=== PATIENT | male | born 1955 | race Caucasian/White ===

== ENCOUNTER → 2020-08-06 14:04 | Outpatient (BNVA) | payer OTHER, SELFPAY | PROVIDERS: PCP Family Medicine; Visit Provider Surgery ==

== ENCOUNTER 2020-08-14 09:47 | Outpatient (REF) | payer OTHER, SELFPAY | END 2020-08-14 09:48 | disposition home or self-care (01) | LOC: HO.LAB 09:47 | PROVIDERS: PCP Family Medicine; Visit Provider Surgery | DX: D49.2 Neoplasm of unspecified behavior of bone, soft tissue, and skin (principal) | CPT/HCPCS: 11403; 88305 ==

== ENCOUNTER → 2020-08-21 10:27 | Outpatient (BNVA) | payer OTHER, SELFPAY | PROVIDERS: PCP Family Medicine; Visit Provider Surgery ==

== ENCOUNTER 2020-09-05 13:05 | Outpatient (REF) | payer OTHER, SELFPAY ==
--- NOTE | ~2020-09-05 | XR_ITS ---
EXAMINATION: XR HAND WRIST, LEFT CLINICAL INFORMATION: L40.50 - Arthropathic psoriasis, unspecified COMPARISON: None TECHNIQUE: The left hand and wrist are imaged together in 3 large [id number] images include both areas. There are a total of 3 views. FINDINGS: There is no fracture, dislocation, destructive process. Bony mineralization is normal. The ulnar variance is neutral. The carpus shows no joint narrowing or erosive change or chondrocalcinosis. The MCP and interphalangeal joints are unremarkable. There is an incidental subtle bone island central capitate carpal bone. No focal soft tissue swelling. The pronator quadratus fat pad appears normal. XR/XR hand wrist LT IMPRESSION: No focal arthropathy.
--- NOTE | ~2020-09-05 | XR_ITS ---
EXAMINATION: XR CERVICAL SPINE CLINICAL INFORMATION: L40.50 - Arthropathic psoriasis, unspecified COMPARISON: None TECHNIQUE: 3 views of the cervical spine were obtained. FINDINGS: There is a bodies are normal in height. There is no vertebral compression, destructive process, or prevertebral soft tissue swelling. The odontoid appears intact. There are degenerative disc changes with disc narrowing and vertebral spurring C3-C7. There is mild facet degeneration upper cervical spine. There is 3 mm retrolisthesis C4 on C5 and just under 3 mm retrolisthesis C5 on C6. Both areas likely related to the spondylosis. No erosive changes. No cervical rib. XR/XR cervical spine 3V IMPRESSION: Cervical spondylosis with multilevel degenerative disc and degenerative facet changes. Mild retrolisthesis C4-C5 and at C5-C6.
[2020-09-05 14:39] LABS: MANUAL DIFF FLAG NO
[2020-09-05 14:45] LABS: Basophils Percent Auto 0.6 % (0-2); Eosinophils Absolute Auto 0.2 X10*3/uL (0.0-0.4); Hematocrit 42.7 % (42-52); Hemoglobin 14.1 g/dl (14.0-18.0); Imm Gran Abs Auto 0.02 X10*3/uL (0.00-0.03); Imm Gran Pct Auto 0.3 % (0.0-0.4); Lymphocytes Absolute Auto 1.2 X10*3/uL (1.2-4.9); Mean Corpuscular Hemoglobin 28.8 pg (27.0-33.0); Mean Corpuscular Volume 87.1 fL (80-98); Mean Platelet Volume 10.3 fL (9.4-12.4); Monocytes Absolute Auto 0.5 X10*3/uL (0.1-1.2); Monocytes Percent Auto 7.8 % (2-11); Neutrophils Absolute Auto 4.8 X10*3/uL (2.0-8.3); Neutrophils Percent Auto 70.3 % (45-73); Platelet Count 299 X10*3/uL (160-400); Red Cell Distribution Width 13.1 % (11.0-16.0); White Blood Count 6.8 X10*3/uL (4.8-10.8)
[2020-09-05 15:05] LABS: Alanine Aminotransferase 29 U/L (0-40); Albumin Level 4.1 g/dL (3.5-5.0); Alkaline Phosphatase 103 U/L (39-117); Anion Gap 10 (12-20); Aspartate Amino Transferase 26 U/L (5-37); Bilirubin Total 0.6 mg/dL (0.0-1.0); Blood Urea Nitrogen 26 mg/dL (9-16); C Reactive Protein 0.48 mg/dL (< or = 0.50); Calcium 9.6 mg/dL (8.4-10.2); Carbon Dioxide 32 mmol/L (22-29); Chloride 103 mmol/L (96-108); Estimated Glomerular Filt Rate > 60; Glucose Random 105 mg/dL (60-115); Potassium 4.8 mmol/L (3.3-5.1); Rheumatoid Factor < 15.0 IU/mL (<15.0); Sodium 140 mmol/L (135-145); Total Protein 6.6 g/dL (6.5-8.0)
[2020-09-05 15:31] LABS: Erythrocyte Sedimentation Rate 6 MM/HR (0-15)
[2020-09-06 08:24] LABS: HBc Num1 0.06 S/CO (0.00-0.79); HBsAGNum1 0.18 S/CO (0.00-0.99); Hepatitis B Core Antibody Nonreactive (Nonreactive); Hepatitis B Surface Antigen Negative (Negative); ~HepC Num1 0.34 S/CO (0.00-0.79); ~Hepatitis C Antibody Nonreactive (Nonreactive)
[2020-09-06 08:31] LABS: Hepatitis A Antibody IgM 0.25 Index (0-0.79); ~Hepatitis A Antibody IgM Nonreactive (Nonreactive); ~Hepatitis B Surface Antibody NONREACTIVE (Nonreactive)
[2020-09-06 17:22] LABS: Lyme Abs Screen <0.90 index
[2020-09-08 22:12] LABS: Cyclic Citrullinated Peptide <16 UNITS
[2020-09-09 11:02] LABS: TS Negative Control Passed; TS Panel A 0; TS Panel B 0; TS Positive Control Passed; TSpotTB Negative (SeeBelow)
== END 2020-09-05 13:06 | disposition home or self-care (01) ==
LOC: HO.LAB 13:05
PROVIDERS: PCP Family Medicine; Visit Provider Student in an Organized Health Care Education/Training Program
DX: L40.50 Arthropathic psoriasis, unspecified (principal); M25.50 Pain in unspecified joint
CPT/HCPCS: 36415; 72040; 73110; 73130; 80053; 85025; 85652; 86140; 86200; 86431; 86481; 86618; 86704; 86706; 86709; 86803; 87340

== ENCOUNTER → 2020-09-26 13:29 | Outpatient (BNVA) | payer OTHER, SELFPAY | PROVIDERS: PCP Family Medicine; Visit Provider Student in an Organized Health Care Education/Training Program ==

== ENCOUNTER → 2021-01-09 12:25 | Outpatient (BNVA) | payer OTHER, SELFPAY | PROVIDERS: PCP Family Medicine; Visit Provider Student in an Organized Health Care Education/Training Program ==

== ENCOUNTER 2021-05-09 11:17 | Outpatient (REF) | payer OTHER, SELFPAY ==
[2021-05-09 12:25] LABS: MANUAL DIFF FLAG NO
[2021-05-09 12:54] LABS: Basophils Absolute Auto 0.1 X10*3/uL (0.0-0.2); Basophils Percent Auto 0.6 % (0-2); Eosinophils Absolute Auto 0.2 X10*3/uL (0.0-0.4); Eosinophils Percent Auto 2.4 % (0-4); Hematocrit 41.5 % (42-52); Hemoglobin 13.5 g/dl (14.0-18.0); Imm Gran Abs Auto 0.02 X10*3/uL (0.00-0.03); Imm Gran Pct Auto 0.2 % (0.0-0.4); Lymphocytes Absolute Auto 1.3 X10*3/uL (1.2-4.9); Lymphocytes Percent Auto 16.6 % (20-40); Mean Corpuscular HGB Conc 32.5 g/dl (31.0-36.0); Mean Corpuscular Hemoglobin 28.4 pg (27.0-33.0); Mean Corpuscular Volume 87.4 fL (80-98); Mean Platelet Volume 10.4 fL (9.4-12.4); Monocytes Absolute Auto 0.6 X10*3/uL (0.1-1.2); Monocytes Percent Auto 7.6 % (2-11); Neutrophils Absolute Auto 5.9 X10*3/uL (2.0-8.3); Neutrophils Percent Auto 72.6 % (45-73); Platelet Count 278 X10*3/uL (160-400); Red Blood Count 4.75 X10*6/uL (4.60-5.80); Red Cell Distribution Width 13.2 % (11.0-16.0); White Blood Count 8.1 X10*3/uL (4.8-10.8)
[2021-05-09 13:21] LABS: Alanine Aminotransferase 21 U/L (0-40); Albumin Level 4.1 g/dL (3.5-5.0); Alkaline Phosphatase 90 U/L (39-117); Anion Gap 14 (12-20); Aspartate Amino Transferase 26 U/L (5-37); Bilirubin Total 0.6 mg/dL (0.0-1.0); Blood Urea Nitrogen 26 mg/dL (9-16); C Reactive Protein 0.63 mg/dL (< or = 0.50); Calcium 9.6 mg/dL (8.4-10.2); Carbon Dioxide 24 mmol/L (22-29); Chloride 109 mmol/L (96-108); Estimated Glomerular Filt Rate 57; Glucose Random 103 mg/dL (60-115); Potassium 4.8 mmol/L (3.3-5.1); Sodium 142 mmol/L (135-145); Total Protein 6.6 g/dL (6.5-8.0)
[2021-05-09 13:44] LABS: Erythrocyte Sedimentation Rate 3 MM/HR (0-15)
[2021-05-12 08:11] LABS: HBS Num1 0.34 mIU/mL (0-7.99); HBc Num1 0.05 S/CO (0.00-0.79); HBsAGNum1 0.16 S/CO (0.00-0.99); Hepatitis B Core Antibody Nonreactive (Nonreactive); Hepatitis B Surface Antigen Negative (Negative); ~Hepatitis B Surface Antibody NONREACTIVE (Nonreactive)
[2021-05-12 08:17] LABS: ~Hepatitis C Antibody Nonreactive (Nonreactive)
[2021-05-12 12:51] LABS: TS Negative Control Passed; TS Panel A 0; TS Panel B 0; TS Positive Control Passed; TSpotTB Negative (SeeBelow)
[2021-05-14 08:31] LABS: Hepatitis A Antibody IgM 0.18 Index (0-0.79); ~Hepatitis A Antibody IgM Nonreactive (Nonreactive)
== END 2021-05-09 11:18 | disposition home or self-care (01) ==
LOC: HO.LAB 11:17
PROVIDERS: PCP Family Medicine; Visit Provider Nurse Practitioner Family
DX: L40.50 Arthropathic psoriasis, unspecified (principal)
CPT/HCPCS: 36415; 80053; 85025; 85652; 86140; 86481; 86704; 86706; 86709; 86803; 87340

== ENCOUNTER 2021-05-29 15:54 | Outpatient (REF) | payer OTHER, SELFPAY ==
--- NOTE | ~2021-05-29 | MR_ITS ---
EXAMINATION: MR CERVICAL SPINE WITHOUT CONTRAST CLINICAL INFORMATION: Spondylosis without myelopathy or radiculopathy. COMPARISON: None available. TECHNIQUE: MRI of the cervical spine was performed using routine sequences without contrast. FINDINGS: There is reversal of the normal cervical lordosis. There is mild retrolisthesis of C4 on C5. Disc height loss is severe at C4-C5, moderate to severe C6-C7, and moderate at C3-C4 and C5-C6. No cervical cord signal abnormality is seen. The imaged portions of the intracranial contents appear normal. The extraspinal soft tissues appear normal. SPINAL LEVELS: C2-C3: No posterior disc abnormality. Severe left and moderate right facet arthropathy. No spinal canal or neural foraminal stenosis. C3-C4: Disc osteophyte complex with right more than left uncovertebral hypertrophy and severe right and moderate left facet arthropathy resulting in severe right neural foraminal stenosis. No spinal canal stenosis. C4-C5: Disc osteophyte complex with uncovertebral hypertrophy and moderate right and mild left facet arthropathy resulting in severe right and mild to moderate left neural foraminal stenosis. Mild spinal canal stenosis. C5-C6: Disc osteophyte complex with uncovertebral hypertrophy and mild facet arthropathy resulting in mild spinal canal stenosis and mild to moderate neural foraminal stenosis. C6-C7: Disc osteophyte complex with uncovertebral hypertrophy and mild facet arthropathy resulting in mild spinal canal stenosis and moderate left and mild right neural foraminal stenosis. C7-T1: Disc osteophyte complex without significant narrowing the spinal canal. Mild left neural foraminal stenosis. MR/MR cervical spine wo con IMPRESSION: Multilevel degenerative spondylosis without high-grade narrowing of the spinal canal. Neural foraminal stenosis is severe on the right at C3-C4, severe on the right at C4-C5, moderate on the left at C6-C7, and less advanced at other levels.
== END 2021-05-29 15:55 | disposition home or self-care (01) ==
LOC: HO.MRI 15:54
PROVIDERS: Visit Provider Nurse Practitioner Family
DX: M47.812 Spondylosis without myelopathy or radiculopathy, cervical region (principal); L40.50 Arthropathic psoriasis, unspecified
CPT/HCPCS: 72141

== ENCOUNTER 2021-09-02 12:29 | Outpatient (REF) | payer OTHER, SELFPAY ==
[2021-09-02 13:19] LABS: MANUAL DIFF FLAG NO
[2021-09-02 13:56] LABS: Basophils Absolute Auto 0.1 X10*3/uL (0.0-0.2); Basophils Percent Auto 0.7 % (0-2); Eosinophils Absolute Auto 0.2 X10*3/uL (0.0-0.4); Eosinophils Percent Auto 2.1 % (0-4); Hematocrit 44.4 % (42.0-52.0); Hemoglobin 14.4 g/dl (14.0-18.0); Imm Gran Abs Auto 0.02 X10*3/uL (0.00-0.03); Imm Gran Pct Auto 0.2 % (0.0-0.4); Lymphocytes Absolute Auto 1.5 X10*3/uL (1.2-4.9); Lymphocytes Percent Auto 17.1 % (20-40); Mean Corpuscular HGB Conc 32.4 g/dl (31.0-36.0); Mean Corpuscular Hemoglobin 28.3 pg (27.0-33.0); Mean Corpuscular Volume 87.2 fL (80.0-98.0); Mean Platelet Volume 10.5 fL (9.4-12.4); Monocytes Absolute Auto 0.6 X10*3/uL (0.1-1.2); Monocytes Percent Auto 7.1 % (2-11); Neutrophils Absolute Auto 6.2 x10*3/uL (2.0-8.3); Neutrophils Percent Auto 72.8 % (45-73); Platelet Count 316 X10*3/uL (160-400); Red Blood Count 5.09 X10*6/uL (4.60-5.80); Red Cell Distribution Width 12.9 % (11.0-16.0); White Blood Count 8.5 X10*3/uL (4.8-10.8)
[2021-09-02 14:31] LABS: Alanine Aminotransferase 27 U/L (0-40); Albumin Level 4.3 g/dL (3.5-5.0); Alkaline Phosphatase 97 U/L (39-117); Anion Gap 12 (12-20); Aspartate Amino Transferase 28 U/L (5-37); Bilirubin Total 0.7 mg/dL (0.0-1.0); Blood Urea Nitrogen 26 mg/dL (9-16); C Reactive Protein 0.97 mg/dL (< or = 0.50); Carbon Dioxide 28 mmol/L (22-29); Chloride 105 mmol/L (96-108); Estimated Glomerular Filt Rate > 60; Glucose Random 98 mg/dL (60-115); Potassium 4.9 mmol/L (3.3-5.1); Sodium 140 mmol/L (135-145); Total Protein 6.9 g/dL (6.5-8.0)
[2021-09-02 14:33] LABS: Erythrocyte Sedimentation Rate 5 MM/HR (0-15)
== END 2021-09-02 12:30 | disposition home or self-care (01) ==
LOC: HO.LAB 12:29
PROVIDERS: PCP Nurse Practitioner Adult Health; Visit Provider Nurse Practitioner Family
DX: L40.50 Arthropathic psoriasis, unspecified (principal); Z79.899 Other long term (current) drug therapy
CPT/HCPCS: 36415; 80053; 85025; 85652; 86140

== ENCOUNTER 2021-12-24 14:38 | Outpatient (REF) | payer OTHER, SELFPAY ==
--- NOTE | ~2021-12-24 | XR_ITS ---
EXAMINATION: BILATERAL HAND X-RAY CLINICAL INFORMATION: Psoriatic arthritis COMPARISON: Previous x-ray August 2020 TECHNIQUE: 3 views of each hand FINDINGS: Bone alignment is normal. No acute fracture or dislocation is seen. There is a small soft tissue calcification or ossification adjacent to the radial side of the left third MCP joint questionable for changes related to old trauma. There are small osteophytes, question subchondral cystic change and mild soft tissue swelling at the left first MCP joint. Joint spaces are otherwise normal. Soft tissues are otherwise normal. XR/XR hand RT min 3V IMPRESSION: Mild arthritis at the left first MCP joint. Small soft tissue ossification or calcification adjacent to the radial side of the left third MCP joint, question related to old trauma.
--- NOTE | ~2021-12-24 | XR_ITS ---
EXAMINATION: BILATERAL HAND X-RAY CLINICAL INFORMATION: Psoriatic arthritis COMPARISON: Previous x-ray August 2020 TECHNIQUE: 3 views of each hand FINDINGS: Bone alignment is normal. No acute fracture or dislocation is seen. There is a small soft tissue calcification or ossification adjacent to the radial side of the left third MCP joint questionable for changes related to old trauma. There are small osteophytes, question subchondral cystic change and mild soft tissue swelling at the left first MCP joint. Joint spaces are otherwise normal. Soft tissues are otherwise normal. XR/XR hand LT min 3V IMPRESSION: Mild arthritis at the left first MCP joint. Small soft tissue ossification or calcification adjacent to the radial side of the left third MCP joint, question related to old trauma.
[2021-12-24 14:55] LABS: MANUAL DIFF FLAG NO
[2021-12-24 15:06] LABS: Basophils Absolute Auto 0.1 X10*3/uL (0.0-0.2); Basophils Percent Auto 0.9 % (0-2); Eosinophils Absolute Auto 0.2 X10*3/uL (0.0-0.4); Eosinophils Percent Auto 2.9 % (0-4); Hematocrit 41.6 % (42.0-52.0); Hemoglobin 13.5 g/dl (14.0-18.0); Imm Gran Abs Auto 0.02 X10*3/uL (0.00-0.03); Imm Gran Pct Auto 0.2 % (0.0-0.4); Lymphocytes Absolute Auto 1.5 X10*3/uL (1.2-4.9); Lymphocytes Percent Auto 17.9 % (20-40); Mean Corpuscular HGB Conc 32.5 g/dl (31.0-36.0); Mean Corpuscular Hemoglobin 28.2 pg (27.0-33.0); Mean Platelet Volume 10.3 fL (9.4-12.4); Monocytes Absolute Auto 0.7 X10*3/uL (0.1-1.2); Neutrophils Absolute Auto 5.8 x10*3/uL (2.0-8.3); Neutrophils Percent Auto 70.1 % (45-73); Platelet Count 316 X10*3/uL (160-400); Red Blood Count 4.78 X10*6/uL (4.60-5.80); Red Cell Distribution Width 13.3 % (11.0-16.0); White Blood Count 8.2 X10*3/uL (4.8-10.8)
[2021-12-24 15:31] LABS: Alanine Aminotransferase 24 U/L (0-40); Alkaline Phosphatase 87 U/L (39-117); Anion Gap 12 (12-20); Aspartate Amino Transferase 26 U/L (5-37); Bilirubin Total 0.4 mg/dL (0.0-1.0); Blood Urea Nitrogen 22 mg/dL (9-16); C Reactive Protein 0.55 mg/dL (< or = 0.50); Calcium 9.3 mg/dL (8.4-10.2); Carbon Dioxide 27 mmol/L (22-29); Chloride 106 mmol/L (96-108); Estimated Glomerular Filt Rate 49; Glucose Random 100 mg/dL (60-115); Potassium 4.7 mmol/L (3.3-5.1); Sodium 140 mmol/L (135-145); Total Protein 6.4 g/dL (6.5-8.0)
[2021-12-24 15:52] LABS: Erythrocyte Sedimentation Rate 6 MM/HR (0-15)
== END 2021-12-24 14:39 | disposition home or self-care (01) ==
LOC: HO.XRAY 14:38
PROVIDERS: Visit Provider Nurse Practitioner Family
DX: L40.50 Arthropathic psoriasis, unspecified (principal)
CPT/HCPCS: 36415; 73130; 80053; 85025; 85652; 86140

== ENCOUNTER 2022-01-02 13:26 | Outpatient (REF) | payer OTHER, SELFPAY ==
[2022-01-02 14:24] LABS: Creatinine Urine 49.52 mg/dL; Microalbumin Urine < 5.0 mg/L
[2022-01-02 14:28] LABS: Alanine Aminotransferase 25 U/L (0-40); Albumin Level 4.1 g/dL (3.5-5.0); Alkaline Phosphatase 88 U/L (39-117); Anion Gap 11 (12-20); Aspartate Amino Transferase 29 U/L (5-37); Bilirubin Total 0.6 mg/dL (0.0-1.0); Blood Urea Nitrogen 19 mg/dL (9-16); Calcium 9.4 mg/dL (8.4-10.2); Carbon Dioxide 26 mmol/L (22-29); Chloride 103 mmol/L (96-108); Estimated Glomerular Filt Rate 51; Glucose Random 104 mg/dL (60-115); Potassium 4.4 mmol/L (3.3-5.1); Sodium 136 mmol/L (135-145); Total Protein 6.5 g/dL (6.5-8.0)
== END 2022-01-02 13:27 | disposition home or self-care (01) ==
LOC: HO.LAB 13:26
PROVIDERS: Visit Provider Nurse Practitioner Family
DX: R79.89 Other specified abnormal findings of blood chemistry (principal)
CPT/HCPCS: 36415; 80053; 82043

== ENCOUNTER 2022-05-08 12:28 | Outpatient (REF) | payer OTHER, SELFPAY ==
--- NOTE | ~2022-05-08 | XR_ITS ---
EXAMINATION: XR FOOT, LEFT CLINICAL INFORMATION: Arthropathic psoriasis COMPARISON: None TECHNIQUE: AP, lateral, and oblique views of the left foot. FINDINGS: The bones and soft tissues are normal. No fracture. Alignment is anatomic. Joint spaces are maintained. XR/XR foot LT 2V IMPRESSION: Normal left foot.
--- NOTE | ~2022-05-08 | XR_ITS ---
EXAMINATION: XR FOOT, RIGHT CLINICAL INFORMATION: Arthropathic psoriasis COMPARISON: None TECHNIQUE: AP, lateral, and oblique views of the right foot. FINDINGS: The bones and soft tissues are normal. No fracture. Alignment is anatomic. Joint spaces are maintained. There is plantar and superior calcaneal spurring. XR/XR foot RT 2V IMPRESSION: Normal right foot. Calcaneal spurring
[2022-05-08 12:42] LABS: MANUAL DIFF FLAG NO
[2022-05-08 13:26] LABS: Basophils Absolute Auto 0.1 X10*3/uL (0.0-0.2); Basophils Percent Auto 0.8 % (0-2); Eosinophils Absolute Auto 0.2 X10*3/uL (0.0-0.4); Hematocrit 44.5 % (42.0-52.0); Hemoglobin 14.7 g/dl (14.0-18.0); Imm Gran Abs Auto 0.02 X10*3/uL (0.00-0.03); Imm Gran Pct Auto 0.3 % (0.0-0.4); Lymphocytes Absolute Auto 1.4 X10*3/uL (1.2-4.9); Lymphocytes Percent Auto 17.4 % (20-40); Mean Corpuscular Hemoglobin 28.8 pg (27.0-33.0); Mean Corpuscular Volume 87.3 fL (80.0-98.0); Mean Platelet Volume 10.1 fL (9.4-12.4); Monocytes Absolute Auto 0.6 X10*3/uL (0.1-1.2); Monocytes Percent Auto 7.7 % (2-11); Neutrophils Absolute Auto 5.7 x10*3/uL (2.0-8.3); Neutrophils Percent Auto 71.8 % (45-73); Platelet Count 328 X10*3/uL (160-400); Red Cell Distribution Width 12.8 % (11.0-16.0); White Blood Count 7.9 X10*3/uL (4.8-10.8)
[2022-05-08 13:47] LABS: Alanine Aminotransferase 20 U/L (0-40); Albumin Level 4.3 g/dL (3.5-5.0); Alkaline Phosphatase 92 U/L (39-117); Anion Gap 17 (12-20); Aspartate Amino Transferase 22 U/L (5-37); Bilirubin Total 0.6 mg/dL (0.0-1.0); Blood Urea Nitrogen 17 mg/dL (9-16); C Reactive Protein 0.96 mg/dL (< or = 0.50); Calcium 9.9 mg/dL (8.4-10.2); Carbon Dioxide 29 mmol/L (22-29); Chloride 103 mmol/L (96-108); Estimated Glomerular Filt Rate > 60; Glucose Random 91 mg/dL (60-115); Potassium 5.5 mmol/L (3.3-5.1); Sodium 143 mmol/L (135-145)
[2022-05-08 14:12] LABS: Erythrocyte Sedimentation Rate 7 MM/HR (0-15)
[2022-05-11 04:37] LABS: HBc Num1 0.13 S/CO (0.00-0.79); HBsAGNum1 0.17 S/CO (0.00-0.99); Hepatitis B Core Antibody Nonreactive (Nonreactive); Hepatitis B Surface Antigen Negative (Negative); ~HepC Num1 0.43 S/CO (0.00-0.79); ~Hepatitis B Surface Antibody NONREACTIVE (Nonreactive); ~Hepatitis C Antibody Nonreactive (Nonreactive)
[2022-05-11 21:32] LABS: TS Negative Control Passed; TS Panel A 1; TS Panel B 2; TS Positive Control Passed; TSpotTB Negative (Negative)
[2022-05-13 04:05] LABS: Hepatitis A Antibody IgM 0.21 Index (0-0.79); ~Hepatitis A Antibody IgM Nonreactive (Nonreactive)
== END 2022-05-08 12:29 | disposition home or self-care (01) ==
LOC: HO.XRAY 12:28
PROVIDERS: Visit Provider Nurse Practitioner Family
DX: L40.50 Arthropathic psoriasis, unspecified (principal)
CPT/HCPCS: 36415; 73620; 80053; 85025; 85652; 86140; 86481; 86704; 86706; 86709; 86803; 87340

== ENCOUNTER 2022-05-11 11:50 | Outpatient (REF) | payer OTHER, SELFPAY ==
[2022-05-11 12:48] LABS: Alanine Aminotransferase 20 U/L (0-40); Aspartate Amino Transferase 20 U/L (5-37); Estimated Glomerular Filt Rate > 60; Potassium 4.5 mmol/L (3.3-5.1)
== END 2022-05-11 11:51 | disposition home or self-care (01) ==
LOC: HO.LAB 11:50
PROVIDERS: Visit Provider Nurse Practitioner Family
DX: L40.50 Arthropathic psoriasis, unspecified (principal); E87.5 Hyperkalemia
CPT/HCPCS: 36415; 82565; 84132; 84450; 84460

== ENCOUNTER 2022-07-06 14:22 | Outpatient (REF) | payer OTHER, SELFPAY ==
[2022-07-06 15:49] LABS: Anion Gap 11 (12-20); Blood Urea Nitrogen 24 mg/dL (9-16); Calcium 9.4 mg/dL (8.4-10.2); Carbon Dioxide 28 mmol/L (22-29); Chloride 106 mmol/L (96-108); Estimated Glomerular Filt Rate > 60; Glucose Random 90 mg/dL (60-115); Potassium 4.7 mmol/L (3.3-5.1); Sodium 140 mmol/L (135-145)
== END 2022-07-06 14:23 | disposition home or self-care (01) ==
LOC: HO.LAB 14:22
PROVIDERS: PCP Student in an Organized Health Care Education/Training Program; Visit Provider Student in an Organized Health Care Education/Training Program
DX: E87.5 Hyperkalemia (principal)
CPT/HCPCS: 36415; 80048

== ENCOUNTER → 2022-09-21 13:30 | Outpatient (BNVA) | payer MEDICARE, SELFPAY | PROVIDERS: PCP Student in an Organized Health Care Education/Training Program; Visit Provider Nurse Practitioner Family | DX: L40.50 Arthropathic psoriasis, unspecified (principal) | CPT/HCPCS: 99212 ==

== ENCOUNTER 2022-12-29 11:03 | Outpatient (REF) | payer MEDICARE, SELFPAY ==
[2022-12-29 11:18] LABS: MANUAL DIFF FLAG NO
[2022-12-29 11:27] LABS: Basophils Absolute Auto 0.1 X10*3/uL (0.0-0.2); Basophils Percent Auto 0.8 % (0-2); Eosinophils Absolute Auto 0.3 X10*3/uL (0.0-0.4); Eosinophils Percent Auto 3.5 % (0-4); Hematocrit 43.5 % (42.0-52.0); Imm Gran Abs Auto 0.02 X10*3/uL (0.00-0.03); Imm Gran Pct Auto 0.3 % (0.0-0.4); Lymphocytes Absolute Auto 1.4 X10*3/uL (1.2-4.9); Lymphocytes Percent Auto 17.7 % (20-40); Mean Corpuscular HGB Conc 32.2 g/dl (31.0-36.0); Mean Corpuscular Hemoglobin 28.3 pg (27.0-33.0); Mean Corpuscular Volume 88.1 fL (80.0-98.0); Mean Platelet Volume 10.3 fL (9.4-12.4); Monocytes Absolute Auto 0.7 X10*3/uL (0.1-1.2); Monocytes Percent Auto 8.4 % (2-11); Neutrophils Absolute Auto 5.4 x10*3/uL (2.0-8.3); Neutrophils Percent Auto 69.3 % (45-73); Platelet Count 289 X10*3/uL (160-400); Red Blood Count 4.94 X10*6/uL (4.60-5.80); Red Cell Distribution Width 13.3 % (11.0-16.0); White Blood Count 7.7 X10*3/uL (4.8-10.8)
[2022-12-29 12:06] LABS: Alanine Aminotransferase 20 U/L (0-40); Aspartate Amino Transferase 21 U/L (5-37); C Reactive Protein 0.44 mg/dL (< or = 0.50); Estimated Glomerular Filt Rate 59
[2022-12-29 12:08] LABS: Erythrocyte Sedimentation Rate 3 MM/HR (0-15)
== END 2022-12-29 11:04 | disposition home or self-care (01) ==
LOC: HO.LAB 11:03
PROVIDERS: Visit Provider Nurse Practitioner Family
DX: L40.50 Arthropathic psoriasis, unspecified (principal)
CPT/HCPCS: 36415; 82565; 84450; 84460; 85025; 85652; 86140

== ENCOUNTER → 2023-01-06 10:43 | Outpatient (BNVA) | payer MEDICARE, SELFPAY | PROVIDERS: PCP Student in an Organized Health Care Education/Training Program; Visit Provider Internal Medicine Rheumatology | DX: L40.50 Arthropathic psoriasis, unspecified (principal); I10 Essential (primary) hypertension; Z79.1 Long term (current) use of non-steroidal anti-inflammatories (NSAID) | CPT/HCPCS: 99212 ==

== ENCOUNTER 2023-03-17 07:52 | Outpatient (REF) | payer MEDICARE, SELFPAY ==
[2023-03-17 08:24] LABS: MANUAL DIFF FLAG NO
[2023-03-17 08:42] LABS: Basophils Absolute Auto 0.1 X10*3/uL (0.0-0.2); Basophils Percent Auto 0.7 % (0-2); Eosinophils Absolute Auto 0.2 X10*3/uL (0.0-0.4); Hematocrit 43.2 % (42.0-52.0); Hemoglobin 14.1 g/dl (14.0-18.0); Imm Gran Abs Auto 0.02 X10*3/uL (0.00-0.03); Imm Gran Pct Auto 0.3 % (0.0-0.4); Lymphocytes Absolute Auto 1.3 X10*3/uL (1.2-4.9); Lymphocytes Percent Auto 17.1 % (20-40); Mean Corpuscular HGB Conc 32.6 g/dl (31.0-36.0); Mean Corpuscular Hemoglobin 29.2 pg (27.0-33.0); Mean Corpuscular Volume 89.4 fL (80.0-98.0); Mean Platelet Volume 10.6 fL (9.4-12.4); Monocytes Absolute Auto 0.7 X10*3/uL (0.1-1.2); Monocytes Percent Auto 8.7 % (2-11); Neutrophils Absolute Auto 5.4 x10*3/uL (2.0-8.3); Neutrophils Percent Auto 70.2 % (45-73); Platelet Count 296 X10*3/uL (160-400); Red Blood Count 4.83 X10*6/uL (4.60-5.80); Red Cell Distribution Width 13.3 % (11.0-16.0); White Blood Count 7.6 X10*3/uL (4.8-10.8)
[2023-03-17 08:57] LABS: Estimated Average Glucose 103 mg/dL; Hemoglobin A1c % 5.2 % (<6.0)
[2023-03-17 09:14] LABS: Alanine Aminotransferase 19 U/L (0-40); Albumin Level 3.9 g/dL (3.5-5.0); Alkaline Phosphatase 76 U/L (39-117); Anion Gap 11 (12-20); Aspartate Amino Transferase 25 U/L (5-37); Bilirubin Total 0.5 mg/dL (0.0-1.0); Blood Urea Nitrogen 24 mg/dL (9-16); Calcium 9.7 mg/dL (8.4-10.2); Carbon Dioxide 29 mmol/L (22-29); Chloride 107 mmol/L (96-108); Cholesterol 207 mg/dL (<200); Estimated Glomerular Filt Rate > 60; Glucose Random 103 mg/dL (60-115); HDL Cholesterol 57 mg/dL (>40); LDL Cholesterol Calculated 132 mg/dL (<100); Potassium 4.7 mmol/L (3.3-5.1); Sodium 142 mmol/L (135-145); Total Protein 6.6 g/dL (6.5-8.0); Triglycerides 94 mg/dL (<150)
[2023-03-17 09:19] LABS: Appearance Urine Clear; Color Urine Yellow; Glucose Urine UA Negative (Negative); Leukocyte Esterase Urine Trace (Negative); Nitrite Urine Negative (Negative); Specific Gravity - Urine 1.015 (1.005-1.025); UMIC TRIGGER UACC YES; Urine Blood Negative (Negative); Urine Ketones Negative (Negative); Urine Protein Negative (Neg-Trace)
[2023-03-17 09:22] LABS: Bacteria Urine None Seen (None Seen); Hyaline Casts Urine 0-2 /LPF (0-2); RBC Urine 0-2 /HPF (0-2); Squamous Epithelial Cell Urine 0-2 /HPF (0-2); WBC Urine 0-5 /HPF (0-5)
[2023-03-17 09:22] LABS: Erythrocyte Sedimentation Rate 5 MM/HR (0-15)
[2023-03-17 09:23] LABS: Prostate Specific Antigen Scr 1.93 ng/mL (<0.05-4.0)
[2023-03-17 09:30] LABS: Thyroid Stimulating Hormone 2.01 uIU/mL (0.32-4.0); Vitamin D 25-OH Total 84.4 ng/mL (>30)
[2023-03-18 13:13] LABS: Lyme Abs Screen <0.90 index
[2023-03-23 20:43] LABS: Babesia IgG <1:64 titer (<1:64); Babesia IgM <1:20 titer (<1:20)
[2023-03-25 13:39] LABS: A. Phagocytophilum Ab IgG <1:64 (<1:64); A. Phagocytophilum Ab IgM <1:20 (<1:20); E. Chaffeensis Ab IgG <1:64 (<1:64); E. Chaffeensis Ab IgM <1:20 (<1:20)
== END 2023-03-17 07:53 | disposition home or self-care (01) ==
LOC: HO.LAB 07:52
PROVIDERS: Absent Provider Student in an Organized Health Care Education/Training Program; PCP Student in an Organized Health Care Education/Training Program; Visit Provider Internal Medicine Rheumatology
DX: Z12.5 Encounter for screening for malignant neoplasm of prostate (principal); R63.4 Abnormal weight loss; E55.9 Vitamin D deficiency, unspecified
CPT/HCPCS: 36415; 80053; 80061; 81001; 82306; 83036; 84153; 84443; 85025; 85652; 86140; 86617; 86618; 86666; 86753

== ENCOUNTER 2023-06-09 09:11 | Outpatient (AMB) | payer MEDICARE, SELFPAY ==
[2023-06-09 09:13] VITALS: BP 132/70; PULSE 95; TEMP 36.1; O2SAT 95
--- NOTE | 2023-06-09 09:13 | A.OFFVIS_ITS ---
Intake Vital Signs 06/09/23 09:13 BP 132/70 Blood Pressure Location Lt brachial Position Sitting Pulse 95 Pulse Source Pulse Oximeter Temp 97 F Temp Source Skin Pulse Oximetry (%) 95 Intake Visit Reasons: PSA Intake Note: Patient presents today to follow up on PsA. c/o kiersten knee pain. Right knee pain and swelling started at the end of February. Left posterior knee pain started early April. 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 He continues to get intermittent knee pain. More recently this has been over the patellar tendons bilaterally. He is on some physical therapy for now but seems to say that when he does the exercises he feels a bit worse. He has not noticed any recent swelling in the knees. Occasionally there has been some left posterior knee pain. He also notes enlargement at the right sternoclavicular joint. This is occasionally uncomfortable. He gets occasional patches of scaly skin that he treats with a topical agent but for the most point there is very minimal psoriasis. He does not have any back or neck pains. He definitely wants to get back to skiing during the winter so was concerned about his functioning. He does take naproxen 500 mg twice a day which he thinks is quite helpful. He is on medications for blood pressure control as well. I have been concerned about his borderline elevated creatinine but it seems to have been relatively stable in the last year or 2. [facility] Medical History (Updated 06/09/23 @ 15:01 by Donny Gilliam MD) Seborrheic keratosis Hypertension Psoriatic arthritis Surgical History History of excision of mass History of appendectomy History of wisdom tooth extraction Family History Paternal Grandmother History of cancer (Updated 06/09/23 @ 09:19 by ANASTASIIA Galindo) Alcohol intake: current Alcohol intake frequency: a few times a month Alcohol type: beer Patient Tobacco Use Status: Never used Tobacco e-Cigarette/Vaping Use: Never Used Review of Systems Const Details: Negative for appetite change, weight change, fever, chills, malaise and fatigue Eyes Details: Negative for vision change, dry eyes,headaches and dizziness Card Details: Negative chest pain, edema and syncope Resp Details: Negative for SOB, cough and wheezing GI Details: Negative indigestion/heartburn, nausea, abdominal pain, bowel changes, diarrhea, constipation and bloody stool. Endo Details: Negative for polyuria and polydypsia Frank/Lymph Details: Negative for excessive bruising or bleeding. Physical Exam Vital Signs: Last Vital Signs Temp 97 F 06/09/23 09:13 Pulse 95 06/09/23 09:13 BP 132/70 06/09/23 09:13 Pulse Ox 95 06/09/23 09:13 APPEARANCE: Patient in no acute distress EYES no redness, pupils equal and reactive to light, eyelids normal EXTREMITIES: No edema, no calf tenderness, normal peripheral pulses. SKIN: No inflammatory or neoplastic lesions. Normal color and turgor JOINT EXAM: ?? EYES no redness, pupils equal and reactive to light, eyelids normal EXTREMITIES: No edema, no calf tenderness, normal peripheral pulses. SKIN: No inflammatory or neoplastic lesions. Normal color and turgor JOINT EXAM: Cervical Spine:? Full range of motion without pain; no tenderness. Thoracic Spine: No scoliosis.? No tenderness on palpation. Chest wall: There is enlargement, mostly bony, at the right sternolavicular joint. This area is only minimally tender without redness or warmth. Lumbar Spine:? Alignment normal.? Full range of motion without pain, no tenderness. Hands: LEFT: Bony enlargement of the CMC no tenderness, swelling, increased warmth or erythema.? There is some boutonniere deformity at the thumb. There is mild tenderness at the 1st MCP. The that joint may be slightly swollen. The remainder of the hand with normal pain-free range of motion without tenderness, swelling, increased warmth or erythema. Able to make a full fist and has a good butt maker strength. ? RIGHT:? Normal pain-free range of motion with some slight boutonniere deformity at the thumb. No areas of tenderness, swelling, increased warmth or erythema.? Able to make a full fist and has good butt maker strength. Wrists: Flexion and extension intact to 75 degrees. There is no tenderness, swelling, increased warmth or erythema. Elbows: Normal pain-free range of motion without tenderness, swelling, increased warmth or erythema. Shoulders:?? Full range of motion without pain. No tenderness, weakness, swellin g, increased warmth or erythema. Hips:? Full range of motion without pain. Hip bursa:? No tenderness. Knees:? right: There is slight pain with extremes of flexion. This is felt over the patellar tendon which is mildly tender but there is no redness or swelling. There is no joint margin tenderness, redness or swelling. No popliteal tenderness or swelling. Left: Normal pain-free range of motion with minimal tenderness over the patellar tendon. The joint space has no effusion, tenderness, soft tissue swelling, increased warmth or erythema.? There is no crepitation Ankles: Normal pain-free range of motion without tenderness, swelling, increased warmth or erythema. Feet: LEFT:? Bunion deformity at the 1st toe There is mild bony enlargement at the 1st toe and some hallux valgus deformity at the 1st toe but no tenderness. Elsewhere there is no tenderness, swelling, increased warmth or erythema. ?RIGHT:? Bunion deformity at the 1st MTP with some hallux valgus deformity and bony enlargement but no tenderness. The other joints have no tenderness or swelling. Some hammertoe deformity at the 2nd to thee ? 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 This could be a result of old trauma and secondary OA or could be some activity of psoriatic arthritis. Elsewhere there is some mild tenderness in the patellar tendons bilaterally which could be tendonitis from psoriatic arthritis or just overuse. I think for now he should continue with the efforts with physical therapy. I told him that if he wanted we could pursue treatment with DMARD therapy for possible psoriatic arthritis. That would run the risk of side effects such as infection if we use immunosuppressive drugs. He had trouble with a walking pneumonia that developed when he was on leflunomide in the past. We might consider Otezla since it does not seem to be as immunosuppressive. It does have the potential for GI side effects however. We will recheck his renal function and urine protein to monitor his naproxen use. A follow-up in 3 months or so seems reasonable. 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
== END 2023-06-09 09:56 | disposition home or self-care (01) ==
PROVIDERS: PCP Student in an Organized Health Care Education/Training Program; Visit Provider Internal Medicine Rheumatology
DX: L40.9 Psoriasis, unspecified (principal); Z79.1 Long term (current) use of non-steroidal anti-inflammatories (NSAID)
CPT/HCPCS: 99213

== ENCOUNTER → 2023-06-09 09:11 | Outpatient (BNVA) | payer MEDICARE, SELFPAY | PROVIDERS: PCP Student in an Organized Health Care Education/Training Program; Visit Provider Internal Medicine Rheumatology | DX: L40.50 Arthropathic psoriasis, unspecified (principal); Z79.1 Long term (current) use of non-steroidal anti-inflammatories (NSAID) | CPT/HCPCS: 99212 ==

== ENCOUNTER 2023-06-09 09:59 | Outpatient (REF) | payer MEDICARE, SELFPAY ==
[2023-06-09 10:44] LABS: Estimated Glomerular Filt Rate 50
[2023-06-09 11:15] LABS: Creatinine Urine 141.87 mg/dL; Total Protein Urine Random < 7 mg/dL (<12)
== END 2023-06-09 10:00 | disposition home or self-care (01) ==
LOC: HO.10HDL 09:59
PROVIDERS: Visit Provider Internal Medicine Rheumatology
DX: Z79.899 Other long term (current) drug therapy (principal)
CPT/HCPCS: 36415; 82565; 82570; 84156

== ENCOUNTER 2023-07-08 07:58 | Outpatient (REF) | payer MEDICARE, SELFPAY ==
[2023-07-08 09:06] LABS: MANUAL DIFF FLAG NO
[2023-07-08 09:23] LABS: Basophils Absolute Auto 0.1 X10*3/uL (0.0-0.2); Basophils Percent Auto 0.7 % (0-2); Eosinophils Absolute Auto 0.2 X10*3/uL (0.0-0.4); Eosinophils Percent Auto 2.6 % (0-4); Hematocrit 41.4 % (42.0-52.0); Hemoglobin 13.7 g/dl (14.0-18.0); Imm Gran Abs Auto 0.02 X10*3/uL (0.00-0.03); Imm Gran Pct Auto 0.2 % (0.0-0.4); Lymphocytes Absolute Auto 1.3 X10*3/uL (1.2-4.9); Lymphocytes Percent Auto 15.7 % (20-40); Mean Corpuscular HGB Conc 33.1 g/dl (31.0-36.0); Mean Corpuscular Hemoglobin 29.3 pg (27.0-33.0); Mean Corpuscular Volume 88.7 fL (80.0-98.0); Monocytes Absolute Auto 0.7 X10*3/uL (0.1-1.2); Monocytes Percent Auto 7.9 % (2-11); Neutrophils Percent Auto 72.9 % (45-73); Platelet Count 320 X10*3/uL (160-400); Red Blood Count 4.67 X10*6/uL (4.60-5.80); Red Cell Distribution Width 12.7 % (11.0-16.0); White Blood Count 8.2 X10*3/uL (4.8-10.8)
[2023-07-08 09:43] LABS: Alanine Aminotransferase 18 U/L (0-40); Albumin Level 3.9 g/dL (3.5-5.0); Alkaline Phosphatase 84 U/L (39-117); Anion Gap 12 (12-20); Aspartate Amino Transferase 21 U/L (5-37); Bilirubin Total 0.4 mg/dL (0.0-1.0); Blood Urea Nitrogen 23 mg/dL (9-16); C Reactive Protein 0.67 mg/dL (< or = 0.50); Calcium 9.8 mg/dL (8.4-10.2); Carbon Dioxide 28 mmol/L (22-29); Chloride 107 mmol/L (96-108); Estimated Glomerular Filt Rate > 60; Glucose Random 108 mg/dL (60-115); Potassium 4.8 mmol/L (3.3-5.1); Sodium 142 mmol/L (135-145); Total Protein 6.7 g/dL (6.5-8.0)
[2023-07-08 10:00] LABS: Erythrocyte Sedimentation Rate 7 MM/HR (0-15)
== END 2023-07-08 07:59 | disposition home or self-care (01) ==
LOC: HO.LAB 07:58
PROVIDERS: PCP Student in an Organized Health Care Education/Training Program; Visit Provider Student in an Organized Health Care Education/Training Program
DX: L40.50 Arthropathic psoriasis, unspecified (principal); L40.9 Psoriasis, unspecified; Z79.1 Long term (current) use of non-steroidal anti-inflammatories (NSAID)
CPT/HCPCS: 36415; 80053; 85025; 85652; 86140; 99212

== ENCOUNTER 2023-07-08 07:58 | Outpatient (AMB) | payer MEDICARE, SELFPAY ==
--- NOTE | 2023-07-08 08:11 | A.OFFVIS_ITS ---
Intake Vital Signs 07/08/23 08:15 Height 5 ft 9 in Weight 162 lb 14.746 oz BMI 24.1 BP 124/82 Blood Pressure Location Rt brachial Position Sitting Pulse 75 Pulse Source Pulse Oximeter Temp 97.4 F Temp Source Skin Pulse Oximetry (%) 99 Oxygen Delivery Method Room Air Intake Visit Reasons: PSA Intake Note: Patient presents today for follow up. Would like to discuss medication change. Reports right toe has been pointing up for a few weeks now. 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 He states that he was diagnosed psoriasis about 20 years ago and psoriatic arthritis in the 15 years ago. He stated that he was on Arava for 2-3 years and while he was on Arava would have walking pneumonia once a year. Since Arava was discontinued he did not have any recurrent pneumonias. Patient has been taking naproxen 500 mg Twice daily for years however he was recently evaluated by his PCP who advised him to take naproxen 500 mg in the morning and take Tylenol at night. He has been doing that for the last week without worsening symptoms. He states that he has hammertoe affecting his right 2nd toe and it is starting to affect his right 3rd toe. He has minimal left wrist pain today. Continues to have mild psoriasis aches patches, some on left elbow and scattered on his back and legs. Previous history by Dr. Gilliam: The patient presents for evaluation of his joint pains and psoriasis. He continues to get intermittent knee pain. More recently this has been over the patellar tendons bilaterally. He is on some physical therapy for now but seems to say that when he does the exercises he feels a bit worse. He has not noticed any recent swelling in the knees. Occasionally there has been some left posterior knee pain. He also notes enlarg ement at the right sternoclavicular joint. This is occasionally uncomfortable. He gets occasional patches of scaly skin that he treats with a topical agent but for the most point there is very minimal psoriasis. He does not have any back or neck pains. He definitely wants to get back to skiing during the winter so was concerned about his functioning. He does take naproxen 500 mg twice a day w hich he thinks is quite helpful. He is on medications for blood pressure control as well. I have been concerned about his borderline elevated creatinine but it seems to have been relatively stable in the last year or 2. [facility] Medical History Seborrheic keratosis Hypertension Psoriatic arthritis Surgical History History of excision of mass History of appendectomy History of wisdom tooth extraction Family History Paternal Grandmother History of cancer Social History Alcohol intake: current Alcohol intake frequency: a few times a month Alcohol type: beer Patient Tobacco Use Status: Never used Tobacco e-Cigarette/Vaping Use: Never Used Review of Systems Musc Reports deformity, Reports arthralgias, Reports joint swelling and Reports stiffness Skin/Breast Reports rash Physical Exam Vital Signs: Last Vital Signs Temp 97.4 F 07/08/23 08:15 Pulse 75 07/08/23 08:15 BP 124/82 07/08/23 08:15 Pulse Ox 99 07/08/23 08:15 Oxygen Delivery Method Room Air 07/08/23 08:15 BMI result Body Mass Index 24.1 Const General: cooperative, healthy appearing and comfortable Nutritional Appearance: average body habitus Orientation/consciousness: patient oriented x3 Limitations: no limitations HEENT Head: Yes normocephalic and Yes atraumatic Mouth: moist mucous membranes Resp Effort & Inspection: normal respiratory effort and able to speak in complete sentences Auscultation: clear to auscultation bilaterally Cardio Rate: regular rate Rhythm: regular rhythm GI Inspection: No distended Palpation (GI): Soft to palpation Skin Other: Psoriasis patch on extensor surface of left elbow, scattered tiny patches on back and legs Neuro General: patient oriented x3 Extrem Other: Mild dose oral left wrist tenderness and pain with flexion extension No active synovitis otherwise of both upper extremities Negative straight leg raise test bilaterally Negative Fabere test bilaterally Few nail pitting Right foot bunion Dactylitis affecting right 4th toe Assessment & Plan Assessment & Plan (1) Psoriatic arthritis: Comment: PSO dx in his 40s PsA dx in his 50s Arava in his 50s for 2-3 years developed 1 yearly episode of walking pneumonia. Did not recur when Arava was discontinued. Has been managing with naproxen since then Code(s): L40.50 - Arthropathic psoriasis, unspecified Plan: 67-year-old male with psoriasis and psoriatic arthritis returns for follow-up. 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 On exam he has dactylitis of his right foot mild left wrist synovitis. Needs to have psoriasis patches. In the past patient was on our of the for 2-3 years which was discontinued due to development of walking pneumonia every year. Arava has since been discontinued. Labs show fluctuating kidney function. I would like to reduce the need for NSAIDs. Patient needs another DMARD to treat his psoriasis and psoriatic arthritis. Discussed risks and benefits of Otezla. Patient agreed to proceed. 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 Check labs today to evaluate kidney function (4) Immunization counseling: Code(s): Z71.85 - Encounter for immunization safety counseling Plan: Patient will be seeing his PCP tomorrow. I suggested that patient get the flu vaccine for this season and new COVID booster Plan I spent 40 minutes reviewing patient's chart, evaluating patient, ordering diagnostic workup, counseling patient and documenting in the chart Orders: Orders Complete Blood Count Auto Diff 3 Months L40.50 - Arthropathic psoriasis, unspecified Erythrocyte Sedimentation Rate 3 Months L40.50 - Arthropathic psoriasis, unspecified Complete Blood Count Auto Diff Today L40.50 - Arthropathic psoriasis, unspecified Comprehensive Met. Panel Today L40.50 - Arthropathic psoriasis, unspecified Erythrocyte Sedimentation Rate Today L40.50 - Arthropathic psoriasis, unspecified Comprehensive Met. Panel 3 Months L40.50 - Arthropathic psoriasis, unspecified C Reactive Protein 3 Months L40.50 - Arthropathic psoriasis, unspecified C Reactive Protein Today L40.50 - Arthropathic psoriasis, unspecified Coding Level of Care Code Est Pt Level 5 (96360) Diagnoses Psoriatic arthritis L40.50 Psoriasis L40.9 Encntr long-term NSAID use Z79.1 Immunization counseling Z71.85
[2023-07-08 08:15] VITALS: BP 124/82; PULSE 75; TEMP 36.3; O2SAT 99; BMI 24.1
== END 2023-07-08 08:43 | disposition home or self-care (01) ==
PROVIDERS: PCP Student in an Organized Health Care Education/Training Program; Visit Provider Student in an Organized Health Care Education/Training Program
DX: L40.50 Arthropathic psoriasis, unspecified (principal); L40.9 Psoriasis, unspecified; Z79.1 Long term (current) use of non-steroidal anti-inflammatories (NSAID); Z71.85 Encounter for immunization safety counseling
CPT/HCPCS: 99215

== ENCOUNTER 2023-10-07 11:15 | Outpatient (REF) | payer MEDICARE, SELFPAY ==
[2023-10-07 11:25] LABS: MANUAL DIFF FLAG NO
[2023-10-07 11:30] LABS: Basophils Absolute Auto 0.1 X10*3/uL (0.0-0.2); Basophils Percent Auto 0.7 % (0-2); Eosinophils Absolute Auto 0.3 X10*3/uL (0.0-0.4); Eosinophils Percent Auto 3.7 % (0-4); Hematocrit 45.2 % (42.0-52.0); Imm Gran Abs Auto 0.01 X10*3/uL (0.00-0.03); Imm Gran Pct Auto 0.1 % (0.0-0.4); Lymphocytes Absolute Auto 1.6 X10*3/uL (1.2-4.9); Lymphocytes Percent Auto 22.3 % (20-40); Mean Corpuscular HGB Conc 33.2 g/dl (31.0-36.0); Mean Corpuscular Hemoglobin 29.1 pg (27.0-33.0); Mean Corpuscular Volume 87.6 fL (80.0-98.0); Mean Platelet Volume 10.2 fL (9.4-12.4); Monocytes Absolute Auto 0.6 X10*3/uL (0.1-1.2); Monocytes Percent Auto 9.2 % (2-11); Neutrophils Absolute Auto 4.5 x10*3/uL (2.0-8.3); Platelet Count 279 X10*3/uL (160-400); Red Blood Count 5.16 X10*6/uL (4.60-5.80); Red Cell Distribution Width 13.2 % (11.0-16.0)
[2023-10-07 12:39] LABS: Alanine Aminotransferase 26 U/L (0-40); Albumin Level 4.1 g/dL (3.5-5.0); Alkaline Phosphatase 82 U/L (39-117); Anion Gap 12 (12-20); Aspartate Amino Transferase 24 U/L (5-37); Bilirubin Total 0.5 mg/dL (0.0-1.0); Blood Urea Nitrogen 20 mg/dL (9-16); C Reactive Protein 0.37 mg/dL (< or = 0.50); Calcium 10.1 mg/dL (8.4-10.2); Carbon Dioxide 29 mmol/L (22-29); Chloride 104 mmol/L (96-108); Estimated Glomerular Filt Rate > 60; Glucose Random 120 mg/dL (60-115); Potassium 4.4 mmol/L (3.3-5.1); Sodium 141 mmol/L (135-145)
[2023-10-07 13:21] LABS: Erythrocyte Sedimentation Rate 2 MM/HR (0-15)
== END 2023-10-07 11:16 | disposition home or self-care (01) ==
LOC: HO.LAB 11:15
PROVIDERS: Visit Provider Student in an Organized Health Care Education/Training Program
DX: L40.50 Arthropathic psoriasis, unspecified (principal)
CPT/HCPCS: 36415; 80053; 85025; 85652; 86140

== ENCOUNTER 2023-10-13 15:20 | Outpatient (AMB) | payer MEDICARE, SELFPAY ==
--- NOTE | 2023-10-13 15:26 | A.OFFVIS_ITS ---
Intake Vital Signs 10/13/23 15:30 Height 5 ft 9 in Weight 161 lb 13.109 oz BMI 23.9 BP 140/72 H Blood Pressure Location Rt brachial Position Sitting Pulse 70 Pulse Source Pulse Oximeter Pulse Oximetry (%) 98 Oxygen Delivery Method Room Air Intake Visit Reasons: PsA/LVM Intake Note: Patient last seen 07/08/23 presents today for follow up and test results. Reports he started Otezla, tolerating well. 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 Started Otezla regularly about 3 months ago. Overall he feels less stiff and less joint pains overall. Left wrist pain significantly improved. Right toe swelling significantly improved. Continues to have intermittent right knee pain, he is having left shoulder pain today that he attributes to skiing yesterday. Psoriasis patches about the same on his right leg. Continues to take naproxen 500 mg daily States that Otezla will constant approximately 3300 dollars this year Previous history by Dr. Gilliam: The patient presents for evaluation of his joint pains and psoriasis. He continues to get intermittent knee pain. More recently this has been over the patellar tendons bilaterally. He is on some physical therapy for now but seems to say that when he does the exercises he feels a bit worse. He has not noticed any recent swelling in the knees. Occasionally there has been some left posterior knee pain. He also notes enlargement at the right sternoclavicular joint. This is occasionally uncomfortable. He gets occasional patches of scaly skin that he treats with a topical agent but for the most point there is very minimal psoriasis. He does not have any back or neck pains. He definitely wants to get back to skiing during the winter so was concerned about his functioning. He does take naproxen 500 mg twice a day which he thinks is quite helpful. He is on medications for blood pressure control as well. I have been concerned about his borderline elevated creatinine but it seems to have been relatively stable in the last year or 2. [facility] Medical History Seborrheic keratosis Hypertension Psoriatic arthritis Surgical History History of excision of mass History of appendectomy History of wisdom tooth extraction Family History Paternal Grandmother History of cancer Social History Alcohol intake: current Alcohol intake frequency: a few times a month Alcohol type: beer Patient Tobacco Use Status: Never used Tobacco e-Cigarette/Vaping Use: Never Used Review of Systems [facility] [place] Reports arthralgias Skin/Breast Reports rash Physical Exam Vital Signs: Last Vital Signs Pulse 70 10/13/23 15:30 BP 140/72 H 10/13/23 15:30 Pulse Ox 98 10/13/23 15:30 Oxygen Delivery Method Room Air 10/13/23 15:30 BMI result Body Mass Index 23.9 Const General: cooperative, healthy appearing and comfortable Nutritional Appearance: average body habitus Orientation/consciousness: patient oriented x3 Limitations: no limitations HEENT Head: Yes normocephalic and Yes atraumatic Resp Effort & Inspection: normal respiratory effort and able to speak in complete sentences Cardio Rate: regular rate Rhythm: regular rhythm GI Inspection: No distended Palpation (GI): Soft to palpation Skin Other: Tiny psoriasis patches on right calf Neuro General: patient oriented x3 Extrem Other: Left wrist swelling resolved, no pain with flexion and extension Normal range of motion of both shoulders with negative rotator cuff provocative maneuvers bilaterally No active synovitis otherwise of both upper extremities Negative straight leg raise test bilaterally Negative Fabere test bilaterally Few nail pitting Right foot bunion No dactylitis today Assessment & Plan Assessment & Plan (1) Psoriatic arthritis: Comment: PSO dx in his 40s PsA dx in his 50s LEF in his 50s for 2-3 years developed 1 yearly episode of walking pneumonia. Did not recur when LEF was discontinued. Has been managing with naproxen since then Otezla 06/2023 effective Code(s): L40.50 - Arthropathic psoriasis, unspecified Plan: 68-year-old male with psoriasis and psoriatic arthritis returns for follow-up. Otezla started 3 months ago. On exam today synovitis affecting left wrist and right 4th toe dactylitis has resolved. Inflammatory markers normalized. Doing much better on Otezla. Continues to take naproxen 500 mg daily. Today we had a long discussion about psoriatic arthritis versus degenerative arthritis. Patient would like to reduced his naproxen as much as possible Advised patient to try taking naproxen 250 mg daily instead of the 500 mg daily for a few weeks then stop naproxen altogether Continue with Otezla 30 mg Twice daily Labs before next visit in 4 months (2) Psoriasis: Code(s): L40.9 - Psoriasis, unspecified Plan: On exam patient has less psoriasis patches, he states however that his psoriasis rash is about the same. States that he has light box and will use it before the summer, continue to use topical cream (3) Encntr long-term NSAID use: Code(s): Z79.1 - terminal carman (current) use of non-steroidal anti-inflammatories (NSAID) Plan: Discussed long-term side effects of NSAIDs including nephro, GI and cardiac toxicity. Check labs periodically to evaluate kidney function Plan I spent 30 minutes reviewing patient's chart, evaluating patient, ordering diagnostic workup, counseling patient and documenting in the chart Orders: Orders Complete Blood Count Auto Diff 4 Months L40.50 - Arthropathic psoriasis, unspecified Comprehensive Met. Panel 4 Months L40.50 - Arthropathic psoriasis, unspecified C Reactive Protein 4 Months L40.50 - Arthropathic psoriasis, unspecified Erythrocyte Sedimentation Rate 4 Months L40.50 - Arthropathic psoriasis, unspecified Medications: New naproxen 250 mg PO DAILY PRN 30 tabs 1RF pain Coding Level of Care Code Est Pt Level 4 (00360) Diagnoses Psoriatic arthritis L40.50 Psoriasis L40.9 Encntr long-term NSAID use Z79.1
[2023-10-13 15:30] VITALS: BP 140/72; PULSE 70; O2SAT 98; BMI 23.9
== END 2023-10-13 16:02 | disposition home or self-care (01) ==
PROVIDERS: PCP Student in an Organized Health Care Education/Training Program; Visit Provider Student in an Organized Health Care Education/Training Program
DX: L40.50 Arthropathic psoriasis, unspecified (principal); L40.9 Psoriasis, unspecified; Z79.1 Long term (current) use of non-steroidal anti-inflammatories (NSAID)
CPT/HCPCS: 99214

== ENCOUNTER → 2023-10-13 15:20 | Outpatient (BNVA) | payer MEDICARE, SELFPAY | PROVIDERS: PCP Student in an Organized Health Care Education/Training Program; Visit Provider Student in an Organized Health Care Education/Training Program | DX: L40.50 Arthropathic psoriasis, unspecified (principal); M25.512 Pain in left shoulder; M25.569 Pain in unspecified knee; Z79.1 Long term (current) use of non-steroidal anti-inflammatories (NSAID) | CPT/HCPCS: 99212 ==

== ENCOUNTER 2024-05-17 14:43 | Outpatient (REF) | payer MEDICARE, SELFPAY ==
[2024-05-17 14:58] LABS: MANUAL DIFF FLAG NO
[2024-05-17 15:05] LABS: Basophils Absolute Auto 0.1 X10*3/uL (0.0-0.2); Basophils Percent Auto 0.6 % (0-2); Eosinophils Absolute Auto 0.3 X10*3/uL (0.0-0.4); Eosinophils Percent Auto 3.2 % (0-4); Imm Gran Abs Auto 0.03 X10*3/uL (0.00-0.03); Imm Gran Pct Auto 0.4 % (0.0-0.4); Lymphocytes Absolute Auto 1.4 X10*3/uL (1.2-4.9); Lymphocytes Percent Auto 17.1 % (20-40); Mean Corpuscular HGB Conc 33.3 g/dl (31.0-36.0); Mean Corpuscular Hemoglobin 29.6 pg (27.0-33.0); Mean Corpuscular Volume 88.8 fL (80.0-98.0); Mean Platelet Volume 9.9 fL (9.4-12.4); Monocytes Absolute Auto 0.6 X10*3/uL (0.1-1.2); Monocytes Percent Auto 7.4 % (2-11); Neutrophils Absolute Auto 5.9 x10*3/uL (2.0-8.3); Neutrophils Percent Auto 71.3 % (45-73); Platelet Count 302 X10*3/uL (160-400); Red Blood Count 5.07 X10*6/uL (4.60-5.80); Red Cell Distribution Width 12.7 % (11.0-16.0); White Blood Count 8.2 X10*3/uL (4.8-10.8)
[2024-05-17 16:06] LABS: Erythrocyte Sedimentation Rate 2 MM/HR (0-15)
[2024-05-17 16:53] LABS: Alanine Aminotransferase 34 U/L (0-40); Albumin Level 4.4 g/dL (3.5-5.0); Alkaline Phosphatase 68 U/L (39-117); Anion Gap 12 (12-20); Aspartate Amino Transferase 27 U/L (5-37); Bilirubin Total 0.5 mg/dL (0.0-1.0); Blood Urea Nitrogen 20 mg/dL (9-16); C Reactive Protein 0.25 mg/dL (< or = 0.50); Calcium 9.6 mg/dL (8.4-10.2); Carbon Dioxide 29 mmol/L (22-29); Chloride 104 mmol/L (96-108); Estimated Glomerular Filt Rate 56; Glucose Random 102 mg/dL (60-115); Potassium 5.1 mmol/L (3.3-5.1); Sodium 140 mmol/L (135-145); Total Protein 7.2 g/dL (6.5-8.0)
== END 2024-05-17 14:44 | disposition home or self-care (01) ==
LOC: HO.LAB 14:43
PROVIDERS: PCP Student in an Organized Health Care Education/Training Program; Visit Provider Student in an Organized Health Care Education/Training Program
DX: L40.50 Arthropathic psoriasis, unspecified (principal)
CPT/HCPCS: 36415; 80053; 85025; 85652; 86140

== ENCOUNTER 2024-05-22 14:48 | Outpatient (REF) | payer MEDICARE, SELFPAY | END 2024-05-22 14:49 | disposition home or self-care (01) | LOC: HO.XRAY 14:48 | PROVIDERS: PCP Student in an Organized Health Care Education/Training Program; Visit Provider Student in an Organized Health Care Education/Training Program | DX: M25.512 Pain in left shoulder (principal); M67.922 Unspecified disorder of synovium and tendon, left upper arm; S46.002A Unspecified injury of muscle(s) and tendon(s) of the rotator cuff of left shoulder, initial encounter; L40.50 Arthropathic psoriasis, unspecified; L40.9 Psoriasis, unspecified; Z79.1 Long term (current) use of non-steroidal anti-inflammatories (NSAID) | CPT/HCPCS: 73030; 99212 ==

== ENCOUNTER 2024-05-22 14:48 | Outpatient (AMB) | payer MEDICARE, SELFPAY ==
--- NOTE | 2024-05-22 14:50 | A.OFFVIS_ITS ---
Vital Signs 05/22/24 14:54 Height 5 ft 9 in Weight 159 lb 9.835 oz BMI 23.6 BP 116/62 Blood Pressure Location Rt brachial Position Sitting Pulse 78 Pulse Source Pulse Oximeter Pulse Oximetry (%) 98 Oxygen Delivery Method Room Air Intake Visit Reasons: PSA/CM Intake Note: Patient presents for PsA. Allergies No Known Allergies [No Known Allergies*] Allergy (Verified 05/22/24 14:52) Medication List - Last Reconciled 05/22/24 by Anat Galeas MD albuterol sulfate 90 mcg/actuation 2 puffs inhalation Q6H PRN clobetasol 0.05% 1 appl topical BID hydrochlorothiazide 12.5 mg PO DAILY lisinopril 30 mg PO DAILY naproxen 500 mg PO DAILY naproxen 250 mg PO DAILY PRN Otezla (apremilast) 30 mg PO BID NS HPI Comments Details: 68-year-old male with psoriasis and psoriatic arthritis returns for follow-up. He remains on Otezla 30 mg Twice daily. States that he has been doing quite well overall in terms of her psoriatic arthritis. Gets very rare flare-ups that are very short-lived. Does not use any NSAIDs. About a week ago while working he felt something pop in his left shoulder, this was associated with weakness and pain. He states that he believes he tore his rotator cuff of 1 of his shoulders many years ago. Psoriasis rash has been very well controlled. Previous history by Dr. Gilliam: The patient presents for evaluation of his joint pains and psoriasis. He continues to get intermittent knee pain. More recently this has been over the patellar tendons bilaterally. He is on some physical therapy for now but seems to say that when he does the exercises he feels a bit worse. He has not noticed any recent swelling in the knees. Oc casionally there has been some left posterior knee pain. He also notes enlargement at the right sternoclavicular joint. This is occasionally uncomfortable. He gets occasional patches of scaly skin that he treats with a topical agent but for the most point there is very minimal psoriasis. He does not have any back or neck pains. He definitely wants to get back to skiing during the winter so was concerned about his functioning. He does take naproxen 500 mg twice a day which he thinks is quite helpful. He is on medications for blood pressure control as well. I have been concerned about his borderline elevated creatinine but it seems to have been relatively stable in the last year or 2. [facility] Medical History Seborrheic keratosis Hypertension Psoriatic arthritis Surgical History History of excision of mass History of appendectomy History of wisdom tooth extraction Family History Paternal Grandmother History of cancer Daughter Drug overdose Social History Alcohol intake: current Alcohol intake frequency: a few times a month Alcohol type: beer Patient Tobacco Use Status: Never used Tobacco e-Cigarette/Vaping Use: Never Used Review of Systems [facility] Reports arthralgias and Reports muscle weakness Skin/Breast Denies rash Physical Exam Vital Signs: Last Vital Signs Pulse 78 05/22/24 14:54 BP 116/62 05/22/24 14:54 Pulse Ox 98 05/22/24 14:54 Oxygen Delivery Method Room Air 05/22/24 14:54 BMI result Body Mass Index 23.6 Const General: cooperative, healthy appearing and comfortable Nutritional Appearance: average body habitus Orientation/consciousness: patient oriented x3 Limitations: no limitations HEENT Head: Yes normocephalic and Yes atraumatic Resp Effort & Inspection: normal respiratory effort and able to speak in complete sentences Cardio Rate: regular rate Rhythm: regular rhythm GI Inspection: No distended Palpation (GI): Soft to palpation Skin Other: Tiny psoriasis patches on right calf Neuro General: patient oriented x3 Extrem Other: No active synovitis, both hands, wrists, elbows Normal range of motion of both shoulders with negative rotator cuff provocative maneuvers bilaterally Positive Speed's test on the left Some tenderness to palpation at the left shoulder anteriorly No active synovitis otherwise of both upper extremities Negative straight leg raise test bilaterally Negative Fabere test bilaterally Few nail pitting Right foot bunion No dactylitis today Assessment & Plan Assessment & Plan (1) Psoriatic arthritis: Comment: PSO dx in his 40s PsA dx in his 50s LEF in his 50s for 2-3 years developed 1 yearly episode of walking pneumonia. Did not recur when LEF was discontinued. Has been managing with naproxen since then Otezla 06/2023 effective Code(s): L40.50 - Arthropathic psoriasis, unspecified Category: Medical Plan: 68-year-old male with psoriasis and psoriatic arthritis returns for follow-up. On Otezla 30 mg Twice daily. Doing much better overall. Normal inflammatory markers. Does not use NSAIDs anymore. Continue with Otezla 30 mg Twice daily Labs before next visit in 6 months (2) Psoriasis: Code(s): L40.9 - Psoriasis, unspecified Category: Medical Plan: Much better controlled on Otezla. Minimal psoriasis patches (3) Encntr long-term NSAID use: Code(s): Z79.1 - senior living (current) use of non-steroidal anti-inflammatories (NSAID) Category: Medical Plan: Patient now discontinued naproxen since he has been on Otezla regularly. (4) Pain in left shoulder: Code(s): M25.512 - Pain in left shoulder Category: Medical Qualifiers: Chronicity: acute Qualified Code(s): M25.512 - Pain in left shoulder Plan: Patient heard left shoulder pop about a week ago while working. Will order left shoulder x-ray and physical therapy as well as left shoulder MRI to rule out internal derangement Plan I spent 22 minutes reviewing patient's chart, evaluating patient, ordering diagnostic workup, counseling patient and documenting in the chart Orders: Orders PT Evaluation and Treatment Today M67.922 - Unspecified disorder of synovium and tendon, left upper arm, S46.002A - Unspecified injury of muscle(s) and tendon(s) of the rotator cuff of left shoulder, initial encounter MR shoulder LT wo con Today M24.812 - Other specific joint derangements of left shoulder, not elsewhere classified Comprehensive Met. 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 (current) use of non-steroidal anti-inflammatories (NSAID) C Reactive Protein 6 Months L40.50 - Arthropathic psoriasis, unspecified, Z79.1 - continuous churn buttermaker (current) use of non-steroidal anti-inflammatories (NSAID) Erythrocyte Sedimentation Rate 6 Months L40.50 - Arthropathic psoriasis, unspecified, Z79.1 - senior living (current) use of non-steroidal anti- inflammatories (NSAID) XR shoulder LT min 2V Today M25.512 - Pain in left shoulder Complete Blood Count Auto Diff 6 Months L40.50 - Arthropathic psoriasis, unspecified, Z79.1 - senior living (current) use of non-steroidal anti- inflammatories (NSAID) Coding Level of Care Code Est Pt Level 4 (36794) Diagnoses Psoriatic arthritis L40.50 Psoriasis L40.9 Encntr long-term NSAID use Z79.1 Acute pain of left shoulder M25.512 Chronicity: acute
[2024-05-22 14:54] VITALS: BP 116/62; PULSE 78; O2SAT 98; BMI 23.6
== END 2024-05-22 15:34 | disposition home or self-care (01) ==
LOC: HO.RHE 14:49
PROVIDERS: PCP Student in an Organized Health Care Education/Training Program; Visit Provider Student in an Organized Health Care Education/Training Program
DX: L40.50 Arthropathic psoriasis, unspecified (principal); L40.9 Psoriasis, unspecified; Z79.1 Long term (current) use of non-steroidal anti-inflammatories (NSAID); M25.512 Pain in left shoulder
CPT/HCPCS: 99214

== ENCOUNTER 2024-11-21 13:37 | Outpatient (REF) | payer OTHER, SELFPAY ==
[2024-11-21 13:46] LABS: MANUAL DIFF FLAG NO
[2024-11-21 14:10] LABS: Basophils Absolute Auto 0.1 X10*3/uL (0.0-0.2); Basophils Percent Auto 0.7 % (0-2); Eosinophils Absolute Auto 0.2 X10*3/uL (0.0-0.4); Eosinophils Percent Auto 2.5 % (0-4); Hematocrit 41.6 % (42.0-52.0); Imm Gran Abs Auto 0.02 X10*3/uL (0.00-0.03); Imm Gran Pct Auto 0.3 % (0.0-0.4); Lymphocytes Absolute Auto 1.5 X10*3/uL (1.2-4.9); Lymphocytes Percent Auto 22.4 % (20-40); Mean Corpuscular HGB Conc 33.7 g/dl (31.0-36.0); Mean Corpuscular Hemoglobin 29.5 pg (27.0-33.0); Mean Corpuscular Volume 87.8 fL (80.0-98.0); Mean Platelet Volume 10.2 fL (9.4-12.4); Monocytes Absolute Auto 0.6 X10*3/uL (0.1-1.2); Monocytes Percent Auto 8.9 % (2-11); Neutrophils Absolute Auto 4.5 x10*3/uL (2.0-8.3); Neutrophils Percent Auto 65.2 % (45-73); Platelet Count 279 X10*3/uL (160-400); Red Blood Count 4.74 X10*6/uL (4.60-5.80); Red Cell Distribution Width 12.6 % (11.0-16.0); White Blood Count 6.8 X10*3/uL (4.8-10.8)
[2024-11-21 14:50] LABS: Erythrocyte Sedimentation Rate 4 MM/HR (0-15)
[2024-11-21 18:07] LABS: Alanine Aminotransferase 31 U/L (0-40); Albumin Level 4.3 g/dL (3.5-5.0); Alkaline Phosphatase 58 U/L (39-117); Anion Gap 13 (12-20); Aspartate Amino Transferase 41 U/L (5-37); Bilirubin Total 0.6 mg/dL (0.0-1.0); Blood Urea Nitrogen 26 mg/dL (9-16); C Reactive Protein 0.51 mg/dL (< or = 0.50); Calcium 9.4 mg/dL (8.4-10.2); Carbon Dioxide 28 mmol/L (22-29); Chloride 104 mmol/L (96-108); Estimated Glomerular Filt Rate > 60; Glucose Random 98 mg/dL (60-115); Potassium 4.5 mmol/L (3.3-5.1); Sodium 140 mmol/L (135-145); Total Protein 6.7 g/dL (6.5-8.0)
== END 2024-11-21 13:38 | disposition home or self-care (01) ==
LOC: HO.LAB 13:37
PROVIDERS: PCP Student in an Organized Health Care Education/Training Program; Visit Provider Student in an Organized Health Care Education/Training Program
DX: L40.50 Arthropathic psoriasis, unspecified (principal); Z79.1 Long term (current) use of non-steroidal anti-inflammatories (NSAID)
CPT/HCPCS: 36415; 80053; 85025; 85652; 86140

== ENCOUNTER 2024-11-22 12:19 | Outpatient (AMB) | payer OTHER, SELFPAY ==
--- NOTE | 2024-11-22 12:35 | A.OFFVIS_ITS ---
Vital Signs 11/22/24 12:46 Height 5 ft 9 in Weight 161 lb 2.526 oz BMI 23.8 BP 130/80 Blood Pressure Location Lt brachial Position Sitting Pulse 66 Pulse Source Pulse Oximeter Pulse Oximetry (%) 99 Oxygen Delivery Method Room Air Intake Visit Reasons: PSA Intake Note: Patient presents for PsA follow up. Allergies No Known Allergies [No Known Allergies*] Allergy (Verified 11/22/24 12:43) Medication List - Last Reconciled 11/22/24 by Mariama Plaza MD albuterol sulfate 90 mcg/actuation 2 puffs inhalation Q6H PRN clobetasol 0.05% 1 appl topical BID hydrochlorothiazide 12.5 mg PO DAILY lisinopril 30 mg PO DAILY Otezla (apremilast) 30 mg PO BID NS HPI Comments Details: Patient is a 69-year-old male with asthma, hypertension and psoriasis complicated by psoriatic arthritis here today for follow up Interval History: Patient last seen 05/22/[address] Galeas. At that time he was following up for psoriasis and psoriatic arthritis on Otezla 30 mg twice daily. Doing well in terms of his psoriasis and psoriatic arthritis. Was complaining of left shoulder pain with weakness to his hand. X-rays did not reveal anything and an MRI was ordered however insurance denied the claim and he was sent to Orthopedics for further evaluation. Patient follow up with ortho and was told that he has a severe tear in the rotator cuff of his left shoulder which will require surgery Otherwise, with respect to his PsO still has a few small plaques on his legs but they respond to sun exposure and topical treatments Rheumatologic History: PSO dx in his 40s PsA dx in his 50s LEF in his 50s for 2-3 years developed 1 yearly episode of walking pneumonia. Did not recur when LEF was discontinued. Has been managing with naproxen since then Otezla 06/2023 effective Previous history by Dr. Gilliam: The patient presents for evaluation of his joint pains and psoriasis. He continues to get intermittent knee pain. More recently this has been over the patellar tendons bilaterally. He is on some physical therapy for now but seems to say that when he does the exercises he feels a bit worse. He has not noticed any recent swelling in the knees. Occasionally there has been some left posterior knee pain. He also notes enlargement at the right sternoclavicular joint. This is occasionally uncomfortable. He gets occasional patches of scaly skin that he treats with a topical agent but for the most point there is very minimal psoriasis. He does not have any back or neck pains. He definitely wants to get back to skiing during the winter so was concerned about his functioning. He does take naproxen 500 mg twice a day which he thinks is quite helpful. He is on medications for blood pressure control as well. I have been concerned about his borderline elevated creatinine but it seems to have been relatively stable in the last year or 2. Current Rheumatology Medication(s): Otezla 30mg bid [facility] Medical History Seborrheic keratosis Hypertension Psoriatic arthritis Surgical History History of excision of mass History of appendectomy History of wisdom tooth extraction Family History Paternal Grandmother History of cancer Daughter Drug overdose Social History Alcohol intake: current Alcohol intake frequency: a few times a month Alcohol type: beer Patient Tobacco Use Status: Never used Tobacco e-Cigarette/Vaping Use: Never Used Review of Systems Const Details: Review of Systems Constitutional: Denies fever, chills, weight loss ENT: Denies vision changes, eye pain or eye redness, dental caries, dry mouth GI: Denies nausea, vomiting, diarrhea, abdominal pain, change in BM Pulm: Denies SOB, IGNACIO, hemoptysis, wheezing Cards: Denies chest pain, palpitations Skin: Denies Raynaud's, rash, nail changes, photosensitivity, COUNSELING PSYCHOLOGIST: Denies headaches, weakness, paresthesias, recurrent falls MSK: as per HPI All other systems reviewed and are unremarkable except noted above Physical Exam Vital Signs: Last Vital Signs Pulse 66 11/22/24 12:46 BP 130/80 11/22/24 12:46 Pulse Ox 99 11/22/24 12:46 Oxygen Delivery Method Room Air 11/22/24 12:46 BMI result Body Mass Index 23.8 Vital signs reviewed Physical Examination CONSTITUITIONAL Patient alert and cooperative. Well appearing and in no apparent painful distress HEENT Conjunctiva and sclera clear. ?Pupils equal round and reactive to light. ?No lymphadenopathy. ? CHEST/RESPIRATORY SYSTEM Normal respiratory effort and able to speak in complete sentences. ?Clear to auscultation bilaterally. ?No crackles, rales, rhonchi, wheezes heard. CARDIAC SYSTEM Regular rate and rhythm. ?S1 and S2 heard no murmurs. ?Radial pulses intact bilaterally MSK Hands: ?Able to make a fist. No synovitis noted to the MCPs, PIPs or DIPs. ?No tenderness to palpation of these joints. No deformities noted. ? Wrists: ?Full range of motion at the wrists without pain. ?No tenderness to palpation or synovitis noted to the wrists. Elbows: Full range of motion without pain. No tenderness, weakness, swelling, increased warmth or erythema. Shoulders: Full range of active range of motion without pain: abduction/adduction. No tenderness, weakness, swelling, increased warmth or erythema. Knees: ?Full range of motion. ?No tenderness, swelling, increased warmth or erythema.?No effusion or crepitations Ankles: Full range of motion. ?No tenderness, swelling, increased warmth or erythema.? Feet: ?Negative squeeze test. ?No tenderness to palpation or swelling of the MTPs. Tender points:?No tenderness to palpation of the bilateral trapezius, supraspinatus, greater trochanters, anterior costochondral junctions, bilateral gluteal areas, bilateral suboccipital muscle insertions SKIN Skin intact without rashes. Results Reviewed Results Reviewed: Laboratory Tests 05/17/24 11/21/24 14:56 13:45 WBC 6.8 RBC 4.74 Hgb 14.0 Hct 41.6 L Plt Count 279 ESR 4 Sodium 140 Potassium 4.5 Chloride 104 Carbon Dioxide 28 BUN 26 H Creatinine 1.13 AST 41 H ALT 31 Alkaline Phosphatase 58 C-Reactive Protein 0.25 0.51 H Assessment & Plan Assessment & Plan (1) Psoriatic arthritis: Comment: PSO dx in his 40s PsA dx in his 50s LEF in his 50s for 2-3 years developed 1 yearly episode of walking pneumonia. Did not recur when LEF was discontinued. Has been managing with naproxen since then Otemmy 06/2023 effective Code(s): L40.50 - Arthropathic psoriasis, unspecified Category: Medical Plan: #PsO/PsA Patient is a 69-year-old male with psoriasis complicated by psoriatic arthritis here today for follow up. Currently in remission on Otezla 30 mg b.i.d.. Plan - Otezla 30mg bid - RTC 4 months - Labs before visit: CBC, CMP, ESR, CRP (2) Transaminitis: Code(s): R74.01 - Elevation of levels of liver transaminase levels Plan: #Mild transaminitis Patient with mild transaminitis Discussed monitoring tylenol, OTC NSAID and fatty food intake (3) Long-term current use of apremilast: Code(s): Z79.61 - intermodal dispatcher (current) use of immunomodulator Plan: #Long-term Current Use of Apremilast Risks and benefits of Apremilast in the management of psoriatic arthritis and psoriasis discussed with the patient. Benefits include decreased joint pain and morbidity Risks include GI upset including diarrhea, hypersensitivity reactions, significant weight loss, symptoms of depression Plan I spent 32 minutes reviewing the record and labs, taking a history, examining the patient, discussing the treatment plan, ordering diagnostic work up and documenting in the medical record Orders: Orders Complete Blood Count Auto Diff 4 Months L40.50 - Arthropathic psoriasis, unspecified C Reactive Protein 4 Months L40.50 - Arthropathic psoriasis, unspecified Erythrocyte Sedimentation Rate 4 Months L40.50 - Arthropathic psoriasis, unspecified Comprehensive Met. Panel 4 Months L40.50 - Arthropathic psoriasis, unspecified Medications: Refilled Otezla (apremilast) 30 mg PO BID 60 tabs 4RF NS L40.50 - Arthropathic psoriasis, unspecified Coding Level of Care Code Est Pt Level 4 (62976) Complex EM visit Add On G2211 Diagnoses Psoriatic arthritis L40.50 Transaminitis R74.01 Long-term current use of apremilast Z79.61
[2024-11-22 12:46] VITALS: BP 130/80; PULSE 66; O2SAT 99; BMI 23.8
--- OUTSIDE RECORDS SUMMARY | 2024-11-22 13:31 | XMS_ITS | Data Portability ---
Author Organization [facility], , [facility] Address [address] [place] [address] Assessment No assessment recorded. Plan of Treatment Reminders Order Date Submit Date Provider Last Modified By Organization Details Last Modified Time Details Appointments None record ed. Lab None record ed. Referral None record ed. Procedures None record ed. Surgeries None record ed. Imaging None record ed. Medication Orders None record ed. Patient TargetsNo targets recorded. Patient Instructions Encounter Date Encounter Id Patient Instructions Last Modified By Organization Details Last Modified Time 11/21/2015 [id number] glasses rx given , pt prefers close reading WD, ocular health wnl OU, RTC 2 yrs CEE or prn jmandile Not available 11/21/2015 15:46:35 Reason for Referral None Reported. Results Created Date Observation Date Name Description Value Unit Range Abnormal Flag Note LastModifiedBy Organization Detail LastModifiedTime Result Notes None recorded. Problems Name Problem SNOMED Code Status Onset Date Resolution Date Notes Provider Name and Address Organization Details Recorded Time Internal hemorrhoids 48405198 Completed 200706/07/2013 Not Available [facility] 3 02:03:12 Problem Notes None recorded. Procedures Surgical History Date Name Laterality Status Provider Name and Address Organization Details Recorded Time 01/14/20 18 Cara - EGD completed Atilio Marroquin MD [address] [place] [address], [phone], [facility] 01/13/2018 11:39:12 01/14/20 18 Cara - Colonoscopy completed Atilio Marroquin MD [address] [place] [address], [phone], [facility] 01/13/2018 11:39:53 11/21/19 16 Refraction completed Chandrika Bruno [facility] 11/21/2015 15:17:21 01/27/20 08 completed Not Available [facility] 06:05:52 Imaging Results None recorded. Procedure Notes None recorded. Medical Equipment None Reported. Allergies No known drug allergies Medications Name Sig Start Date Stop Date Status Note LastModified by Organization Details LastModified Time leflunomide 20 mg tablet active Not Available Not Available Not Available triamcinolone acetonide 0.1 % topical cream active Not Available Not Availabl e Not Available oxycodone-acetamino phen 5 mg-325 mg tablet active Not Available Not Available Not Available tamsulosin 0.4 mg capsule active Not Available Not Available Not Available Gentle Laxative (bisacodyl) 5 mg tablet,delayed release active Not Available Not Available Not Available lisinopril 10 mg tablet active Not Available Not Available Not Available omeprazole 20 mg capsule,delayed release active Not Available Not Available Not Available hydrochlorothiazide 25 mg tablet active Not Available Not Available Not Available lisinopril 10 mg-hydrochlorothiaz meño 12.5 mg tablet active Not Available Not Dali ilable Not Available ondansetron 4 mg disintegrating tablet active Not Available Not Available Not Available naproxen 500 mg tablet active Not Available Not Available Not Available amoxicillin 875 mg-potassium clavulanate 125 mg tablet active Not Available Not Available Not Available Flovent HFA 110 mcg/actuation aerosol inhaler active Not Available Not Availa ble Not Available ProAir HFA 90 mcg/actuation aerosol inhaler active Not Available Not Availa ble Not Available GaviLyte-G 236 gram-22.74 gram-6.74 gram-5.86 gram oral solution active Not Available Not Dali ilable Not Available Vitals None Recorded Social History None recorded. Functional Status None recorded. Mental Status None recorded. Family History Nothing Reported. Medical History No medical history recorded. Past Encounters Encounter ID Performer Location Encounter Start Date Encounter Closed Date Diagnosis/Indication Diagnosis SNOMED-CT Code Diagnosis ICD10 Code Diagnosis Note [id number] BRYON RAMÍREZ MD [facility], [address] [address] 01/27/2008 08:46:39 01/30/2008 07:30:59 [id number] Ai Messer OD [facility], [facility] [address] [place] [address] 11/21/2015 14:42:48 11/21/2015 15:54:32 Myopia 73674536 H52.13 Astigmatism 17291023 H52 .203 Presbyopia 07045759 H52. 4 [id number] Atilio Marroquin MD [facility], [address] [address] 01/13/2018 09:59:54 01/14/2018 07:12:59 Health Concerns Section Related Observation LastModified by Organization Detai ls LastModified Time None Recorded Concern Status LastModified by Organization Details LastModified Time None Recorded Advance Directives Directive None Recorded Payers Encounter Date Sequence Insurance Name Policy Number Policy Kuo Covered Member ID Kuo Member ID Guarantor Name 01/27/2008 1 [facility] [employer] (HMO) [id number] Shorty Forbes [id number] Germán Forbes 11/21/2015 1 [facility] Eloina Forbes [id number] Germán Forbes 01/13/2018 1 [employer] (PPO) [id number] Eloina Forbes [id number] Germán Forbes
== END 2024-11-22 13:13 | disposition home or self-care (01) ==
LOC: HO.RHE 12:19
PROVIDERS: PCP Student in an Organized Health Care Education/Training Program; Visit Provider Student in an Organized Health Care Education/Training Program
DX: L40.50 Arthropathic psoriasis, unspecified (principal); R74.01 Elevation of levels of liver transaminase levels; Z79.61 Long term (current) use of immunomodulator
CPT/HCPCS: 99214; G2211

== ENCOUNTER → 2024-11-22 12:19 | Outpatient (BNVA) | payer OTHER, SELFPAY | PROVIDERS: PCP Student in an Organized Health Care Education/Training Program; Visit Provider Student in an Organized Health Care Education/Training Program ==

== ENCOUNTER 2025-03-28 12:23 | Outpatient (AMB) | payer OTHER, SELFPAY ==
--- NOTE | 2025-03-28 12:31 | A.OFFVIS_ITS ---
Vital Signs 03/28/25 12:35 Height 5 ft 9 in Weight 155 lb 13.869 oz BMI 23.0 BP 130/80 Blood Pressure Location Rt brachial Position Sitting Pulse 71 Pulse Source Pulse Oximeter Pulse Oximetry (%) 98 Oxygen Delivery Method Room Air Intake Visit Reasons: f/u PsA Intake Note: Patient presents for PsA follow up. Allergies No Known Allergies (No Known Allergies*) Allergy (Verified 03/28/25 12:35) HPI Comments Details: Patient is a 69-year-old male with asthma, hypertension and psoriasis complicated by psoriatic arthritis here today for follow up Interval History: Patient last seen 11/22/24 with me - On Otezla 30mg bid - Has a severe tear in the rotator cuff of his left shoulder which will require surgery - With respect to his PsO still has a few small plaques on his legs but they respond to sun exposure and topical treatments Today - On Otezla 30mg bid - Had left shoulder rotator cuff surgery 7 weeks ago - Also had an exploratory abdominal surgery for bowel obstruction with adhesions - Doing well with respect to his arthritis Rheumatologic History: PSO dx in his 40s PsA dx in his 50s LEF in his 50s for 2-3 years developed 1 yearly episode of walking pneumonia. Did not recur when LEF was discontinued. Has been managing with naproxen since then Otezla 06/2023 effective Previous history by Dr. Gilliam: The patient presents for evaluation of his joint pains and psoriasis. He continues to get intermittent knee pain. More recently this has been over the patellar tendons bilaterally. He is on some physical therapy for now but seems to say that when he does the exercises he feels a bit worse. He has not noticed any recent swelling in the knees. Occasionally there has been some left posterior knee pain. He also notes enlargement at the right sternoclavicular joint. This is occasionally uncomfortable. He gets occasional patches of scaly skin that he treats with a topical agent but for the most point there is very minimal psoriasis. He does not have any back or neck pains. He definitely wants to get back to skiing during the winter so was concerned about his functioning. He does take naproxen 500 mg twice a day which he thinks is quite helpful. He is on medications for blood pressure control as well. I have been concerned about his borderline elevated creatinine but it seems to have been relatively stable in the last year or 2. Current Rheumatology Medication(s): Otezla 30mg bid [facility] Medical History (Updated 07/05/24 @ 13:28 by Anat Galeas MD) Seborrheic keratosis Hypertension Psoriatic arthritis Surgical History H/O abdominal surgery History of excision of mass History of appendectomy History of wisdom tooth extraction Family History Paternal Grandmother History of cancer Daughter Drug overdose Social History Alcohol intake: current Alcohol intake frequency: a few times a month Alcohol type: beer Patient Tobacco Use Status: Never used Tobacco e-Cigarette/Vaping Use: Never Used Review of Systems Const Details: Vital signs reviewed Physical Examination CONSTITUITIONAL Patient alert and cooperative. Well appearing and in no apparent painful distress MSK Hands * Right Hand: Able to make a fist. No swelling or tenderness to palpation of the MCPs, PIPs or DIPs. * Left Hand: Able to make a fist. No swelling or tenderness to palpation of the MCPs, PIPs or DIPs. * Herbedens nodes noted bilaterally Wrists * Right Wrist: Full ROM to flexion and extension. No swelling or TTP * Left Wrist: Full ROM to flexion and extension. No swelling or TTP Elbows * Right Elbow: Full ROM. No swelling or TTP. No TTP of the medial epicondyle. No TTP of the lateral epicondyle * Left Elbow: Full ROM. No swelling or TTP. No TTP of the medial epicondyle. No TTP of the lateral epicondyle Shoulders * Did not examine in the shoulder Knees * Right knee: Full ROM. No swelling noted. No TTP of the knee joint line. No TTP of pes anserine bursa * Left knee: Full ROM. No swelling noted. No TTP of the knee joint line. No TTP of pes anserine bursa. * Crepitations felt bilaterally Ankles * Right ankle: Good ankle dorsiflexion and plantar flexion. No swelling. No TTP of the ankle joint * Left ankle: Good ankle dorsiflexion and plantar flexion. No swelling. No TTP of the ankle joint Feet * Right foot: Negative squeeze test * Left foot: Negative squeeze test Tender points? * No tenderness to palpation of the bilateral trapezius, supraspinatus, anterior costochondral junctions, bilateral suboccipital muscle insertions SKIN No rashes Physical Exam Exam Exam: Vital signs reviewed Physical Examination CONSTITUITIONAL Patient alert and cooperative. Well appearing and in no apparent painful distress MSK Hands * Right Hand: Able to make a fist. No swelling or tenderness to palpation of the MCPs, PIPs or DIPs. No deformities noted. * Left Hand: Able to make a fist. No swelling or tenderness to palpation of the MCPs, PIPs or DIPs. No deformities noted. Wrists * Right Wrist: Full ROM to flexion and extension. No swelling or TTP * Left Wrist: Full ROM to flexion and extension. No swelling or TTP Elbows * Right Elbow: Full ROM. No swelling or TTP. No TTP of the medial epicondyle. No TTP of the lateral epicondyle * Left Elbow: Full ROM. No swelling or TTP. No TTP of the medial epicondyle. No TTP of the lateral epicondyle Shoulders * Right shoulder: Full ROM. No swelling noted. No TTP of the AC joint. No TTP of the subacromial bursa. No TTP of the posterior shoulder * Left shoulder: Full ROM. No swelling noted. No TTP of the AC joint. No TTP of the subacromial bursa. No TTP of the posterior shoulder Hips * Right hip: Good ROM. No pain elicited with hip flexion/internal rotation/external rotation * Left hip: Good ROM. No pain elicited with hip flexion/internal rotation/external rotation Hip bursa: No tenderness to palpation bilaterally Knees * Right knee: Full ROM. No swelling noted. No TTP of the knee joint line. No TTP of pes anserine bursa * Left knee: Full ROM. No swelling noted. No TTP of the knee joint line. No TTP of pes anserine bursa. Ankles * Right ankle: Good ankle dorsiflexion and plantar flexion. No swelling. No TTP of the ankle joint * Left ankle: Good ankle dorsiflexion and plantar flexion. No swelling. No TTP of the ankle joint Feet * Right foot: Negative squeeze test * Left foot: Negative squeeze test Tender points? * No tenderness to palpation of the bilateral trapezius, supraspinatus, anterior costochondral junctions, bilateral suboccipital muscle insertions SKIN No rashes Vital Signs: Last Vital Signs Pulse 71 03/28/25 12:35 BP 130/80 03/28/25 12:35 Pulse Ox 98 03/28/25 12:35 Oxygen Delivery Method Room Air 03/28/25 12:35 BMI result Body Mass Index 23.0 Results Reviewed Results Reviewed: Laboratory Tests 05/17/24 11/21/24 14:56 13:45 WBC 6.8 RBC 4.74 Hgb 14.0 Hct 41.6 L Plt Count 279 ESR 4 Sodium 140 Potassium 4.5 Chloride 104 Carbon Dioxide 28 BUN 26 H Creatinine 1.13 AST 41 H ALT 31 Alkaline Phosphatase 58 C-Reactive Protein 0.25 0.51 H Assessment & Plan Assessment & Plan (1) Psoriatic arthritis: Comment: PSO dx in his 40s PsA dx in his 50s LEF in his 50s for 2-3 years developed 1 yearly episode of walking pneumonia. Did not recur when LEF was discontinued. Has been managing with naproxen since then Otezla 06/2023 effective Code(s): L40.50 - Arthropathic psoriasis, unspecified Category: Medical Plan: #PsO/PsA Patient is a 69-year-old male with psoriasis complicated by psoriatic arthritis here today for follow up. Currently in remission on Otezla 30 mg b.i.d.. Plan - Otezla 30mg bid - RTC 6 months - Labs before visit: CBC, CMP, ESR, CRP (2) Transaminitis: Code(s): R74.01 - Elevation of levels of liver transaminase levels Plan: #Mild transaminitis Patient with mild transaminitis Discussed monitoring tylenol, OTC NSAID and fatty food intake (3) Long-term current use of apremilast: Code(s): Z79.61 - intermediate designer (current) use of immunomodulator Plan: #Long-term Current Use of Apremilast Risks and benefits of Apremilast in the management of psoriatic arthritis and psoriasis discussed with the patient. Benefits include decreased joint pain and morbidity Risks include GI upset including diarrhea, hypersensitivity reactions, significant weight loss, symptoms of depression Plan I spent 30 minutes reviewing the record and labs, taking a history, examining the patient, discussing the treatment plan, ordering diagnostic work up and documenting in the medical record Coding Level of Care Code Est Pt Level 4 (45565) Complex EM visit Add On G2211 Diagnoses Psoriatic arthritis L40.50 Transaminitis R74.01 Long-term current use of apremilast Z79.61
[2025-03-28 12:35] VITALS: BP 130/80; PULSE 71; O2SAT 98; BMI 23.0
--- OUTSIDE RECORDS SUMMARY | 2025-03-28 15:24 | XMS_ITS | Encounter Summary ---
Author Organization [facility] Address [address] [place] [address] [place] [phone] Phone Care Team Providers Care Health And Human Performance Professor Name Role Phone Iker Pierre MD Unavailable Damir Orlando MD Unavailable Marilyn William TOYS AND GAMES HAND FINISHER Unavailable [phone] Vipin Madsen DO Unavailable Majo Rose TOYS [employer] GAMES HAND FINISHER Unavailable [phone] Esteban Meredith MD Unavailable [email or web address] Sunil Monroe MD Unavailable Yris Vizcaino [employer] Unavailable Brent Orlando MD Unavailable [phone] Eloina Fernandes TOYS AND GAMES HAND FINISHER Unavailable Lexy Munguia MD Unavailable [phone] Damir Orlando MD Primary Care Provider [phone] Damir Orlando MD Unavailable [phone] Sharonda Caicedo MD Primary Care Provider Iwona Bustamante MD Unavailable [phone] Sharonda Caicedo MD Unavailable [phone] Encounter Details Date Type Department Care Team (Latest Contact Info) Description 04/25/2018 Transcribe Orders [facility] [address] [place] [address] Molina Kulkarni MD On license of [facility], [address] [place] [address] [email or web address] Enlarged prostate with urinary obstruction (Primary Dx) Social History Tobacco Use Types Packs/Day Years Used Date Smoking Tobacco: Never Smokeless Tobacco: Never Sex and Gender Information Value Date Recorded Sex Assigned at Male 05/27/2020 10:25 AM EST Legal Sex Male 9:52 PM EDT Gender Identity Male 05/27/2020 10:25 AM EST Sexual Orientation Straight 05/27/2020 10 :25 AM EST documented as of this encounter Plan of Treatment Upcoming Encounters Date Type Department Care Team (Late st Contact Info) Description 02/17/2025 11:59 PM EDT Anesthesia Event [facility] [address] [place] [address] Arturo Balderas MD [address] [place] [address] [email or web address] 04/18/2025 10:30 AM EDT Office Visit [address] [address] Sharonda Caicedo MD [address] [facility], [address] [place] [address] [email or web address] documented as of this encounter Procedures Procedure Name Priority Date/Time Associated Diagnosis Comments PSA (SCREENING) Routine 04/25/2018 12:25 PM EDT Enlarged prostate with urinary obstruction documented in this encounter Results * PSA (screening) (04/25/2018 12:25 PM EDT) PSA 1.43 0 - 4.00 ng/mL [facility] Blood 04/25/2018 12:2 5 PM EDT 04/25/2018 12:26 PM EDT us Molina Kulkarni MD LAB BLOOD ORDERABLES Final Resu lt [facility] [address] [place] [address] documented in this encounter Visit Diagnoses Diagnosis Enlarged prostate with urinary obstruction- Primary Hypertrophy of prostate with urinary obstruction and other lower urinary tract symptoms (LUTS) documented in this encounter Additional Health Concerns Infection Onset Date Last Indicated Resolved Time CoV-Exposed Comment:Recent close contact 07/25/2020 07/25/2020 08/08/2020 1:24 AM EST CoV-Risk Comment:Per Ambulatory Triage Form 09/10/2022 09/10/202209/10 2:22 PM EST CoV-Presumed 09/10/2022 09/10/2022 10/01/2022 1:22 AM EDT CoV-Risk Comment:Per Ambulatory Triage Form 03/06/2024 03/06/202403/17 1:22 AM EDT documented as of this encounter Care Teams Health And Human Performance Professor Relationship Specialty Start Date End Date Damir Orlando MD [address] [place] [address] [address] [place] [phone] [email or web address] PCP - General 05/20/17 08/10/21 Sharonda Caicedo MD [address] [place] [address] [address] [place] [address] [email or web address] PCP - General Family Medicine 08/11/21 Iker Pierre MD [address] [place] [address] [email or web address] Historical LMR Provider 05/09/17 07/26/21 Damir Orlando MD [address] [place] [address] [address] [place] [phone] [email or web address] Historical LMR Provider 05/09/17 Marilyn William NP [address] [place] [address] Historical LMR Provider 05/09/17 2 Vipin Madsen DO [address] [place] [address] [address] [place] [address] [email or web address] Historical LMR Provider 05/09/17 Majo Rose NP [address] [place] [address] Historical LMR Provider 05/09/17 2 Esteban Meredith MD [email or web address] Historical LMR Provider 05/09/17 Sunil Monroe MD [address] [place] [address] Historical LMR Provider 05/09/17 Yris Vizcaino FNP [address] [place] [address] [address] [place] [address] [email or web address] Historical LMR Provider 05/09/17 07/26/21 Brent Orlando MD [address] [place] [phone] [email or web address] Historical LMR Provider 05/09/17 07/26/21 Eloina Fernandes NP [address] [place] [address] Historical LMR Provider 05/09/17 Lexy Correa MD [address] [place] [address], [address] [place] [address] [email or web address] Historical LMR Provider 05/09/17 07/26/21 Damir Orlando MD [address] [place] [address] [address] [place] [phone] [email or web address] Insurance Assigned Provider 11/19/18 12/27/21 Iwona Bustamante MD [address] [place] [address], [address] [place] [address] [email or web address] Insurance Assigned Provider 12/27/21 10/24/22 Sharonda Caicedo MD [address] [place] [address], [address] [place] [address] [email or web address] Insurance Assigned Provider 11/21/22 12/26/22 documented as of this encounter Additional Source Comments The information contained in this document represents components of the legal health record. It is not the complete legal health record.[facility]
--- OUTSIDE RECORDS SUMMARY | 2025-03-28 15:24 | XMS_ITS | Encounter Summary ---
Author Organization [facility] Address [address] [place] [address] Phone Care Team Providers Care Cable Maintainer Name Role Phone Damir Orlando MD Unavailable [phone] Vipin Madsen DO Unavailable Esteban Meredith MD Unavailable [email or web address] Sharonda Caicedo MD Primary Care Provider [phone] Reason for Visit * Reason Onset Date Comments imaging 06/28/2024 Clavicle and rig ht shoudler Encounter Details Date Type Department Care Team ([facility] st Contact Info) Description 06/28/2024 Telephone [facility] [address] [place] [address] Sharonda Caicedo MD [address] [facility], [address] [place] [address] [email or web address] imaging (Clavicle and right shoudler) Social History Tobacco Use Types Packs/Day Years Used Date Smoking Tobacco: Never Smokeless Tobacco: Never Alcohol Use Standard Drinks/Week Comments Not Currently 0 (1 standard drink = 0.6 oz pur e alcohol) Child or Family Care Answer Date Record ed Do you have problems with on e of the following making it difficult for you to work, study, or receive health care? No 01/10/2023 Education Answer Date Recorded Are you interested in help w ith more adult education (for example, completing high school, GED, job training, learning the [place] language, technical skills, or developing parenting skills)? No 01/10/2023 Are you concerned about learning? Not on file 01/10/2023 No 01/10/2023 Yes 01/10/2023 Food Answer Date Recorded Within the past 6 months we worried whether our food would run out before we got money to buy more. Never True 01/10/2024 Within the past 6 months the food we bought just didn't last and we didn't have enough money to get more. Never True Residential Stability Answer Date Recor ded What is your housing situation today? I have mekhi sing 01/10/2024 How many times have you move d in the past 12 months? Zero (I did not move) 01/10/2024 Paying for Meds Answer Date Recorded Do you have trouble paying for medicines? No 01/10/2024 Paying Utility Bills Answer Date Record ed Do you have trouble paying your heating or elect ricity bill? No 01/10/2024 Transportation Answer Date Recorded Has the lack of transportati on kept you from medical appointments or from getting medications? No 01/10/2024 Unemployment Answer Date Recorded Are you currently unemployed or working on a part-time or temporary basis, and looking for work? No 01/12/2022 Digital Access Answer Date Recorded No 01/10/2024 Yes 01/10/2024 Do you have reliable internet access at home? Ye s 01/10/2024 Do you have a device (e.g., phone, tablet, computer) with a working camera? Yes 01/10/2024 Intimate Partner Violence Answer Date R ecorded Denied Basic Needs Not on file 01/10/2024 In the past 12 months have y ou been in a relationship with a person who hurts, threatens, or tries to control you? No 01/10/2024 Worried food would run out Not on file 01/09 In the past 12 months have y ou been in a relationship with a person who hurts, threatens, or tries to control you? No 01/10/2024 Sex and Gender Information Value Date Recorded Sex Assigned at Male 05/27/2020 10:25 AM EST Legal Sex Male 9:52 PM EDT Gender Identity Male 05/27/2020 10:25 AM EST Sexual Orientation Straight 05/27/2020 10 :25 AM EST documented as of this encounter Progress Notes * Sondra Randhawa [place] - 06/30/2024 12:04 PM EST Referral and past x-rays routed to fax number in encounter via epic route requisition, pended x-rayorder for provider approval * Jessica Gomez - 06/28/2024 3:43 PM EST Pt called requesting to an Xray done on right clavicle to [facility] lab that's doing pt MRI on 07/04/24 in addition to left shoulder imaging done.Also pt asked if original clavicle 04/10/23 can be sent over to the facility along with the referral to [facility] fax to [phone] contact and advise. Central Support Transformer Repairer (Please do not reply to this user; this inbox is not monitored.) Thank you. documented in this encounter Plan of Treatment Upcoming Encounters Date Type Department Care Team (Late st Contact Info) Description 02/17/2025 11:59 PM EDT Anesthesia Event [facility] [address] [place] [address] Arturo Balderas MD [address] [place] [address] 04/18/2025 10:30 AM EDT Office Visit [facility] [address] [place] [address] Sharonda Caicedo MD [address] [facility] [place] [address] documented as of this encounter Visit Diagnoses Not on filedocumented in this encounter Additional Health Concerns Assessment Noted Time PHQ-2 Depression Total Score: 1 01/10/20 10:31 AM EDT documented as of this encounter Care Teams Cable Maintainer Relationship Specialty Start Date End Date Sharonda Caicedo MD [address] [place] [address], [address] [place] [address] [email or web address] PCP - General Family Medicine 08/11/21 Damir Orlando MD [address] [place], [place] [address] [place] [address] [email or web address] Historical LMR Provider 05/09/17 Vipin Madsen DO [address] [place] [address] [address] [place] [address] [email or web address] Historical LMR Provider 05/09/17 Esteban Meredith MD [email or web address] Historical LMR Provider 05/09/17 documented as of this encounter Additional Source Comments The information contained in this document represents components of the legal health record. It is not the complete legal health record.[facility]
--- OUTSIDE RECORDS SUMMARY | 2025-03-28 15:25 | XMS_ITS | Clinical Summary ---
Author Organization [facility] Address [facility] [address] [place] [phone] Phone Care Team Providers Care Bridge Contractor Name Role Phone Damir Orlando MD Unavailable Vipin Madsen DO Unavailable Esteban Meredith MD [facility]available [email or web address] Sharonda Caicedo MD Primary Care Provider [phone] Allergies Active Allergy Reactions Criticality Noted Date Comments Cat Hair Standardized Allergenic Extract 10/05/2017 Cat's Claw (Uncaria Tomentosa) 02/15/2017 Other reaction(s): Unknown Dog Dander 11/09/2017 Dog Hair Standardized Allergenic Extract 11/09/2017 Pollen Extracts Unknown 02/15/2017 Medications albuterol 90 mcg/actuation inhaler 2 puffs as needed 01/21/20 11 Active clobetasol (TEMOVATE) 0.05 % ointment 08/11/19 21 Active desonide (DESOWEN) 0.05 % cream 04/17/20 22 Active hydroCHLOROthiaz meño 12.5 mg capsuleIndicatio ns:Essential hypertension Take 1 capsule (12.5 mg total) by mouth daily. 90 capsule 3 08/10/19 25 Active apremilast (OTEZLA) 30 mg tablet Take 1 tablet (30 mg total) by mouth 2 (two) times a day. 60 tablet 11 08/14/19 25 Active omeprazole (PRILOSEC) 20 MG tablet Take 20 mg by mouth daily. Active lisinopril (PRINIVIL,ZESTRI L) 10 MG tabletIndication s:Essential hypertension Take 2 tablets (20 mg total) by mouth daily. 270 tablet 3 01/09/20 Active dicyclomine (BENTYL) 20 mg tablet Take 1 tablet (20 mg total) by mouth every 6 (six) hours as needed (abdominal pain). 20 tablet 02/13/20 Active Additional Information Patient not taking.Reported on 02/13/2025 polyethylene glycol (MIRALAX) 17 gram packet Take 17 g by mouth daily. 20 packet 02/13/20 Active acetaminophen (TYLENOL) 325 mg tablet Take 2 tablets (650 mg total) by mouth every 6 (six) hours as needed for pain (specific location in comments). 02/20/20 Active bisacodyl (DULCOLAX) [address] 1 suppository (10 mg total) rectally daily as needed (mild constipation). 02/20/20 Active oxyCODONE 5 MG immediate release tablet Take 1 tablet (5 mg total) by mouth every 4 (four) hours as needed for pain (specific location in comments). Partial fill ok 6 tablet 02/20/20 025 Discontin ued(No longer taking) Active Problems Problem Noted Date Diagnosed Date Small bowel obstruction 02/17/2025 Assessment & Plan (02/18/2025 3:37 PM EDT): Patient is admitted with intractable abdominal pain. CT 02/12 with fluid filled small bowel loops without evidence of obstruction. Worsening abd distention, belching prompted repeat CT scan on 02/14 suggestive of distal SBO likely secondary to adhesions, general surgery consulted, NGT was placed in the ED. Gastrografin challenge 02/16 morning. Some increased bowel sounds, but no flatus or BM. 02/17-patient has had no flatus or bowel movements overnight. Repeat x-ray shows distended contrast-filled small bowel consistent with small bowel obstruction. Trace contrast in the right colon. NG tube in the distal esophagus. Seen by Dr. Panda of surgery given no progression of obstruction patient taken to the OR Single band adhesion ligated laparoscopically. Per surgery: - NG tube to be removed tomorrow then patient to advance to clears. - Further management per surgery -Pain management with opioids prn sparingly Assessment & Plan (02/17/2025 4:09 PM EDT): Patient is admitted with intractable abdominal pain. CT 02/12 with fluid filled small bowel loops without evidence of obstruction. Worsening abd distention, belching prompted repeat CT scan on 02/14 suggestive of distal SBO likely secondary to adhesions, general surgery consulted, NGT was placed in the ED. Gastrografin challenge 02/16 morning. Some increased bowel sounds, but no flatus or BM. 02/17-patient has had no flatus or bowel movements overnight. Repeat x-ray shows distended contrast-filled small bowel consistent with small bowel obstruction. Trace contrast in the right colon. NG tube in the distal esophagus. Seen by Dr. Panda of surgery. - NG tube advance 10 cm -Continue to monitor overnight if no improvement OR in a.m. for exploratory lap. - maintain NGT to intermittent wall suction - NPO except meds, ice chips -Pain management with opioids prn sparingly Intractable abdominal pain 02/13/2025 Assessment & Plan (02/18/2025 3:37 PM EDT): Pain now well-controlled. Assessment & Plan (02/17/2025 4:09 PM EDT): Pain now well-controlled. Assessment & Plan (02/16/2025 5:10 PM EDT): CT 02/12 with fluid filled small bowel loops without evidence of obstruction. Worsening abd distention, belching prompted repeat CT scan on 02/14 suggestive of distal SBO likely secondary to adhesions, general surgery consulted, NGT placement. Gastrografin challenge 02/16 morning. Some increased bowel sounds, but no flatus or BM. XR planned for 02/17 morning. - maintain NGT to intermittent wall suction - NPO except meds, ice chips - Pain management with opioids prn sparingly - appreciate general surgery consult - nutrition consult Assessment & Plan (02/15/2025 4:20 PM EDT): CT 02/12 with fluid filled small bowel loops without evidence of obstruction. If worsening GI symptoms, vomiting, consider XR abd vs repeat CT scan ,general surgery consult. Bowel rest, NPO for now Pain management with opioids - appreciate general surgery consult - ngt placed 02/15 Assessment & Plan (02/14/2025 3:06 PM EDT): CT 02/12 with fluid filled small bowel loops without evidence of obstruction. If worsening GI symptoms, vomiting, consider XR abd vs repeat CT scan ,general surgery consult. Bowel rest, NPO for now Bentyl prn Pain management with opioids Prn bowel regimen Assessment & Plan (02/13/2025 8:57 AM EDT): CT with fluid filled small bowel loops without evidence of obstruction. There is concern for worsening to obstruction. If worsening, XR abdomen to start with. Bowel rest, NPO for now Bentyl prn Pain management with opioids Prn bowel regimen Hypovolemia due to dehydration 02/13/2025 Assessment & Plan (02/18/2025 3:37 PM EDT): From decreased intake and increased output. Patient has been on IV fluids Creatinine has improved from 1.3-1.0. Continue IV fluids, fluids to be weaned off as p.o. intake improves and diet is advanced. Assessment & Plan (02/17/2025 4:09 PM EDT): From decreased intake and increased output. Creatinine has improved from 1.3-1.1. Continue IV fluids, may need bolus depending on NGT output Assessment & Plan (02/16/2025 5:10 PM EDT): From decreased intake and increased output IV fluids, may need bolus depending on NGT output Assessment & Plan (02/15/2025 4:20 PM EDT): From decreased intake and increased output IV fluids LR Assessment & Plan (02/14/2025 3:06 PM EDT): From decreased intake and increased output IV fluids LR Assessment & Plan (02/13/2025 8:57 AM EDT): From decreased intake and increased output IV fluids LR Other constipation 02/13/2025 Assessment & Plan (02/18/2025 3:37 PM EDT): Was on opioid regimen after left shoulder surgery, caused constipation. Had only 2-3 days without opioid use prior to admission. CT scan with moderate stool throughout the colon. -Surgery to address bowel regimen when safe for patient to take meds. Assessment & Plan (02/17/2025 4:09 PM EDT): Was on opioid regimen after left shoulder surgery, caused constipation. Had only 2-3 days without opioid use prior to admission. CT scan with moderate stool throughout the colon. - when bowels open, recommend bowel regimen to clean him out Assessment & Plan (02/16/2025 5:10 PM EDT): Was on opioid regimen after left shoulder surgery, caused constipation. Had only 2-3 days without opioid use prior to admission. CT scan with moderate stool throughout the colon. - when bowels open, recommend bowel regimen to clean him out Assessment & Plan (02/15/2025 4:20 PM EDT): Was on opioid regimen after left shoulder surgery, caused constipation. Had only 2-3 days without opioid use prior to admission. CT scan with moderate stool throughout the colon. Assessment & Plan (02/14/2025 3:06 PM EDT): Was on opioid regimen after left shoulder surgery, caused constipation. Had only 2-3 days without opioid use prior to admission. CT scan with moderate stool throughout the colon. Chronic left shoulder pain 08/10/2024 Assessment & Plan (08/10/2024 5:53 PM EST): Recommend get shoulder injxn via ortho Cont PT once done Chronic cough 08/10/2024 Assessment & Plan (08/10/2024 5:53 PM EST): Try two weeks of omeprazole (morning and evening, not persistent enough to consider lisinopril) Long hx of SERGIO Frequent nosebleeds 07/15/2023 Abnormal weight loss 01/13/2023 Elevated serum creatinine 01/13/2022 Assessment & Plan (01/13/2022 2:27 PM EDT): 2/2 daily NSAID use for psoriatic arthritis. Tenosynovitis of wrist 05/28/2020 Assessment & Plan (05/28/2020 9:23 AM EST): Acute tenosynovitis of the left wrist will be treated with splinting and a tapering course of steroids. He will call me in 72 hours. He will hold the naproxen while he is on prednisone and then restarted after finishing the prednisone. Should he have an inadequate response then we will do an MRI of the forearm. Nontraumatic incomplete tear of right rotator cu ff 05/16/2019 Assessment & Plan (02/18/2025 3:37 PM EDT): He had a surgical repair in the past few weeks, continue to wear arm sling. Orthopedic follow-up as per previous scheduled appointment. Assessment & Plan (02/17/2025 4:09 PM EDT): He had a surgical repair in the past few weeks, continue to wear arm sling Assessment & Plan (02/16/2025 5:10 PM EDT): He had a surgical repair in the past few weeks, continue to wear arm sling Assessment & Plan (02/15/2025 4:20 PM EDT): He had a surgical repair in the past few weeks, continue to wear arm sling Assessment & Plan (02/14/2025 2:04 PM EDT): He had a surgical repair in the past few weeks, continue to wear arm sling Assessment & Plan (02/13/2025 8:57 AM EDT): He had a surgical repair in the past few weeks, continue to wear arm sling Assessment & Plan (05/16/2019 12:18 PM EDT): Several weeks of pain and swelling in the right shoulder with an effusion and impingement. I reviewed the x-ray indicating calcific tendinitis and mild glenohumeral and acromioclavicular osteoarthritis. No erosive disease that I can see but an MRI would be helpful to rule out a complete rotator cuff tear and he will call me within the next 2 weeks if there is no improvement. Also intra-articular aspiration and cortisone injection would be helpful but I deferred that today. Previous lab work was reviewed and all was within normal limit. Transcribe Orders on 05/09/2019 Component Date Value Ref Range Status PSA 05/09/2019 1.33 0 - 4.00 ng/mL Final Neuropathy of left peroneal nerve 07/07/2018 Assessment & Plan (11/03/2018 12:50 PM EDT): Has improved substantially. He no longer has tingling and numbness. Assessment & Plan (07/07/2018 1:28 PM EST): This is most compatible with neuritis of the peroneal nerve. He is to use 0.075% capsaicin applied lightly twice daily. He will let me know how this goes and if this does not work then we will try some topical Lidoderm and if this does not work then he will have an injection of cortisone there. No evidence of lumbar radiculopathy or motor weakness. It was explained to him in detail. I reviewed with him recent lab work showing creatinine 1.1, glucose 112, alkaline phosphatase 81, AST 27, and an ALT of 17. He will have more lab work done on his next visit. Cervical radiculopathy 12/07/2017 Overview (07/21/2021): [facility] Rheumatology following. Assessment & Plan (05/16/2019 12:17 PM EDT): There has been some improvement with postural changes in physical therapy but he understands the need for an MRI and possibly EMGs and nerve conduction velocities to further work-up the cervical radiculopathy which is intermittent. Assessment & Plan (07/07/2018 1:26 PM EST): This has improved a little bit. It comes with recognition of his posture driving position and thus he has less episodes. I reviewed with him the x-ray of the cervical spine which shows multilevel severe spondylitic changes and I would imagine that an MRI likely would show several areas of lateral recess stenosis at this point in time he will redouble his efforts on his home exercise program and if he continues to stabilize then he will live around the intermittent discomfort but if it does not he will need an MRI of the cervical spine with consideration towards referral for a fluoroscopically guided cervical epidural injection. Assessment & Plan (01/11/2018 2:17 PM EDT): His right upper extremity pain is certainly radicular in nature. I strongly suggested an MRI scan of the cervical spine before he has any manipulation done or traction by the physical therapist. Depending upon what we see, he may be a candidate for a cervical epidural injection. I reviewed the most recent x-ray of his cervical spine which shows severe degenerative disc disease and facet arthropathy with bilateral neural foraminal narrowing between C4-5 and C5-6. I will await his phone call to see whether he agrees with the MRI scan. Lower leg edema 11/09/2017 Assessment & Plan (11/03/2018 12:50 PM EDT): This has improved substantially. There may have been of an effect on this from the leflunomide. We will see how he does on the lower dose of hydrochlorothiazide. He will continue on sodium restriction and elevating his legs when he is seated. Assessment & Plan (02/23/2018 8:23 AM EDT): Rafael presents for worsening lower leg edema and he was advised to start on 25 mg of the HCTZ for 2 weeks and to F/U with PCP thereafter. He will go for the above lab work and I will update him with the results. He will also go for the ECHO and I will review his EF. He will call if this does not improve or gets worse. He understands and agrees. Assessment & Plan (01/11/2018 2:19 PM EDT): Asymmetric lower extremity edema without pitting or with good distal pulses left greater than right may be a drug effect. He will give naproxen a drug holiday for 5 days and stay on a low-sodium diet and all other medications unchanged and then follow up with me by phone call. It's reassuring to see the recent lower extremity ultrasound showing no evidence of DVT. Assessment & Plan (11/09/2017 12:41 PM EDT): Germán has lower leg swelling and this is likely secondary to the lowered diuretic, HCTZ at 12.5 mg once a day. He was given a script for HCTZ 25 mg a day. He was also advised to decrease his salt intake and to elevate his legs while sitting. Lastly he was advised to focus more on a cardiovascular exercise regimen. He will go for the above lab work and I will update him with the results. He will F/U with his PCP in a month. He understands and agrees. Essential hypertension 08/17/2017 Assessment & Plan (02/18/2025 3:37 PM EDT): Lisinopril has been on hold given NG tube to continuous wall suction. BP managed with IV hydralazine 5 mg every 6 hours as needed systolic blood pressure>170 Plan - Surgery to restart lisinopril once patient able to take pills orally. -Would continue to hold hold HCTZ as we are administering IV fluids Assessment & Plan (02/17/2025 4:09 PM EDT): Lisinopril has been on hold given NG tube to continuous wall suction. Given dose of lisinopril today however for markedly elevated blood pressures. Following discussion with surgery we will hold on oral lisinopril - IV hydralazine 5 mg every 6 hours as needed systolic blood pressure>170 -Hold HCTZ as we are administering IV fluids Assessment & Plan (02/16/2025 5:10 PM EDT): Continue lisinopril Hold HCTZ as we are administering IV fluids Assessment & Plan (02/16/2025 9:58 PM EDT): Hold lisinopril, as bump in creatinine iso mild dehydration Hold HCTZ as we are administering IV fluids Assessment & Plan (02/14/2025 2:04 PM EDT): Continue lisinopril Hold HCTZ as we are administering IV fluids Assessment & Plan (02/13/2025 8:57 AM EDT): Continue lisinopril Hold HCTZ as we are administering IV fluids Assessment & Plan (08/10/2024 5:53 PM EST): Well managed on current meds w/o s/e, recommend stay on current doses Orders: hydroCHLOROthiazide 12.5 mg capsule; Take 1 capsule (12.5 mg total) by mouth daily. lisinopril (PRINIVIL,ZESTRIL) 10 MG tablet; Take 3 tablets (30 mg total) by mouth daily. Assessment & Plan (11/03/2018 12:49 PM EDT): Excellent blood pressure today. He will stay on a low-sodium diet. He will cut his hydrochlorothiazide to 12.5 mg daily. Assessment & Plan (01/11/2018 2:16 PM EDT): Under excellent control with hydrochlorothiazide and lisinopril. Assessment & Plan (11/09/2017 12:42 PM EDT): Germán has hypertension and he was taking his combo pill (lisinopril 10 mg and HCTZ 12.5 mg) daily. He was advised to stop this as I will be increasing the HCTZ to 25 mg a day. He was given a script for lisinopril 10 mg a day for the blood pressure. He understands and agrees. Assessment & Plan (10/05/2017 3:07 PM EDT): Borderline elevation of blood pressure in a patient who does not restrict his sodium but is compliant with his combination blood pressure medicine. There is to speak to his primary care physician about this. His blood pressure today was 152/90. BPH (benign prostatic hyperplasia) 08/17/2017 GERD (gastroesophageal reflux disease) 8 Assessment & Plan (11/03/2018 12:50 PM EDT): Active but stable. He will continue on 20 mg of omeprazole daily. Hammer toe of right foot 08/17/2017 Mild intermittent asthma without complication Psoriasis 05/20/2017 Assessment & Plan (10/05/2017 3:06 PM EDT): Very mild and under good control with topical ointments. Assessment & Plan (05/20/2017 2:09 PM EDT): Stable and mild and needs no specific treatment. Psoriatic arthritis 05/20/2017 Overview (01/12/2022): Rheumatology at [facility] -- hx of mtx (gave him annual cough), xray. Assessment & Plan (02/18/2025 3:37 PM EDT): Takes otezla at home, holding as we do not have it on formulary. Patient to resume on discharge. Assessment & Plan (02/17/2025 4:09 PM EDT): Takes otezla at home, holding as we do not have it on formulary Assessment & Plan (02/16/2025 5:10 PM EDT): Takes otezla at home, holding as we do not have it on formulary Assessment & Plan (02/15/2025 4:20 PM EDT): Takes otezla at home, holding as we do not have it on formulary Assessment & Plan (02/14/2025 2:04 PM EDT): Takes otezla at home, holding as we do not have it on formulary Assessment & Plan (02/13/2025 8:57 AM EDT): Takes otezla at home, holding as we do not have it on formulary Assessment & Plan (05/16/2019 12:17 PM EDT): Active but stable under reasonably good control on 20 mg of leflunomide daily and 500 mg of Naprosyn twice daily. He will have lab work drawn today. He will mAke sure he has a flu vaccine. Assessment & Plan (11/03/2018 12:50 PM EDT): This is flaring in the form of a sausage digit in the right side which is an enthesopathic process affecting both the PIP joint MCP joint and the second flexor tendon sheath. It would be reasonable to do a local injection today but he would like to wait on that. We will continue naproxen. We will continue to stay off the leflunomide. Will call me if this does not improve and he wants to have an injection. All of his questions were answered. Last lab work was reviewed. No visits with results within 3 Month(s) from this visit. Latest known visit with results is: Transcribe Orders on 04/25/2018 Component Date Value Ref Range Status PSA 04/25/2018 1.43 0 - 4.00 ng/mL Final Assessment & Plan (07/07/2018 1:26 PM EST): Quiet without signs of synovitis or enthesopathy. No need for disease modifying antirheumatic therapy. He used to be on leflunomide but no reason to restart that. He does take naproxen sodium 500 mg twice daily as needed and he should remain on that. His blood pressure is normal today and on retake it was 118/64. Assessment & Plan (04/14/2018 1:41 PM EDT): His polyarticular psoriatic arthritis and plaque psoriasis has been quite stable and remarkably in remission off of any disease modifying antirheumatic drug as he has not taken his leflunomide for several months now. Continue him on naproxen sodium 1 twice daily as needed. He is tolerating this well. I reviewed with him his lab work showing no elevation of C-reactive protein, a stable CBC with differential, normal renal and hepatic function testing. Workup for peripheral edema showed negative ultrasound for deep venous thromboses slightly low albumin level which has been stable and normal echocardiogram and chest x-ray. I am advising that he takes a small drug holiday for 5 days from the lisinopril and to watch his sodium intake very closely over the next 5 days and then he will follow-up with me by phone call. He will continue on 25 mg hydrochlorothiazide daily. Assessment & Plan (01/11/2018 2:18 PM EDT): Symptomatic psoriatic arthritis compliant with osteoarthritis and bilateral hallux valgus is causing chronic foot pain and swelling. I advise well fitting shoes with enough room in the toe box to accommodate his valgus deformity. Assessment & Plan (10/05/2017 3:06 PM EDT): Active psoriatic arthritis in a patient with plaque psoriasis who is doing reasonably well on naproxen and leflunomide. We discussed his elevated blood pressure. We discussed the need for sodium restriction. He will speak to his primary care physician about this. He understands the both leflunomide and the naproxen can exacerbate hypertension. I reviewed with him lab work from previous visit in May showing a clear urinalysis, hemoglobin of 13.8, and AST of 32, an ALT of 32, and a white count of 6700 with a normal differential. We talked about his chronic foot pain. He has both a bunion with hallux rigidus and a bunionette. He has hammertoe deformities. He has good distal pulses. He was advised to get a wider fitting shoe perhaps a W nortriptyline with. The alternative would be referral to orthopedic foot and ankle surgery. Assessment & Plan (05/20/2017 2:10 PM EDT): 20 mg of leflunomide daily will be continued. The polyarticular erosive nature of this condition was discussed with the patient and I see no extra-articular manifestations of disease. He'll have lab work drawn today looking for any evidence of toxicity from the leflunomide. He will continue on 20 mg daily. He also uses naproxen sodium twice daily as needed and we discussed risks of long-term use of this medication as well. Greater than 50% of this 28 minute visit was spent in [id number] conversation with the patient going over the potential risks of leflunomide and going over the natural history and treatment of polyarticular psoriatic arthritis as well as treatment of recurrent ganglia. Ganglion and cyst of synovium, tendon, and bursa 05/20/2017 Assessment & Plan (05/20/2017 2:09 PM EDT): This is no particular attention at the present time but was told that if it interferes with his walking then I will aspirated and injected with cortisone. Resolved Problems Problem Noted Date Diagnosed Date Resolved Date Skin abnormality 07/18/2020 01/12/2022 Assessment & Plan (07/18/2020 10:08 AM EST): Rafael presents today for skin abnormality to his back. It has a hornlike projection to it along with the fact that this has not healed for months now I would like to have this biopsied and sent off to pathology for verification of what this is as it can range from keratosis to squamous cell carcinoma. I gave him his options and he inform you that he would like to call his insurance to see who is covered to have this procedure done. I did inform him that I am able to do this procedure in the office if you would like. He will call if there is any other issues or concerns with this. He understands and agrees. Encounters Date Type Department Care Team Description 03/07/2025 2:30 PM EDT Office Visit [facility] [address] [place] [address] [place] [address] Reginaldo Quarles CNP Post-operative state (Primary Dx); S/P exploratory laparotomy 02/19/2025 Telephone [facility] [address] [place] [address] [place] [address] Roxane Panda MD Post-op 02/18/2025 8:10 AM EDT Anesthesia Event OR Admitting Dept - Virtual Department [address] [place] [id number] Arturo Bladeras MD 02/18/2025 8:05 AM EDT - 02/18/2025 11:05 AM EDT Surgery OR Admitting Dept - Virtual Department [address] [place] [id number] Roxane Panda MD LAPAROSCOPY DIAGNOSTIC 02/18/2025 Procedure Pass OR Admitting Dept - Virtual Department [address] [place] [address] 02/15/2025 Procedure Pass [facility], Ct Scan - [facility] [address] [place] [address] 02/13/2025 3:23 AM EDT - 02/19/2025 10:51 AM EDT Hospital Encounter [facility] [place] [id number] [address] [place] [address] Marisela Wong MD Wong, MD Meghann Kumar Sandeep, MD Barbosa-Angles, Nahomy Tubbs DO, MPH Saurabh, MD Farzad Aguirre Michelle W, MD Michaelson, MD Severiano Graham, Serena Buckley MD Discharge Disposition: Home or Self Care 02/12/2025 6:23 PM EDT - 02/12/2025 10:09 PM EDT Emergency [facility] [address] [place] [address] Duane Keller MD Discharge Disposition: Home or Self Care 02/12/2025 4:13 AM EDT - 02/12/2025 8:28 AM EDT Emergency [facility] [address] [place] [address] José Miguel Taylor DO Noone, Caleb J, MD Discharge Disposition: Home or Self Care 02/12/2025 Telephone [facility] [address] [place] [address] Sharonda Caicedo MD Triage (RED - Abdominal pain) 02/12/2025 Telephone [facility] [address] [place] [address] Sharonda Caicedo MD 02/12/2025 Procedure Pass [facility], Ct Scan - [facility] [address] [place] [address] 02/12/2025 Nurse Triage [facility] [address] [place] [address] Hang Nichole PA-C Abdominal Cramping (After hours call) 02/10/2025 Nurse Triage [facility] [address] [place] [address] Jayna Gastelum CNP Leg Swelling (After Hours Call ) 01/25/2025 9:18 AM EDT - 01/25/2025 11:59 PM EDT Hospital Encounter [facility] [address] [place] [address] Sharonda Caicedo MD Discharge Disposition: Home or Self Care 01/08/2025 12:00 PM EDT Office Visit [facility] [address] [place] [address] Sharonda Caicedo MD Annual physical exam (Primary Dx); Screening for metabolic disorder; Essential hypertension from Last 3 Months Immunizations Immunization Administration Dates Next Due COVID-19 (Pre-05/10) Pfizer Vaccine, mRNA, PF 11/02/2020,10/12/2020 Hepatitis A, Adult 02/07/2019,01/31/2019, 015 Influenza High-Dose Quadriva lent Preservative Free IM 07/15/2023 Influenza Quadrivalent Preservative Free IM 09/2019,07/05/2018,05/15/2016 Influenza Recombinant Avelina valent Preservative Free IM 05/28/2020 Influenza trivalent preserva tive free intradermal 04/07/2012 Influenza, Unspecified Formulation 05/28/2020 Influenza, whole 04/07/2012 Pneumococcal conjugate PCV13 01/12/2022 Pneumococcal conjugate PCV20 07/15/2023 RSV Vaccine (monovalent, adjuvanted) 07/20/2023 Td (adult),2 Lf Tetanus Toxo id, PF, Adsorbed 07/15/2023 Tdap 04/07/2012 Typhoid, unspecified formulation 02/07/2019,01/16 Zoster recombinant 07/03/2021,01/08/2021 Family History Medical History Relation Comments No Known Problems Brother Heart attack Father Leukemia Father Prostate cancer Father Hypertension Sister 1 Hypertension Sister 2 Relation Status Comments Brother Alive Father 99 of [place] Mother 64 of [place] (smoker) Sister 1 Alive Sister 2 Alive Sister 3 Alive Social History Tobacco Use Types Packs/Day Years Used Date Smoking Tobacco: Never Smokeless Tobacco: Never Tobacco Cessation:Counseling Given: Not Answered Alcohol Use Standard Drinks/Week Comments Not Currently 0 (1 standard drink = 0.6 oz pur e alcohol) Child or Family Care Answer Date Record ed Do you have problems with on e of the following making it difficult for you to work, study, or receive health care? No 01/10/2023 Education Answer Date Recorded Are you interested in more education? Not on shell e 01/25/2025 Are you concerned about learning? Not on file 01/25/2025 No 01/25/2025 No 01/25/2025 Food Answer Date Recorded Within the past 6 months we worried whether our food would run out before we got money to buy more. Never True 02/14/2025 Within the past 6 months the food we bought just didn't last and we didn't have enough money to get more. Never True Residential Stability Answer Date Recor ded What is your housing situation today? I have mekhi sing 02/14/2025 How many times have you move d in the past 12 months? Zero (I did not move) 02/14/2025 Paying for Meds Answer Date Recorded Do you have trouble paying for medicines? No 02/14/2025 Paying Utility Bills Answer Date Record ed Do you have trouble paying your heating or elect ricity bill? No 02/14/2025 Transportation Answer Date Recorded Has the lack of transportati on kept you from medical appointments or from getting medications? No 02/14/2025 Unemployment Answer Date Recorded Are you currently unemployed or working on a part-time or temporary basis, and looking for work? No 01/12/2022 Digital Access Answer Date Recorded No 02/14/2025 Yes 02/14/2025 Do you have reliable internet access at home? Ye s 02/14/2025 Do you have a device (e.g., phone, tablet, computer) with a working camera? Yes 02/14/2025 Intimate Partner Violence Answer Date R ecorded Are you denied basic needs s uch as food, clothing, or medical care? No 02/13/2025 In the past 12 months have y ou been in a relationship with a person who hurts, threatens, or tries to control you? No 02/13/2025 Are you denied basic needs s uch as food, clothing, or medical care? No 02/13/2025 In the past 12 months have y ou been in a relationship with a person who hurts, threatens, or tries to control you? No 02/13/2025 Sex and Gender Information Value Date Recorded Sex Assigned at Male 05/27/2020 10:25 AM EST Legal Sex Male 9:52 PM EDT Gender Identity Male 05/27/2020 10:25 AM EST Sexual Orientation Straight 05/27/2020 10 :25 AM EST Last Filed Vital Signs Vital Sign Reading Time Taken Comments Blood Pressure 112/60 03/07/2025 2:36 PM EDT Pulse 72 03/07/2025 2:36 PM EDT Temperature 36.5 C (97.7 F) 03/07/2025 2:36 PM EDT Respiratory Rate 18 02/19/2025 7:57 AM EDT Oxygen Saturation 99% 03/07/2025 2:36 PM EDT Inhaled Oxygen Concentration - - Weight 73.7 kg (162 lb 6.4 oz) 02/18/2025 5:00 A M EDT Height 172.7 cm (5' 7.99 ) 02/15/2025 5:26 AM ED T Body Mass Index 24.7 02/15/2025 5:26 AM EDT Plan of Treatment Upcoming Encounters Date Type Department Care Team (Late st Contact Info) Description 02/17/2025 11:59 PM EDT Anesthesia Event [facility] [address] [place] [address] Arturo Balderas MD [address] [place] [address] 04/18/2025 10:30 AM EDT Office Visit [facility] [address] [place] [address] Sharonda Caicdeo MD [address] [facility], [address] [place] [address] [email or web address] Health Maintenance Due Date Last Done Comments COLOGUARD 2002 FIT TEST 2002 FOBT 2002 SIGMOIDOSCOPY 2002 VIRTUAL COLONOSCOPY 2002 INFLUENZA VACCINE (#1) 2025 , 05/28/2020, 05/28/2020, Additional history exists COVID-19 VACCINE ( season) 2025 07/20/2023, 11/26/2021, 06/18/2021, Additional history exists BLOOD PRESSURE 09/07/2025 03/07/2025 DEPRESSION SCREENING 01/01/2026 01/01/2025 CREATININE LEVEL 02/19/2026 02/19/2025, 09/2024, 02/17/2025, Additional history exists POTASSIUM LEVEL 02/19/2026 02/19/2025, 08/0 09/2024, 02/17/2025, Additional history exists COLONOSCOPY 01/14/2028 01/13/2018, 01/13/2018 COLORECTAL CANCER SCREENING 01/14/2028 LIPID PANEL 01/25/2030 01/25/2025, 12/18, 01/08/2021, Additional history exists Adult Td,Tdap Booster 07/15/2033 07/15/2023, 012 HEPATITIS A VACCINES Aged Out 02/07/2019, 01/31/2019, 01/22/2015 No longer eligible based on patient's age to complete this topic ZOSTER VACCINES Completed 07/03/2021, 01/08/2021 PNEUMOCOCCAL VACCINES (50+ years) Completed 07/15/2023, 01/12/2022 RSV VACCINE Completed 07/20/2023 SMOKING STATUS SCREENING (Once After 26 Yrs) Completed 03/07/2025 HIB VACCINES Aged Out No longer eligi ble based on patient's age to complete this topic MENINGOCOCCAL VACCINES (ACWY) Aged Out No longer eligible based on patient's age to complete this topic MENINGOCOCCAL VACCINES (B) Aged Out N o longer eligible based on patient's age to complete this topic Medical Devices Not on file Procedures Procedure Name Priority Date/Time Associated Diagnosis Comments CBC Routine 02/19/2025 5:55 AM EDT PHOSPHORUS Routine 02/19/2025 5:55 AM EDT MAGNESIUM Routine 02/19/2025 5:55 AM EDT COMPREHENSIVE METABOLIC PANEL Routine 02/19/2025 5:55 AM EDT POCT GLUCOSE Routine 02/18/2025 9:43 AM EDT AIRWAY PLACEMENT Routine 02/18/2025 8:37 AM EDT LAPAROSCOPIC LYSIS OF ADHESIONS 02/18/2025 8:25 AM EDT Small Bowel Obstruction AL LAP,DIAGNOSTIC ABDOMEN 02/18/2025 8:25 AM EDT Small Bowel Obstruction CBC Routine 02/18/2025 5:16 AM EDT PHOSPHORUS Routine 02/18/2025 5:16 AM EDT MAGNESIUM Routine 02/18/2025 5:16 AM EDT COMPREHENSIVE METABOLIC PANEL Routine 02/18/2025 5:16 AM EDT XR ABDOMEN SERIES SUPINE WITH DECUBITIS/ERECT AND SINGLE VIEW CHEST Imaging in AM 02/17/2025 7:33 AM EDT CBC Routine 02/17/2025 7:12 AM EDT PT-INR Routine 02/17/2025 7:12 AM EDT PHOSPHORUS Routine 02/17/2025 7:12 AM EDT MAGNESIUM Routine 02/17/2025 7:12 AM EDT COMPREHENSIVE METABOLIC PANEL Routine 02/17/2025 7:12 AM EDT PHOSPHORUS Routine 02/16/2025 6:06 AM EDT MAGNESIUM Routine 02/16/2025 6:06 AM EDT COMPREHENSIVE METABOLIC PANEL Routine 02/16/2025 6:06 AM EDT CBC Routine 02/16/2025 6:[address] ABDOMEN/PELVIS WITH CONTRAST STAT 02/15/2025 3:51 PM EDT XR CHEST PORTABLE STAT 02/15/2025 2:2 6 PM EDT XR ABDOMEN SERIES SUPINE WITH DECUBITIS/ERECT AND SINGLE VIEW CHEST Routine 02/15/2025 11:37 AM EDT PHOSPHORUS Routine 02/15/2025 5:56 AM EDT MAGNESIUM Routine 02/15/2025 5:56 AM EDT COMPREHENSIVE METABOLIC PANEL Routine 02/15/2025 5:56 AM EDT CBC Routine 02/15/2025 5:56 AM EDT TSH WITH REFLEX Routine 02/14/2025 6:18 AM EDT C-REACTIVE PROTEIN Routine 02/14/2025 6: 18 AM EDT PHOSPHORUS Routine 02/14/2025 6:18 AM EDT MAGNESIUM Routine 02/14/2025 6:18 AM EDT COMPREHENSIVE METABOLIC PANEL Routine 02/14/2025 6:18 AM EDT CBC Routine 02/14/2025 6:18 AM EDT URINALYSIS W/REFLEX URINE CULTURE STAT 02/13/2025 2:42 PM EDT ECG 12-LEAD STAT 02/13/2025 3:55 AM EDT C-REACTIVE PROTEIN STAT 02/13/2025 3: 43 AM EDT LACTIC ACID (LACTATE) STAT 02/13/2025 3:43 AM EDT LIPASE STAT 02/13/2025 3:43 AM EDT MAGNESIUM STAT 02/13/2025 3:43 AM EDT LFTS (HEPATIC PANEL) STAT 02/13/2025 3:43 AM EDT BASIC METABOLIC PANEL STAT 02/13/2025 3:43 AM EDT CBC AND DIFFERENTIAL STAT 02/13/2025 3:43 AM EDT LACTIC ACID (LACTATE) STAT 02/12/2025 7:51 PM EDT LIPASE STAT 02/12/2025 7:51 PM EDT LFTS (HEPATIC PANEL) STAT 02/12/2025 7:51 PM EDT BASIC METABOLIC PANEL STAT 02/12/2025 7:51 PM EDT CBC AND DIFFERENTIAL STAT 02/12/2025 7:51 PM EDT LACTIC ACID (LACTATE) STAT 02/12/2025 5:35 AM EDT LIPASE STAT 02/12/2025 5:35 AM EDT LFTS (HEPATIC PANEL) STAT 02/12/2025 5:35 AM EDT BASIC METABOLIC PANEL STAT 02/12/2025 5:35 AM EDT CBC AND DIFFERENTIAL STAT 02/12/2025 5:[address] ABDOMEN/PELVIS WITH CONTRAST Routine 02/12/2025 5:27 AM EDT CBC Routine 01/25/2025 9:18 AM EDT Screening for metabolic disorder COMPREHENSIVE METABOLIC PANEL Routine 01/25/2025 9:18 AM EDT Screening for metabolic disorder HEMOGLOBIN A1C Routine 01/25/2025 9:18 AM EDT Screening for metabolic disorder LIPID PANEL Routine 01/25/2025 9:18 AM EDT Screening for metabolic disorder HM COLONOSCOPY FOR RESULT ENTRY ONLY Routine 01/13/2018 from Last 3 Months or Most Recently Relevant to Health Maintenance Results * (ABNORMAL) Comprehensive metabolic panel (02/19/2025 5:55 AM EDT) Only the most recent of7 resultswithin the time period is included. SODIUM 144 133 - 146 mmol/L [facility] POTASSIUM 3.5 3.3 - 5.1 mmol/L [facility] CHLORIDE 107 96 - 108 mmol/L [facility] CO2 27 21 - 35 mmol/L [facility] BUN 23(H) 6 - 19 mg/dL [facility] CREATININE 1.10 0.5 - 1.5 mg/dL [facility] GLUCOSE 113(H) 70 - 99 mg/dL [facility] ALBUMIN 3.1(L) 3.9 - 4.8 g/dL [facility] TOTAL PROTEIN 5.1(L) 6.5 - 8.0 g/dL [facility] CALCIUM 8.2(L) 8.4 - 10.3 mg/dL [facility] ALKALINE PHOSPHATASE 75 39 - 117 U/L [facility] TOTAL BILIRUBIN 0.7 0.0 - 1.2 mg/dL [facility] AST 19 0 - 37 U/L [facility] ALT 19 0 - 40 U/L [facility] GLOBULIN 2.0 1 - 4.8 g/dL [facility] EGFR 74 >59 mL/min/1.7 3m2 [facility] Comment:Estimated glomerular filtration rate calculated using the CKD-EPI refit equation. ANION GAP 14 10 - 20 mmol/L [facility] Blood 02/19/2025 5:55 AM EDT 02/19/2025 6:09 AM EDT Nahomy Rios DO, MPH LAB BLOOD ORDER HANSEL Final Result Performing Organization Address City/[facility] [address]/ZIP Co de Phone Number [address] [address] * (ABNORMAL) CBC (02/19/2025 5:55 AM EDT) Only the most recent of7 resultswithin the time period is included. WBC 13.18(H) 4.00 - 11.00 K/uL [facility] RBC 4.31(L) 4.50 - 5.90 M/uL [facility] HGB 12.7(L) 13.5 - 17.5 g/dL [facility] HCT 38.6(L) 41.0 - 53.0 % [facility] PLT 304 150 - 450 K/uL [facility] MCV 89.6 80.0 - 100.0 fL [facility] MCH 29.5 27.0 - 31.0 pg [facility] MCHC 32.9 32.0 - 36.0 g/dL [facility] RDW 12.7 11.5 - 14.5 % [facility] MPV 9.7 8.4 - 12.0 fL [facility] NRBC 0.00 0.00 /100 WBCs [facility] ABSOLUTE NRBC 0.00 0.00 K/uL [facility] Blood 02/19/2025 5:55 AM EDT 02/19/2025 6:09 AM EDT Nahomy Rios DO, MPH LAB BLOOD ORDER HANSEL Final Result [address] [address] * (ABNORMAL) Phosphorus (02/19/2025 5:55 AM EDT) Only the most recent of6 resultswithin the time period is included. PHOSPHORUS 2.0(L) 2.7 - 4.5 mg/dL [facility] Blood 02/19/2025 5:55 AM EDT 02/19/2025 6:09 AM EDT Nahomy Rios DO, MPH LAB BLOOD ORDER HANSEL Final Result Performing Organization Address City/[facility] [address]/ZIP Co de Phone Number [address] [phone] * Magnesium (02/19/2025 5:55 AM EDT) Only the most recent of7 resultswithin the time period is included. MAGNESIUM 2.1 1.6 - 2.6 mg/dL [facility] Blood 02/19/2025 5:55 AM EDT 02/19/2025 6:09 AM EDT us Nahomy Rios DO, MPH LAB BLOOD ORDER HANSEL Final Result Performing Organization Address City/[facility] [address]/ZIP Co de Phone Number [address] [address] * (ABNORMAL) POCT Glucose (02/18/2025 9:43 AM EDT) Glucose, POCT 103(H) 70 - 100 mg/dL [facility] 02/18/2025 9:43 AM EDT 02/18/2025 9:47 AM EDT us Roxane Panda MD POINT OF CARE TEST ORDERABLE S Final Result Performing Organization Address City/[facility] [address]/ZIP Co de Phone Number [address] [address] * ANES ETT DOUBLE LUMEN - AIRWAY LDA (02/18/2025 8:37 AM EDT) Narrative Arturo Balderas MD - 02/18/2025 8:37 AM EDT Arturo Balderas MD 02/18/2025 9:08 AM Airway Placement Procedure Note: Patient was not difficult to intubate. Procedure performed by: anesthesiologist Anesthesiologist: Arturo Balderas MD Airway procedure initiated at:02/18/2025 8:37 AM and ended at. Personal Protective Equipment: Mask: surgical mask Gloves: gloves Mask Ventilation: Quality: not attempted Airway Placement: Technique: video laryngoscopy Rapid sequence induction: yes Details: Blade type: Glidescope Blade size: LoPro S4 Video view: grade 1non-elective Airway manipulation: cricoid pressure Number of attempts: 1 ETT type: cuffed ETT size: 7.0 ETT depth at teeth: 22 ETT cuff inflation volume: 7 Tube position confirmed by: bilateral breath sounds Outcomes: Evidence of dental injury? no Complications observed? no us Arturo Balderas MD AL ANESTHESIA Final Result * XR Abdomen Series Supine with Decubitus/Erect and Single View Chest (02/17/2025 7:33 AM EDT) MGB IMG [employer] COMMENT Nasogastric tube side port in the distal esophagus. Recommend advancement of 10 cm [facility] Anatomical Region Laterality Modality Abdomen, Chest Computed Radiogr aphy 02/17/2025 10:5 9 AM EDT Impressions 02/17/2025 11:06 AM EDT 1. Distended, contrast-filled small bowel consistent with small bowel obstruction. There may be trace contrast in the right colon. 2. Nasogastric tube side port in the distal esophagus. Recommend advancement. A clinically significant result was initiated on 02/17/2025 11:06 AM, Message ID [id number]. Narrative 02/17/2025 11:06 AM EDT XR ABDOMEN SERIES SUPINE WITH DECUBITIS/ERECT AND SINGLE VIEW CHEST Referring clinician's provided indication for this examination in Epic: Abdominal distension COMPARISON: XR ABDOMEN SERIES SUPINE WITH DECUBITIS/ERECT AND SINGLE VIEW .. ; CT ABDOMEN/PELVIS WITH CONTRAST FINDINGS: CHEST:Mild bibasilar atelectasis. No effusions or pneumothorax. Cardiac silhouette and hilar contours are unchanged. ABDOMEN: Distended, contrast-filled small bowel consistent with small bowel obstruction. There may be trace contrast in the right colon. Nasogastric tube side port projects in the distal esophagus. Recommend advancement of approximately 10 cm. Procedure Note Joel Gutierres MD - 02/17/2025 XR ABDOMEN SERIES SUPINE WITH DECUBITIS/ERECT AND SINGLE VIEW CHEST Referring clinician's provided indication for this examination in Epic:Abdominal distension COMPARISON: XR ABDOMEN SERIES SUPINE WITH DECUBITIS/ERECT AND SINGLE VIEW.. ; CT ABDOMEN/PELVIS WITH CONTRAST FINDINGS: CHEST:Mild bibasilar atelectasis. No effusions or pneumothorax. Cardiacsilhouette and hilar contours are unchanged. ABDOMEN: Distended, contrast-filled small bowel consistent with smallbowel obstruction. There may be trace contrast in the right colon. Nasogastric tube side port projects in the distal esophagus. Recommendadvancement of approximately 10 cm. IMPRESSION: 1. Distended, contrast-filled small bowel consistent with small bowelobstruction. There may be trace contrast in the right colon. 2. Nasogastric tube side port in the distal esophagus. Recommendadvancement. A clinically significant result was initiated on 02/17/2025 11:06 AM,Message ID [id number]. Nahomy Rios DO MPH IMG XR ABDOMEN Final Result * PT-INR (02/17/2025 7:12 AM EDT) PT 12.1 10.2 - 12.9 sec [facility] INR 1.0 0.9 - 1.1 [facility] Comment:Therapeutic range fo r oral Vitamin K antagonists: 2.0-3.5 Blood 02/17/2025 7:12 AM EDT 02/17/2025 7:20 AM EDT Nahomy Rios DO MPH LAB BLOOD ORDER HANSEL Final Result [address] [address] * CT ABDOMEN/PELVIS WITH CONTRAST (02/15/2025 3:51 PM EDT) Anatomical Region Laterality Modality Abdomen, Pelvis Computed Tomogra phy 02/15/2025 3:53 PM EDT Impressions 02/15/2025 4:15 PM EDT 1. Distal small bowel obstruction most likely secondary to disease is. 2. Mild free fluid within the abdomen, not readily drainable. No ectopic gas. 3. No concerning solid organ abnormality. Ordering provider Dr. Kathleen Flor was notified imaging findings shortly after completion of interpretation. Narrative 02/15/2025 4:[address] ABDOMEN/PELVIS WITH CONTRAST Referring clinician's provided indication for this examination in Epic: * Abdominal distension Previous CT showed by prominence of small bowel loops. Follow-up plain film shows small bowel dilation and air-fluid levels concerning for SBO. TECHNIQUE: Multidetector-row CT of the abdomen and pelvis was performed after administration of intravenous contrast using tailored dose modulation techniques. Images were reconstructed in the axial, coronal, and sagittal planes. COMPARISON: Abdominal series 02/15/[address] abdomen and pelvis 02/12/2025. FINDINGS: Lower Chest: Trace right base effusion. Bilateral posterior lower lobe linear parenchymal opacities (atelectasis). Liver: Normal. No focal lesions. Biliary: Normal. No biliary ductal dilatation. Spleen: Normal. No splenomegaly or focal lesions. Pancreas: Normal. No masses or ductal dilatation. Adrenal Glands: Normal. No nodules. Kidneys/Ureters: Normal. No solid masses, stones, or hydronephrosis. Bowel: Development of diffuse small bowel dilation with air-fluid levels, loops of bowel measuring 3.8 cm mid abdomen, extending down to decompress distal ileum. Transition from dilated small bowel to normal caliber/decompressed small bowel short distance proximal to ileocecal junction. No discernible mass or other clearly reason for obstruction; therefore, adhesion favored. Gas and scattered low volume fecal material throughout colon. No colonic dilation. No focal wall thickening. Normal mucosal enhancement. Fluid-filled distended stomach. Gastric tube in place projecting into mid to upper stomach. Peritoneum/Retroperitoneum: Small amount of free fluid, not readily drainable, maximal adjacent to the liver and within the far dependent portion of the pelvis. No ectopic gas. Lymph Nodes: Normal. No lymphadenopathy. Pelvic Organs/Bladder: Fluid-filled urinary bladder with no focal abnormality. Vessels: Normal contour, caliber and enhancement aorta, IVC, portal vein and major branch vessels. Bones/Soft Tissues: Normal. No destructive osseous lesions. Procedure Note Khari Black MD - 02/15/2025 CT ABDOMEN/PELVIS WITH CONTRAST Referring clinician's provided indication for this examination in Epic: *Abdominal distension Previous CT showed by prominence of small bowel loops. Follow-up plainfilm shows small bowel dilation and air-fluid levels concerning for SBO. TECHNIQUE: Multidetector-row CT of the abdomen and pelvis was performedafter administration of intravenous contrast using tailored dosemodulation techniques. Images were reconstructed in the axial, coronal,and sagittal planes. COMPARISON: Abdominal series 02/15/[address] abdomen and pelvis02/12/2025. FINDINGS: Lower Chest: Trace right base effusion. Bilateral posterior lower lobelinear parenchymal opacities (atelectasis). Liver: Normal. No focal lesions. Biliary: Normal. No biliary ductal dilatation. Spleen: Normal. No splenomegaly or focal lesions. Pancreas: Normal. No masses or ductal dilatation. Adrenal Glands: Normal. No nodules. Kidneys/Ureters: Normal. No solid masses, stones, or hydronephrosis. Bowel: Development of diffuse small bowel dilation with air-fluid levels,loops of bowel measuring 3.8 cm mid abdomen, extending down to decompressdistal ileum. Transition from dilated small bowel to normalcaliber/decompressed small bowel short distance proximal to ileocecaljunction. No discernible mass or other clearly reason for obstruction;therefore, adhesion favored. Gas and scattered low volume fecal materialthroughout colon. No colonic dilation. No focal wall thickening. Normalmucosal enhancement. Fluid-filled distended stomach. Gastric tube in placeprojecting into mid to upper stomach. Peritoneum/Retroperitoneum: Small amount of free fluid, not readilydrainable, maximal adjacent to the liver and within the far dependentportion of the pelvis. No ectopic gas. Lymph Nodes: Normal. No lymphadenopathy. Pelvic Organs/Bladder: Fluid-filled urinary bladder with no focalabnormality. Vessels: Normal contour, caliber and enhancement aorta, IVC, portal veinand major branch vessels. Bones/Soft Tissues: Normal. No destructive osseous lesions. IMPRESSION: 1. Distal small bowel obstruction most likely secondary to disease is. 2. Mild free fluid within the abdomen, not readily drainable. No ectopicgas. 3. No concerning solid organ abnormality. Ordering provider Dr. Kathleen Flor was notified imaging findings shortlyafter completion of interpretation. Nahomy Rios DO, MPH IMG CT ABD/PELV IS Final Result * XR Chest Portable (02/15/2025 2:26 PM EDT) Anatomical Region Laterality Modality Chest Computed Radiogr aphy 02/15/2025 2:29 PM EDT Impressions 02/15/2025 2:33 PM EDT Nasogastric tube extends to the left upper abdomen distal tip not visualized but likely within the body of the stomach. Bibasilar atelectasis Narrative 02/15/2025 2:33 PM EDT XR CHEST PORTABLE Referring clinician's provided indication for this examination in [facility]: s/p Feeding Tube/NGT; NGT in R nare, placement verification COMPARISON: 02/15/2025 FINDINGS: Devices/Tubes/Lines: There is a nasogastric tube seen coursing through the esophagus extending to the left upper abdomen. Distal tip is not visualized but likely is within the body of the stomach Lungs: Bibasilar atelectasis. No lobar pneumonia or pulmonary edema. Pleura: Normal. No pleural effusion or pneumothorax. Heart/Mediastinum: Normal heart and mediastinum. Bones/Soft Tissues: Normal. No significant skeletal abnormality. Procedure Note Harsha Cohen MD - 02/15/2025 XR CHEST PORTABLE Referring clinician's provided indication for this examination in [facility]:s/p Feeding Tube/NGT; NGT in R nare, placement verification COMPARISON: 02/15/2025 FINDINGS: Devices/Tubes/Lines: There is a nasogastric tube seen coursing through theesophagus extending to the left upper abdomen. Distal tip is notvisualized but likely is within the body of the stomach Lungs: Bibasilar atelectasis. No lobar pneumonia or pulmonary edema. Pleura: Normal. No pleural effusion or pneumothorax. Heart/Mediastinum: Normal heart and mediastinum. Bones/Soft Tissues: Normal. No significant skeletal abnormality. IMPRESSION: Nasogastric tube extends to the left upper abdomen distal tip notvisualized but likely within the body of the stomach. Bibasilar atelectasis us Nahomy Rios DO, MPH IMG XR CHEST Final Result * XR Abdomen Series Supine with Decubitus/Erect and Single View Chest (02/15/2025 11:37 AM EDT) MGB IMG [employer] CONSULTANT COMMENT Distended air-filled and fluid-filled loops of small bowel with numerous air-fluid levels suspicious for worsening/progr essing small bowel obstruction [facility] Anatomical Region Laterality Modality Abdomen, Chest Computed Radiogr aphy 02/15/2025 11:4 0 AM EDT Impressions 02/15/2025 11:45 AM EDT Abnormal exam. Increasing distention of small bowel loops suspicious for progressing small bowel obstruction. Follow-up CT scanning can be performed to further evaluate. Continued surgical consultation recommended. Low lung volumes with bibasilar atelectasis A clinically significant result was initiated on 02/15/2025 11:44 AM, Message ID [id number]. Narrative 02/15/2025 11:45 AM EDT XR ABDOMEN SERIES SUPINE WITH DECUBITIS/ERECT AND SINGLE VIEW CHEST Referring clinician's provided indication for this examination in Epic: Abdominal distension; ileus vs sbo COMPARISON: CT dated 02/12/2025 FINDINGS: CHEST:Lung volumes are somewhat low. Bibasilar atelectasis. No convincing evidence for lobar pneumonia or pulmonary edema. No significant pleural effusions. No pneumothorax. ABDOMEN: There are numerous air-fluid levels present within abnormal distended air-filled and fluid-filled loops of small bowel that appear more prominent than on the CT scan from 02/12/2025 measuring up to 3.8 cm in diameter. Findings are suspicious for progressing small bowel obstruction. No convincing evidence for free air. Mild degenerative changes in the spine and both hips. Procedure Note Harsha Cohen MD / System, Provider Not In, PhD - 02/15/2025 XR ABDOMEN SERIES SUPINE WITH DECUBITIS/ERECT AND SINGLE VIEW CHEST Referring clinician's provided indication for this examination in Epic:Abdominal distension; ileus vs sbo COMPARISON: CT dated 02/12/2025 FINDINGS: CHEST:Lung volumes are somewhat low. Bibasilar atelectasis. No convincingevidence for lobar pneumonia or pulmonary edema. No significant pleuraleffusions. No pneumothorax. ABDOMEN: There are numerous air-fluid levels present within abnormaldistended air-filled and fluid-filled loops of small bowel that appearmore prominent than on the CT scan from 02/12/2025 measuring up to 3.8 cmin diameter. Findings are suspicious for progressing small bowelobstruction. No convincing evidence for free air. Mild degenerative changes in the spine and both hips. IMPRESSION: Abnormal exam. Increasing distention of small bowel loops suspicious for progressingsmall bowel obstruction. Follow-up CT scanning can be performed to furtherevaluate. Continued surgical consultation recommended. Low lung volumes with bibasilar atelectasis A clinically significant result was initiated on 02/15/2025 11:44 AM,Message ID [id number]. Nahomy Rios DO, MPH IMG XR ABDOMEN Edited Result - Final * TSH with reflex (02/14/2025 6:18 AM EDT) TSH 2.43 0.27 - 4.20 uIU/mL [facility] Blood 02/14/2025 6:18 AM EDT 02/14/2025 6:48 AM EDT Vivek Zavaleta MD LAB BLOOD ORDERABLES Final R esult Performing Organization Address [facility] [address]/ZIP Co de Phone Number [address] [address] * (ABNORMAL) C-Reactive Protein (02/14/2025 6:18 AM EDT) Only the most recent of2 resultswithin the time period is included. C REACTIVE PROTEIN 25.1(H) 0.0 - 4.0 mg/L [facility] Blood 02/14/2025 6:18 AM EDT 02/14/2025 6:48 AM EDT Vivek Zavaleta MD LAB BLOOD ORDERABLES Final R esult Performing Organization Address [facility] Co de Phone Number [address] [address] * Urinalysis w/reflex Urine Culture (02/13/2025 2:42 PM EDT) COLOR Yellow Yellow [facility] CLARITY Clear [facility] GLUCOSE Negative Negative [facility] BILI Negative Negative [facility] KETONES Negative Negative [facility] SPECIFIC GRAVITY <1.005 1.005 - 1.030 [facility] BLOOD Negative Negative [facility] PH 6.0 5.0 - 8.0 [facility] Protein-UA Negative Negative [facility] NITRITE Negative Negative [facility] Leukocyte esterase, ur Negative Negative [facility] Urine (Urine) 02/13/2025 2:4 2 PM EDT 02/13/2025 3:30 PM EDT Marisela Wong MD URINE ORDERABLES Final Resul t Performing Organization Address [facility] [address]/[facility] Co de Phone Number [address] [address] * ECG 12-LEAD (02/13/2025 3:55 AM EDT) Ventricular Rate EKG/MIN 74 BPM [facility] Atrial Rate 74 BPM [facility] AL Interval 198 ms [facility] QRS Duration 90 ms [facility] QT Interval 392 ms [facility] QTC Interval 435 ms [facility] P [place] 64 degrees [facility] R Wave [place] 52 degrees [facility] T Wave [place] 59 degrees [facility] 02/13/2025 3:55 AM EDT 02/13/2025 11:00 AM EDT Narrative [facility] - 02/13/2025 11:00 AM EDT Normal sinus rhythm Septal infarct , age undetermined Abnormal ECG No previous ECGs available Confirmed by Vipin GUO ([id number]) on 02/13/2025 11:00:08 AM us Marisela Wong MD ECG ORDERABLES Final Result Performing Organization Address City/[facility] [address]/[facility] Co de Phone Number [email or web address] * LFTs (hepatic panel) (02/13/2025 3:43 AM EDT) Only the most recent of3 resultswithin the time period is included. ALKALINE PHOSPHATASE 102 39 - 117 U/L [facility] TOTAL BILIRUBIN 0.6 0.0 - 1.2 mg/dL [facility] DIRECT BILIRUBIN 0.2 0.0 - 0.2 mg/dL [facility] Bilirubin (Indirect) 0.4 0 - 1.5 mg/dL [facility] AST 25 0 - 37 U/L [facility] ALT 31 0 - 40 U/L [facility] TOTAL PROTEIN 6.8 6.5 - 8.0 g/dL [facility] ALBUMIN 4.1 3.9 - 4.8 g/dL [facility] GLOBULIN 2.7 1 - 4.8 g/dL [facility] A/G Ratio 1.52 1.00 - 4.80 RATIO [facility] Blood 02/13/2025 3:43 AM EDT 02/13/2025 3:48 AM EDT us Marisela Wong MD LAB BLOOD ORDERABLES Final R esult Performing Organization Address City/[facility] [address]/ZIP Co de Phone Number [address] [address] * (ABNORMAL) CBC and differential (02/13/2025 3:43 AM EDT) Only the most recent of3 resultswithin the time period is included. WBC 13.51(H) 4.00 - 11.00 K/uL [facility] RBC 4.75 4.50 - 5.90 M/uL [facility] HGB 14.1 13.5 - 17.5 g/dL [facility] HCT 40.6(L) 41.0 - 53.0 % [facility] PLT 298 150 - 450 K/uL [facility] MCV 85.5 80.0 - 100.0 fL [facility] MCH 29.7 27.0 - 31.0 pg [facility] MCHC 34.7 32.0 - 36.0 g/dL [facility] RDW 12.6 11.5 - 14.5 % [facility] MPV 9.4 8.4 - 12.0 fL [facility] NRBC 0.00 0.00 /100 WBCs [facility] ABSOLUTE NRBC 0.00 0.00 K/uL [facility] DIFF METHOD Auto [facility] NEUTS 91.4(H) 48.0 - 76.0 % [facility] LYMPHS 4.8(L) 18.0 - 41.0 % [facility] MONOS 3.3(L) 4.0 - 11.0 % [facility] EOS 0.1 0.0 - 5.0 % [facility] BASOS 0.1 0.0 - 1.5 % [facility] Granulocytes, immature (%) 0.3 0.0 - 0.9 % [facility] ABSOLUTE NEUTS 12.35(H) 1.92 - 7.60 K/uL [facility] ABSOLUTE LYMPHS 0.65(L) 0.72 - 4.10 K/uL [facility] ABSOLUTE MONOS 0.44 0.16 - 1.10 K/uL [facility] ABSOLUTE EOS 0.01 0.00 - 0.50 K/uL [facility] ABSOLUTE BASOS 0.02 0.00 - 0.15 K/uL [facility] Granulocytes, immature 0.04 0.00 - 0.09 K/uL [facility] Blood 02/13/2025 3:43 AM EDT 02/13/2025 3:48 AM EDT Marisela Wong MD LAB BLOOD ORDERABLES Final R esult Performing Organization Address City/[facility] [address]/ZIP Co de Phone Number [address] [address] * Lipase (02/13/2025 3:43 AM EDT) Only the most recent of3 resultswithin the time period is included. LIPASE 31 16 - 63 U/L [facility] Blood 02/13/2025 3:43 AM EDT 02/13/2025 3:48 AM EDT Marisela Wong MD LAB BLOOD ORDERABLES Final R esult Performing Organization Address [facility] [address]/[facility] Co de Phone Number [address] [address] * Lactate (02/13/2025 3:43 AM EDT) Only the most recent of3 resultswithin the time period is included. LACTATE 1.82 0.50 - 2.20 mmol/L [facility] Blood 02/13/2025 3:43 AM EDT 02/13/2025 3:48 AM EDT Marisela Wong MD LAB BLOOD ORDERABLES Final R esult Performing Organization Address [facility] [address]/[facility] Co de Phone Number [address] [address] * (ABNORMAL) Basic metabolic panel (02/13/2025 3:43 AM EDT) Only the most recent of3 resultswithin the time period is included. SODIUM 135 133 - 146 mmol/L [facility] CHLORIDE 97 96 - 108 mmol/L [facility] POTASSIUM 3.9 3.3 - 5.1 mmol/L [facility] CO2 24 21 - 35 mmol/L [facility] BUN 20(H) 6 - 19 mg/dL [facility] CREATININE 1.00 0.5 - 1.5 mg/dL [facility] GLUCOSE 149(H) 70 - 99 mg/dL [facility] CALCIUM 9.5 8.4 - 10.3 mg/dL [facility] EGFR 82 >59 mL/min/1.7 3m2 [facility] Comment:Estimated glomerular filtration rate calculated using the CKD-EPI refit equation. ANION GAP 18 10 - 20 mmol/L [facility] Blood 02/13/2025 3:43 AM EDT 02/13/2025 3:48 AM EDT us Marisela Wong MD LAB BLOOD ORDERABLES Final R esult [facility] [address] [place] [address] * CT ABDOMEN/PELVIS WITH CONTRAST (02/12/2025 5:27 AM EDT) Anatomical Region Laterality Modality Abdomen, Pelvis Computed Tomogra phy 02/12/2025 5:47 AM EDT Impressions 02/12/2025 6:05 AM EDT 1. Numerous mildly prominent fluid-filled small bowel loops in the lower abdomen and pelvis without isra dilatation or discrete transition point, which may be related to recent laxative use in the setting of reported constipation and moderate stool residual throughout the colon, versus a nonspecific enteritis. 2. Otherwise no acute abnormality in the abdomen or pelvis. ATTESTATION: I, Hang Allen as teaching physician, have reviewed the images for this case and if necessary edited the report originally created by Cheryl Palomo. Narrative 02/12/2025 6:[address] ABDOMEN/PELVIS WITH CONTRAST Referring clinician's provided indication for this examination in Epic: * Abdominal distension; * Abdominal pain, acute, nonlocalized TECHNIQUE: Multidetector-row CT of the abdomen and pelvis was performed after administration of intravenous contrast using tailored dose modulation techniques. Images were reconstructed in the axial, coronal, and sagittal planes. COMPARISON: US KIDNEYS FINDINGS: Lower Chest: No consolidation or pleural effusions. Bibasilar subsegmental atelectasis. Liver: No focal lesions. Biliary: No calcified gallstones. No biliary ductal dilatation. Spleen: No splenomegaly or focal lesions. Pancreas: No masses or ductal dilatation. Adrenal Glands: No nodules. Kidneys/Ureters: No solid masses, stones, or hydronephrosis. Bowel: Prior appendectomy. Numerous mildly prominent fluid-filled small bowel bowel loops in the lower abdomen and pelvis without isra dilatation or discrete transition point. Moderate stool throughout the colon. Colonic diverticulosis without diverticulitis. Peritoneum/Retroperitoneum: No masses, pneumoperitoneum, or fluid. Lymph Nodes: No lymphadenopathy. Pelvic Organs/Bladder: No mass. Vessels: No abdominal aortic aneurysm. Overall mild atherosclerosis. Bones/Soft Tissues: Grade 1 spondylolisthesis of L5 on S1 with bilateral pars defects. Mild degenerative changes of the spine and SI joints. Procedure Note Hang Allen MD - 02/12/2025 CT ABDOMEN/PELVIS WITH CONTRAST Referring clinician's provided indication for this examination in Epic: *Abdominal distension; * Abdominal pain, acute, nonlocalized TECHNIQUE: Multidetector-row CT of the abdomen and pelvis was performedafter administration of intravenous contrast using tailored dosemodulation techniques. Images were reconstructed in the axial, coronal,and sagittal planes. COMPARISON: US KIDNEYS FINDINGS: Lower Chest: No consolidation or pleural effusions. Bibasilar subsegmentalatelectasis. Liver: No focal lesions. Biliary: No calcified gallstones. No biliary ductal dilatation. Spleen: No splenomegaly or focal lesions. Pancreas: No masses or ductal dilatation. Adrenal Glands: No nodules. Kidneys/Ureters: No solid masses, stones, or hydronephrosis. Bowel: Prior appendectomy. Numerous mildly prominent fluid-filled smallbowel bowel loops in the lower abdomen and pelvis without isra dilatationor discrete transition point. Moderate stool throughout the colon. Colonicdiverticulosis without diverticulitis. Peritoneum/Retroperitoneum: No masses, pneumoperitoneum, or fluid. Lymph Nodes: No lymphadenopathy. Pelvic Organs/Bladder: No mass. Vessels: No abdominal aortic aneurysm. Overall mild atherosclerosis. Bones/Soft Tissues: Grade 1 spondylolisthesis of L5 on S1 with bilateralpars defects. Mild degenerative changes of the spine and SI joints. IMPRESSION: 1. Numerous mildly prominent fluid-filled small bowel loops in the lowerabdomen and pelvis without isra dilatation or discrete transition point,which may be related to recent laxative use in the setting of reportedconstipation and moderate stool residual throughout the colon, versus anonspecific enteritis. 2. Otherwise no acute abnormality in the abdomen or pelvis. ATTESTATION: I, Hang Allen as teaching physician, have reviewed theimages for this case and if necessary edited the report originally createdby Cheryl Palomo. us José Miguel Taylor DO IMG CT ABD/PELVIS Final Resul t * Hemoglobin A1c (01/25/2025 9:18 AM EDT) HEMOGLOBIN A1C 5.7 4.3 - 5.8 % [facility] Blood 01/25/2025 9:18 AM EDT 01/25/2025 10:00 AM EDT us Sharonda Caicedo MD LAB BLOOD ORDERABLES Jenna l Result [facility] [address] [place] [address] * (ABNORMAL) Lipid panel (01/25/2025 9:18 AM EDT) HDL 69 mg/dL [facility] Comment: Interpretation <40 mg/dL: Low HDL cholesterol (major risk factor for CHD) Greater than or equal to 60 mg/dL: High HDL cholesterol ( negative risk factor for CHD) HDL - cholesterol is affected by a number of factors, e.g. smoking, excerise, hormones, sex and age. CHOLESTEROL 256(H) 0 - 240 mg/dL [facility] TRIGLYCERIDES 74 30 - 160 mg/dL [facility] LDL 172(H) 50 - 129 mg/dL [facility] Comment: LDL levels in terms of risk for coronary heart disease: <100 mg/dL: Optimal 100-129 mg/dL: Near or above optimal 130-159 mg/dL: Borderline high 160-189 mg/dL: High >190 mg/dL: Very High CARDIAC RISK RATIO 3.7 3.4 - 5.0 [facility] Blood 01/25/2025 9:18 AM EDT 01/25/2025 10:00 AM EDT us Sharonda Caicedo MD LAB BLOOD ORDERABLES Jenna l Result [facility] [address] [place] [address] * COLONOSCOPY FOR RESULT ENTRY ONLY (01/13/2018) us Naina Provider HEALTH MAINTENANCE Final Result from Last 3 Months or Most Recently Relevant to Health Maintenance Insurance [employer] Advance Directives For more information, please contact: [phone] (9AM - 5PM [facility], Wednesday-Wednesday) * Full Code (Latest Code Status on File) Date Activated Date Inactivated Comments 02/13/2025 8:22 AM Question Answer Comments Code Status Confirmed With: Patient Care Teams Bridge Contractor Relationship Specialty Start Date End Date Sharonda Caicedo MD [address] [facility], [address] [place] [address] PCP - General Family Medicine 08/11/21 Damir [place] MD [address] [facility] [address] [place] [id number] [email or web address] Historical LMR Provider 05/09/17 Vipin Madsen DO [address] [place] [address], [address] [place] [address] [email or web address] Historical LMR Provider 05/09/17 Esteban Meredith MD [email or web address] Historical LMR Provider 05/09/17 Additional Source Comments The information contained in this document represents components of the legal health record. It is not the complete legal health record.[facility]
--- OUTSIDE RECORDS SUMMARY | 2025-03-28 15:25 | XMS_ITS | Encounter Summary ---
Author Organization [facility] Address [address] [place] [address] [place] [address] Phone Care Team Providers Care Municipal Firefighter Name Role Phone Iker Pierre MD Unavailable Damir [place] MD Unavailable Marilyn William USED CAR SALESPERSON Unavailable [phone] Vipin Madsen DO Unavailable Majo Rose USED CAR SALESPERSON Unavailable Esteban Meredith MD Unavailable [email or web address] Sunil [place] MD Unavailable Yris Vizcaino TEST FIXTURE ASSEMBLER Unavailable Brent [place] MD Unavailable [phone] Eloina Fernandes USED CAR SALESPERSON Unavailable Lexy Munguia MD Unavailable [phone] Damir [place] MD Primary Care Provider [phone] Damir [place] MD Unavailable [phone] Sharonda Caicedo MD Primary Care Provider Iwona Bustamante MD Unavailable [phone] Sharonda Caicedo MD Unavailable [phone] Encounter Details Date Type Department Care Team (Latest Contact Info) Description 05/09/2019 Transcribe Orders [facility] [address] [place] [address] Molina Kulkarni MD Critical access hospital0 [facility], [address] [place] [address] [email or web address] Enlarged prostate with urinary obstruction (Primary Dx) [...] Description 02/17/2025 11:59 PM EDT Anesthesia Event [facility] [address] [place] [address] Arturo Balderas MD [address] [place] [address] [email or web address] 04/18/2025 10:30 AM EDT Office Visit [address] [address] Sharonda Caicedo MD [address] [facility], [address] [place] [address] [email or web address] documented as of this encounter Procedures Procedure Name Priority Date/Time Associated Diagnosis Comments PSA (SCREENING) Routine 05/09/2019 10:39 AM EDT Enlarged prostate with urinary obstruction documented in this encounter Results * PSA (screening) (05/09/2019 10:39 AM EDT) PSA 1.33 0 - 4.00 ng/mL [facility] Blood 05/09/2019 10:3 9 AM EDT 05/09/2019 10:42 AM EDT us Molina Kulkarni MD LAB BLOOD ORDERABLES Final Resu lt [facility] [address] [place] [address] documented in this encounter Visit Diagnoses Diagnosis [...] documented as of this encounter Care Teams Municipal Firefighter Relationship Specialty Start Date End Date Damir [place] MD [address] [place] [address] [address] [place] [phone] [email or web address] PCP - General 05/20/17 08/10/21 Sharonda Caicedo MD [address] [place] [address] [address] [place] [address] [email or web address] PCP - General Family Medicine 08/11/21 Iker Pierre MD [address] [place] [address] Historical LMR Provider 05/09/17 07/26/21 Damir [place] MD [address] [place] [address] [address] [place] [phone] [email or web address] Historical LMR Provider 05/09/17 Marilyn William NP [address] [place] [address] Historical LMR Provider 05/09/17 2 Vipin Madsen DO [address] [place] [address] [address] [place] [address] [email or web address] Historical LMR Provider 05/09/17 Majo Rose NP [address] [place] [address] Historical LMR Provider 05/09/17 2 Esteban Meredith MD [email or web address] Historical LMR Provider 05/09/17 Sunil [place] MD [address] [place] [address] Historical LMR Provider 05/09/17 Yris Vizcaino FNP [address] [place] [address] [address] [place] [address] [email or web address] Historical LMR Provider 05/09/17 07/26/21 Brent [place] MD [address] [place] [phone] [email or web address] Historical LMR Provider 05/09/17 07/26/21 Eloina [place] NP [address] [place] [address] Historical LMR Provider 05/09/17 Lexy Correa MD [address] [place] [address], [address] [place] [address] [email or web address] Historical LMR Provider 05/09/17 07/26/21 Damir [place] MD [address] [place] [address] [address] [place] [id number] [email or web address] Insurance Assigned Provider 11/19/18 12/27/21 Iwona Bustamante MD [address] [place] [address], [address] [place] [address] [email or web address] Insurance Assigned Provider 12/27/21 10/24/22 Sharonda Caicedo MD [address] [place] [address], [address] [place] [address] [email or web address] Insurance Assigned Provider 11/21/22 12/26/22 documented as of this encounter Additional Source Comments The information contained in this document represents components of the legal health record. It is not the complete legal health record.[facility]
--- OUTSIDE RECORDS SUMMARY | 2025-03-28 15:25 | XMS_ITS | Encounter Summary ---
Author Organization [facility] Address [address] [place] [address] Phone Care Team Providers Care Karate Instructor Name Role Phone Damir Orlando MD Unavailable [phone] Vipin Madsen DO Unavailable Esteban Meredith MD Unavailable [email or web address] Sharonda Caicedo MD Primary Care Provider [phone] Encounter Details Date Type Department Care Team (Late st Contact Info) Description 02/12/2025 Telephone [facility] [address] [place] [address] Sharonda Caicedo MD [address] [place] [address], [address] [place] [address] [email or web address] Social History Tobacco Use Types Packs/Day Years [...] AM EST documented as of this encounter Functional Status * Calculated C-SSRS Risk Score (Lifetime/Recent) Answer Date of Assessment Author No Risk Indicated 02/13/2025 2:37 AM EDT Nhi Main RN * [place] Suicide Severity Rating Scale (Screener/Recent Self-Report) Question Answer Date of Assessment Author 1. Wish to be (Past 1 Month) No 02/13/2025 2:37 AM EDT Nhi Salguero RN 2. Non-Specific Active Suicidal Thoughts (Past 1 Month) No 02/13/2025 2:37 AM EDT Nhi Salguero RN 3. Active Suicidal Ideation with any Methods (Not Plan) Without Intent to Act (Past 1 Month) Yes 02/12/2025 5:52 PM EDT Kaelyn Barragan RN 4. Active Suicidal Ideation with Some Intent to Act, Without Specific Plan (Past 1 Month) No 02/12/2025 5:52 PM EDT Kaelyn Barragan RN 5. Active Suicidal Ideation with Specific Plan and Intent (Past 1 Month) No 02/12/2025 5:52 PM EDT Kaelyn Barragan RN 6. Suicidal Behavior (Lifetime) No 02/13/2025 2:37 AM EDT Nhi Salguero RN documented as of this encounter Plan of Treatment Upcoming Encounters Date Type Department Care Team (Late st Contact Info) Description 02/17/2025 11:59 PM EDT Anesthesia Event [facility] [address] [place] [address] Arturo Balderas MD 30 [place] [address] [email or web address] 04/18/2025 10:30 AM EDT Office Visit [facility] [address] [place] [address] Sharonda Caicedo MD 234 [facility] 7 [place] [address] documented as of this encounter Visit Diagnoses Not on filedocumented in this encounter Additional Health Concerns Assessment Noted Time PHQ-2 Depression Total Score: 2 01/02/20 25 3:37 PM EDT documented as of this encounter Care Teams Karate Instructor Relationship Specialty Start Date End Date Sharonda Caicedo MD [address] [place] [address] 7 [place] [address] [email or web address] PCP - General Family Medicine 08/11/21 Damir Orlando MD [address] [place], [place] [address] [place] [address] [email or web address] Historical LMR Provider 05/09/17 Vipin Madsen DO [address] [place] [address] 7 [place] [address] [email or web address] Historical LMR Provider 05/09/17 Esteban Meredith MD [email or web address] Historical LMR Provider 05/09/17 documented as of this encounter Additional Source Comments The information contained in this document represents components of the legal health record. It is not the complete legal health record.[facility]
--- OUTSIDE RECORDS SUMMARY | 2025-03-28 15:25 | XMS_ITS | Encounter Summary ---
Author Organization [facility] Address [address] [place] [address] [place] [address] Phone Care Team Providers Care Pharmacy Aide Name Role Phone Iker Pierre MD Unavailable Damir Orlando MD Unavailable Marilyn William GREIGE GOODS EXAMINER Unavailable [phone] Vipin Madsen DO Unavailable Majo Rose GREIGE GOODS EXAMINER Unavailable Esteban Meredith MD Unavailable [email or web address] Sunil Monroe MD Unavailable Yris Vizcaino HYDRODYNAMICIST Unavailable Brent Orlando MD Unavailable [phone] Eloina Fernandes GREIGE GOODS EXAMINER Unavailable Lexy Munguia MD Unavailable [phone] Damir Orlando MD Primary Care Provider [phone] Damir Orlando MD Unavailable [phone] Sharonda Caicedo MD Primary Care Provider Iwona Bustamante MD Unavailable [phone] Sharonda Caicedo MD Unavailable [phone] Encounter Details Date Type Department Care Team (Latest Contact Info) Description 01/20/2019 Transcribe Orders Virtual Department 30 [place] [address] Sera Hurt PA [address] [address] [email or web address] Calculus of kidney (Primary Dx) Social History Tobacco Use Types [...] Description 02/17/2025 11:59 PM EDT Anesthesia Event [address] [address] Arturo Balderas MD 30 [place] [address] 04/18/2025 10:30 AM EDT Office Visit [address] [address] Sharonda Caicedo MD [address] [place] [address], [facility] 7 [place] [address] documented as of this encounter Results * US Kidneys (05/02/2019 9:08 AM EDT) Anatomical Region Laterality Modality Abdomen, Kidney Ultrasound 05/02/2019 1:29 PM EDT Impressions 05/02/2019 1:33 PM EDT Normal renal ultrasound. No renal calculi. POS - [id number] Narrative 05/02/2019 1:33 PM EDT EXAM: US KIDNEYS HISTORY: CALCULUS OF KIDNEY TECHNIQUE: Grayscale and color Doppler ultrasound imaging of the kidneys. COMPARISON: 03/03/2018 renal ultrasound. FINDINGS: RIGHT KIDNEY: Normal renal size. Measures 10.7 x 4.5 cm. Cortical echogenicity is normal. Normal cortical thickness. There is no hydronephrosis. There are no shadowing calculi. LEFT KIDNEY: Normal renal size. Measures 10.9 x 6.3 cm. Cortical echogenicity is normal. Normal cortical thickness. There is no hydronephrosis. There are no shadowing calculi. Procedure Note Dayana Lowery MD - 05/02/2019 EXAM: US KIDNEYS HISTORY: CALCULUS OF KIDNEY TECHNIQUE: Grayscale and color Doppler ultrasound imaging of thekidneys. COMPARISON: 03/03/2018 renal ultrasound. FINDINGS: RIGHT KIDNEY: Normal renal size. Measures 10.7 x 4.5 cm. Corticalechogenicity is normal. Normal cortical thickness. There is nohydronephrosis. There are no shadowing calculi. LEFT KIDNEY: Normal renal size. Measures 10.9 x 6.3 cm. Corticalechogenicity is normal. Normal cortical thickness. There is nohydronephrosis. There are no shadowing calculi. IMPRESSION: Normal renal ultrasound. No renal calculi. POS - [id number] us Sera COX IMG US RENAL Final Resu lt documented in this encounter Visit Diagnoses Diagnosis Calculus of kidney- Primary Calculus of kidney documented in this encounter Additional Health Concerns Infection Onset Date Last Indicated Resolved Time CoV-Exposed Comment:Recent close contact 07/25/2020 07/25/2020 08/08/2020 1:24 AM EST CoV-Risk Comment:Per Ambulatory Triage Form 09/10/2022 09/10/202209/10 2:22 PM EST CoV-Presumed 09/10/2022 09/10/2022 10/01/2022 1:22 AM EDT CoV-Risk Comment:Per Ambulatory Triage Form 03/06/2024 03/06/2024 08/30 /2024 1:22 AM EDT documented as of this encounter Care Teams Pharmacy Aide Relationship Specialty Start Date End Date Damir Orlando MD [address] [place] [address] [address] [place] [phone] [email or web address] PCP - General 05/20/17 08/10/21 Sharonda Caicedo MD [address] [place] [address] 7 [place] [address] PCP - General Family Medicine 08/11/21 Iker Pierre MD [address] [place] [address] Historical LMR Provider 05/09/17 07/26/21 Damir Orlando MD [address] [place] [address] [address] [place] [address] [email or web address] Historical LMR Provider 05/09/17 Marilyn William GREIGE GOODS EXAMINER 1 [place] [address] Historical LMR Provider 05/09/17 2 Vipin Madsen DO [address] [place] [address] 7 [place] [address] Historical LMR Provider 05/09/17 Majo Rose NP [address] [place] [address] Historical LMR Provider 05/09/17 2 Esteban Meredith MD [email or web address] Historical LMR Provider 05/09/17 Sunil Monroe MD [address] [place] [address] Historical LMR Provider 05/09/17 Yris Vizcaino FNP [address] [place] [address] 7 [place] [address] Historical LMR Provider 05/09/17 07/26/21 Brent Orlando MD [address] [place] [address] 7 [place] [phone] [email or web address] Historical LMR Provider 05/09/17 07/26/21 Eloina Fernandes NP [address] [place] [address] Historical LMR Provider 05/09/17 2 Lexy Munguia MD [address] [place] [address] 7 [place] [address] Historical LMR Provider 05/09/17 07/26/21 Damir Orlando MD [address] [place], [place] [address] [place] [address] [email or web address] Insurance Assigned Provider 11/19/18 12/27/21 Iwona Bustamante MD [address] [place] [address] 7 [place] [address] Insurance Assigned Provider 12/27/21 10/24/22 Sharonda Caicedo MD [address] [place] [address] 7 [place] [address] Insurance Assigned Provider 11/21/22 12/26/22 documented as of this encounter Additional Source Comments The information contained in this document represents components of the legal health record. It is not the complete legal health record.[facility]
--- OUTSIDE RECORDS SUMMARY | 2025-03-28 15:25 | XMS_ITS | Encounter Summary ---
Author Organization [facility] Address [address] [place] [address] Phone Care Team Providers Care Rigging Worker Name Role Phone Damir Orlando MD Unavailable Vipin Madsen DO Unavailable Esteban Meredith MD Unavailable [email or web address] Sharonda Caicedo MD Primary Care Provider [phone] Encounter Details Date Type Department Care Team (Late st Contact Info) Description 02/18/2025 Procedure Pass OR Admitting Dept - Virtual Department [address] [place] [address] Social History Tobacco Use Types Packs/Day Years [...] your housing situation today? I have mekhi amezcua 02/14/2025 How many times have you move [...] Description 02/17/2025 11:59 PM EDT Anesthesia Event [facility] 234 [place] [address] Arturo Balderas MD 30 [place] [address] [email or web address] 04/18/2025 10:30 AM EDT Office Visit [facility] 234 [place] [address] Sharonda Caicedo MD 234 [facility] 7 [place] [address] [email or web address] documented as of this encounter Visit Diagnoses Not on filedocumented in this encounter Additional Health Concerns Assessment Noted Time PHQ-2 Depression Total Score: 2 01/02/20 25 3:37 PM EDT documented as of this encounter Care Teams Rigging Worker Relationship Specialty Start Date End Date Sharonda Caicedo MD [address] [place] [address] 7 [place] [address] [email or web address] PCP - General Family Medicine 08/11/21 Damir Orlando MD [address] [place], [place] [address] [place] [address] [email or web address] Historical LMR Provider 05/09/17 Vipin Madsen DO [address] [place] [address] 7 [place] [address] [email or web address] Historical LMR Provider 05/09/17 Esteban Meredith MD [email or web address] Historical LMR Provider 05/09/17 documented as of this encounter Additional Source Comments The information contained in this document represents components of the legal health record. It is not the complete legal health record.[facility]
--- OUTSIDE RECORDS SUMMARY | 2025-03-28 15:25 | XMS_ITS | Encounter Summary ---
Author Organization [facility] Address [address] [place] [address] [place] [address] Phone Care Team Providers Care Trade Clerk Name Role Phone Iker Pierre MD Unavailable Damir Orlando MD Unavailable Marilyn William SHOE STITCHER Unavailable [phone] Vipin Madsen DO Unavailable Majo Rose SHOE STITCHER Unavailable Esteban Meredith MD Unavailable [email or web address] Sunil Monroe MD Unavailable Yris Vizcaino SOFTWARE TEST DEVELOPER Unavailable Brent Orlando MD Unavailable [phone] Eloina Fernandes SHOE STITCHER Unavailable Lexy Munguia MD Unavailable [phone] Damir Orlando MD Primary Care Provider [phone] Damir Orlando MD Unavailable Sharonda Caicedo MD Primary Care Provider Iwona Bustamante MD Unavailable Sharonda Caicedo MD Unavailable Reason for Visit * Reason Onset Date Comments medication refill to new mail order pharmacy 08/2018 Encounter Details Date Type Department Care Team (Late st Contact Info) Description 01/17/2019 Telephone [employer] [facility] [address] [place] [address] Damir Orlando MD [address] [place] [address] [email or web address] medication refill to new mail order pharmacy Social History Tobacco Use Types Packs/Day Years Used Date Smoking Tobacco: Never Smokeless Tobacco: Never Sex and Gender Information Value Date Recorded Sex Assigned at Male 05/27/2020 10:25 AM EST Legal Sex Male 9:52 PM EDT Gender Identity Male 05/27/2020 10:25 AM EST Sexual Orientation Straight 05/27/2020 10 :25 AM EST documented as of this encounter Progress Notes * Damir Orlando MD - 01/18/2019 2:58 PM EDT Please fix these prescriptions, I am unable to sign * Isabel Be MA - 01/18/2019 2:38 PM EDT NON-PROTOCOL MEDICATION REFILL Last office visit: 07/05/18 Next office visit: Visit date not found * Isabel Be MA - 01/18/2019 2:38 PM EDT HYPERTENSION MEDICATION REFILL Last office visit: Visit date not found Next office visit: Visit date not found Last BMP/CMP: Lab Results Component Value Date NA 140 04/07/2018 K 4.3 04/07/2018 CL 101 04/07/2018 CO2 25 04/07/2018 BUN 14 04/07/2018 CRE 1.10 04/07/2018 GLU 112 (H) 04/07/2018 CA 9.4 04/07/2018 GFR 73 04/07/2018 ANION 18 04/07/2018 Last BP readings: BP Readings from Last 3 Encounters: 11/03/18 136/74 07/07/18 162/80 07/05/18 140/76 * Isabel Be MA - 01/18/2019 2:37 PM EDT GERD MEDICATION REFILL Last office visit: Visit date not found Next office visit: Visit date not found * Griselda Lipscomb - 01/17/2019 4:39 PM EDT I have updated the mail order pharmacy in [facility] to be for [facility] Patient needs Rx refill for these medications He states only has 8 or 9 left of each - will need enough to last until mail order comes in sent [facility] and remainder to go through [employer] [facility] mail order Please contact patient when completed [phone] documented in this encounter Plan of Treatment Upcoming Encounters Date Type Department Care Team (Late st Contact Info) Description 02/17/2025 11:59 PM EDT Anesthesia Event [facility] [address] [place] [address] Arturo Balderas MD 30 [place] [address] [email or web address] 04/18/2025 10:30 AM EDT Office Visit [facility] [address] [place] [address] Sharonda Caicedo MD [address] [place] [address] 7 [place] [address] documented as of this encounter Visit Diagnoses Diagnosis Psoriatic arthritis Psoriatic arthropathy Lower leg edema Essential hypertension Unspecified essential hypertension Gastroesophageal reflux disease Esophageal reflux documented in this encounter Additional Health Concerns Infection Onset Date Last Indicated Resolved Time CoV-Exposed Comment:Recent close contact 07/25/2020 07/25/2020 08/08/2020 1:24 AM EST CoV-Risk Comment:Per Ambulatory Triage Form 09/10/2022 09/10/202209/10 2:22 PM EST CoV-Presumed 09/10/2022 09/10/2022 10/01/2022 1:22 AM EDT CoV-Risk Comment:Per Ambulatory Triage Form 03/06/2024 03/06/202403/17 1:22 AM EDT documented as of this encounter Care Teams Trade Clerk Relationship Specialty Start Date End Date Damir Orlando MD [address] [place] [address] [address] [place] [address] [email or web address] PCP - General 05/20/17 08/10/21 Sharonda Caicedo MD [address] [place] [address] 7 [place] [address] [email or web address] PCP - General Family Medicine 08/11/21 Iker Pierre MD [address] [place] [address] Historical LMR Provider 05/09/17 07/26/21 Damir Orlando MD [address] [place] [address] [address] [place] [address] Historical LMR Provider 05/09/17 Marilyn William SHOE STITCHER 1 [facility] [place] [address] Historical LMR Provider 05/09/17 2 Vipin Madsen DO [address] [place] [address] 7 [place] [address] [email or web address] Historical LMR Provider 05/09/17 Majo Rose, VANESSA [address] [place] [address] Historical LMR Provider 05/09/17 2 Esteban Meredith MD [email or web address] Historical LMR Provider 05/09/17 Sunil Monroe MD [address] [place] [address] Historical LMR Provider 05/09/17 Yris Vizcaino FNP [address] [place] [address] [email or web address] Historical LMR Provider 05/09/17 07/26/21 Brent Orlando MD [address] [place] [phone] [email or web address] Historical LMR Provider 05/09/17 07/26/21 Eloina Fernandes NP [address] [place] [address] Historical LMR Provider 05/09/17 2 Lexy Munguia MD [address] [place] [address] [email or web address] Historical LMR Provider 05/09/17 07/26/21 Damir Orlando MD [address] [place] [address] [address] [place] [phone] [email or web address] Insurance Assigned Provider 11/19/18 12/27/21 Iwona Bustamante MD [address] [place] [address], [address] [place] [address] [email or web address] Insurance Assigned Provider 12/27/21 10/24/22 Sharonda Caicedo MD [address] [place] [address], [address] [place] [address] [email or web address] Insurance Assigned Provider 11/21/22 12/26/22 documented as of this encounter Additional Source Comments The information contained in this document represents components of the legal health record. It is not the complete legal health record.[facility]
--- OUTSIDE RECORDS SUMMARY | 2025-03-28 15:25 | XMS_ITS | Encounter Summary ---
Author Organization [facility] Address [address] [place] [address] Phone Care Team Providers Care Air Bag Builder Name Role Phone Damir Orlando MD Unavailable [phone] Vipin Madsen DO Unavailable Esteban Meredith MD Unavailable [email or web address] Sharonda Caicedo MD Primary Care Provider [phone] Encounter Details Date Type Department Care Team (Late st Contact Info) Description 02/15/2025 Procedure Pass [facility], [facility] Scan - [address] [address] Social History Tobacco Use Types Packs/Day Years [...] Description 02/17/2025 11:59 PM EDT Anesthesia Event [facility] [address] [place] [address] Arturo Balderas MD 30 [place] [address] [email or web address] 04/18/2025 10:30 AM EDT Office Visit [facility] [address] [place] [address] Sharonda Caicedo MD 234 [facility] 7 [place] [address] [email or web address] documented as of this encounter Visit Diagnoses Not on filedocumented in this encounter Additional Health Concerns Assessment Noted Time PHQ-2 Depression Total Score: 2 01/02/20 25 3:37 PM EDT documented as of this encounter Care Teams Air Bag Builder Relationship Specialty Start Date End Date Sharonda Caicedo MD [address] [place] [address] [email or web address] PCP - General Family Medicine 08/11/21 Damir Orlando MD [address] [place], [place] [address] [place] [address] [email or web address] Historical LMR Provider 05/09/17 Vipin Madsen DO [address] [place] [address] 7 [place] [address] [email or web address] Historical LMR Provider 05/09/17 Esteban Meredith MD [email or web address] Historical LMR Provider 05/09/17 documented as of this encounter Additional Source Comments The information contained in this document represents components of the legal health record. It is not the complete legal health record.[facility]
--- OUTSIDE RECORDS SUMMARY | 2025-03-28 15:25 | XMS_ITS | Encounter Summary ---
Author Organization [facility] Address [address] [place] [address] Phone Care Team Providers Care Technician Terminal And Repeater Name Role Phone Damir Orlando MD Unavailable [phone] Vipin Madsen DO Unavailable Esteban Meredith MD Unavailable [email or web address] Sharonda Caicedo MD Primary Care Provider [phone] Encounter Details Date Type Department Care Team (Late st Contact Info) Description 02/12/2025 Procedure Pass [facility], Ct Scan - [address] [address] Social History Tobacco Use Types Packs/Day Years [...] 2:37 AM EDT Nhi Main RN * [place] Suicide Severity Rating Scale (Screener/Recent Self-Report) Question [...] Description 02/17/2025 11:59 PM EDT Anesthesia Event [facility] [address] [place] [address] Arturo Balderas MD [address] [place] [address] [email or web address] 04/18/2025 10:30 AM EDT Office Visit [address] [address] Sharonda Caicedo MD [address] [place] [address] [email or web address] documented as of this encounter Visit Diagnoses Not on filedocumented in this encounter Additional Health Concerns Assessment Noted Time PHQ-2 Depression Total Score: 2 01/02/20 25 3:37 PM EDT documented as of this encounter Care Teams Technician Terminal And Repeater Relationship Specialty Start Date End Date Sharonda Caicedo MD [address] [place] [address] [email or web address] PCP - General Family Medicine 08/11/21 Damir Orlando MD [address] [place] [address] [address] [place] [phone] [email or web address] Historical LMR Provider 05/09/17 Vipin Madsen DO [address] [place] [address] [address] [place] [address] [email or web address] Historical LMR Provider 05/09/17 Esteban Meredith MD [email or web address] Historical LMR Provider 05/09/17 documented as of this encounter Additional Source Comments The information contained in this document represents components of the legal health record. It is not the complete legal health record.[facility]
--- OUTSIDE RECORDS SUMMARY | 2025-03-28 15:26 | XMS_ITS | Encounter Summary ---
Author Organization [facility] Address [address] [place] [address] [place] [address] Phone Care Team Providers Care Belt Loop Maker Name Role Phone Iker Pierre MD Unavailable Damir Orlando MD Unavailable Marilyn William VETERINARY TOXICOLOGIST Unavailable Vipin Madsen DO Unavailable Majo Rose VETERINARY TOXICOLOGIST Unavailable Esteban Meredith MD Unavailable [email or web address] Sunil Monroe MD Unavailable Yris Vizcaino MANAGER OF FINANCIAL REPORTING Unavailable Brent Orlando MD Unavailable [phone] Eloina Fernandes VETERINARY TOXICOLOGIST Unavailable Lexy Munguia MD Unavailable [phone] Damir Orlando MD Primary Care Provider [phone] Damir Orlando MD Unavailable Sharonda Caicedo MD Primary Care Provider Iwona Bustamante MD Unavailable Sharonda Caicedo MD Unavailable Encounter Details Date Type Department Care Team (Late st Contact Info) Description 11/15/2017 Transcribe Orders [facility] [address] [place] [address] Damir Orlando MD [address] [facility] [place] [address] [email or web address] Social History Tobacco Use Types Packs/Day Years [...] Upcoming Encounters Date Type Department Care Team ([facility] Contact Info) Description 02/17/2025 11:59 PM EDT Anesthesia Event [facility] [address] [place] [address] Arturo Balderas MD 30 [place] [address] [email or web address] 04/18/2025 10:30 AM EDT Office Visit [facility] [place] [facility] [address] [place] [address] Sharonda Caicedo MD [address] [facility], [address] [place] [address] [email or web address] documented as of this encounter Visit Diagnoses Not on filedocumented in this encounter Additional Health Concerns Infection Onset Date Last Indicated Resolved Time CoV-Exposed Comment:Recent close contact 07/25/2020 07/25/2020 08/08/2020 1:24 AM EST CoV-Risk Comment:Per Ambulatory Triage Form 09/10/2022 09/10/202209/10 2:22 PM EST CoV-Presumed 09/10/2022 09/10/2022 10/01/2022 1:22 AM EDT CoV-Risk Comment:Per Ambulatory Triage Form 03/06/2024 03/06/202403/17 1:22 AM EDT documented as of this encounter Care Teams Belt Loop Maker Relationship Specialty Start Date End Date Damir Orlando MD [address] [place] [address] [address] [place] [phone] PCP - General 05/20/17 08/10/21 Sharonda Caicedo MD [address] [place] [address] [address] [place] [address] [email or web address] PCP - General Family Medicine 08/11/21 Iker Pierre MD [address] [place] [address] Historical LMR Provider 05/09/17 07/26/21 Damir Orlando MD [address] [place] [address] [address] [place] [phone] Historical LMR Provider 05/09/17 Marilyn William NP [address] [place] [address] Historical LMR Provider 05/09/17 2 Vipin Madsen DO [address] [place] [address] 7 [place] [address] Historical LMR Provider 05/09/17 Majo Rose NP [address] [place] [address] Historical LMR Provider 05/09/17 2 Esteban Meredith MD [email or web address] Historical LMR Provider 05/09/17 Sunil Monroe MD [address] [place] [address] Historical LMR Provider 05/09/17 Yris Vizcaino FNP [address] [place] [address] [address] [place] [address] [email or web address] Historical LMR Provider 05/09/17 07/26/21 Brent Orlando MD [address] [place] [address] 7 [place] [phone] [email or web address] Historical LMR Provider 05/09/17 07/26/21 Eloina Fernandes, VANESSA [address] [place] [address] Historical LMR Provider 05/09/17 2 Lexy Munguia MD [address] [place] [address] 7 [place] [address] [email or web address] Historical LMR Provider 05/09/17 07/26/21 Damri Orlando MD [address] [place], [place] [address] [place] [phone] [email or web address] Insurance Assigned Provider 11/19/18 12/27/21 Iwona Bustamante MD [address] [place] [address] 7 [place] [phone] Insurance Assigned Provider 12/27/21 10/24/22 Sharonda Caicedo MD [address] [place] [address], [address] [place] [phone] [email or web address] Insurance Assigned Provider 11/21/22 12/26/22 documented as of this encounter Additional Source Comments The information contained in this document represents components of the legal health record. It is not the complete legal health record.[facility]
--- OUTSIDE RECORDS SUMMARY | 2025-03-28 15:26 | XMS_ITS | Encounter Summary ---
Author Organization [facility] Address [address] [place] [address] [place] [address] Phone Care Team Providers Care Job Lithographer Name Role Phone Iker Pierre MD Unavailable [phone] Damir Orlando MD Unavailable Marilyn William WATERSHED MANAGER Unavailable Vipin Madsen DO Unavailable Majo Rose WATERSHED MANAGER Unavailable Esteban Meredith MD Unavailable [email or web address] Sunil Monroe MD Unavailable Yris Vizcaino DIRECTOR OF RADIO SERVICES Unavailable Brent Orlando MD Unavailable [phone] Eloina Fernandes WATERSHED MANAGER Unavailable Lexy Munguia MD Unavailable [phone] Damir Orlando MD Primary Care Provider [phone] Damir Orlando MD Unavailable Sharonda Caicedo MD Primary Care Provider Iwona Bustamante MD Unavailable Sharonda Caicedo MD Unavailable Encounter Details Date Type Department Care Team (Late st Contact Info) Description 01/21/2018 Ancillary Orders Virtual Department 30 [place] [address] Sera Hurt PA [address] [address] [email or web address] Calculus of ureter Social History Tobacco Use Types Packs/Day Years [...] Encounters Date Type Department Care Team (Late Contact Info) Description 02/17/2025 11:59 PM EDT Anesthesia Event [address] [address] Arturo Balderas MD 30 [place] [address] 04/18/2025 10:30 AM EDT Office Visit [address] [address] Sharonda Caicedo MD [address] [place] [address] 7 [place] [address] documented as of this encounter Results * US Kidneys (03/03/2018 8:29 AM EDT) Anatomical Region Laterality Modality Abdomen, Kidney Ultrasound 03/03/2018 8:31 AM EDT Impressions 03/03/2018 8:32 AM EDT No evidence of nephrolithiasis. POS [id number] Narrative 03/03/2018 8:32 AM EDT COMPARISON: CT abdomen pelvis 01/07/2018 and renal ultrasound 02/19/2017. RENAL ULTRASOUND FINDINGS: Right kidney measures 11 x 4 cm. Left kidney measures 11 x 5 cm. No solid masses, hydronephrosis or calculi. Cortical echogenicity and thickness are normal. No perinephric fluid collections. Procedure Note Marva Zarate MD - 03/03/2018 COMPARISON: CT abdomen pelvis 01/07/2018 and renal hhfachnupi12/04/2017. RENAL ULTRASOUND FINDINGS: Right kidney measures 11 x 4 cm. Left kidney measures 11 x 5 cm. No solidmasses, hydronephrosis or calculi. Cortical echogenicity and thicknessare normal. No perinephric fluid collections. IMPRESSION: No evidence of nephrolithiasis. POS [id number] us Sera Hurt PA IMG US RENAL Final Resu lt documented in this encounter Visit Diagnoses Diagnosis Calculus of ureter Calculus of ureter documented in this encounter Additional Health Concerns Infection Onset Date Last Indicated Resolved Time CoV-Exposed Comment:Recent close contact 07/25/2020 07/25/2020 08/08/2020 1:24 AM EST CoV-Risk Comment:Per Ambulatory Triage Form 09/10/2022 09/10/202209/10 2:22 PM EST CoV-Presumed 09/10/2022 09/10/2022 10/01/2022 1:22 AM EDT CoV-Risk Comment:Per Ambulatory Triage Form 03/06/2024 03/06/202403/17 1:22 AM EDT documented as of this encounter Care Teams Job Lithographer Relationship Specialty Start Date End Date Damir Orlando MD [address] [place] [address] [address] [place] [phone] [email or web address] PCP - General 05/20/17 08/10/21 Sharonda Caicedo MD [address] [place] [address] 7 [place] [address] [email or web address] PCP - General Family Medicine 08/11/21 Iker Pierre MD [address] [place] [address] [email or web address] Historical LMR Provider 05/09/17 07/26/21 Damir Orlando MD [address] [place], [place] [address] [place] [phone] [email or web address] Historical LMR Provider 05/09/17 Marilyn William NP [address] [place] [address] Historical LMR Provider 05/09/17 2 Vipin Madsen DO [address] [place] [address] 7 [place] [address] [email or web address] Historical LMR Provider 05/09/17 Majo Rose NP [address] [place] [address] Historical LMR Provider 05/09/17 2 Esteban Meredith MD [email or web address] Historical LMR Provider 05/09/17 Sunil Monroe MD [address] [place] [address] Historical LMR Provider 05/09/17 Yris Vizcaino FNP [address] [place] [address] 7 [place] [address] [email or web address] Historical LMR Provider 05/09/17 07/26/21 Brent Orlando MD [address] [place] [address] [address] [place] [phone] [email or web address] Historical LMR Provider 05/09/17 07/26/21 Eloina Fernandes, VANESSA [address] [place] [address] Historical LMR Provider 05/09/17 Lexy Correa MD [address] [place] [address] 7 [place] [address] [email or web address] Historical LMR Provider 05/09/17 07/26/21 Damir Orlando MD [address] [place], [place] [address] [place] [phone] [email or web address] Insurance Assigned Provider 11/19/18 12/27/21 Iwona Bustamante MD [address] [place] [address] 7 [place] [phone] [email or web address] Insurance Assigned Provider 12/27/21 10/24/22 Sharonda Caicedo MD [address] [place] [address] 7 [place] [address] [email or web address] Insurance Assigned Provider 11/21/22 12/26/22 documented as of this encounter Additional Source Comments The information contained in this document represents components of the legal health record. It is not the complete legal health record.[facility]
--- OUTSIDE RECORDS SUMMARY | 2025-03-28 15:26 | XMS_ITS | Encounter Summary ---
Author Organization [facility] Address [address] [place] [address] [place] [address] Phone Care Team Providers Care Metal Box Maker Name Role Phone Iker Pierre MD Unavailable Damir Orlando MD Unavailable Marilyn William LABOR AND DELIVERY NURSE Unavailable Vipin Madsen DO Unavailable Majo Rose LABOR AND DELIVERY NURSE Unavailable Esteban Meredith MD Unavailable [email or web address] Sunil Monroe MD Unavailable Yris Vizcaino SOLAR INSTALLER Unavailable Brent Orlando MD Unavailable Eloina Fernandes LABOR AND DELIVERY NURSE Unavailable Lexy Munguia MD Unavailable [phone] Damir Orlando MD Primary Care Provider [phone] Damir Orlando MD Unavailable Sharonda Caicedo MD Primary Care Provider [phone] Iwona Bustamante MD Unavailable Sharonda Caicedo MD Unavailable Reason for Referral * MRI/CAT Scan - Closed Specialty Diagnoses / Procedures Referred By Alfred viera Referred To Contact Radiology Diagnoses FH: colon polyps Iron deficiency anemia, unspecified iron deficiency anemia type Procedures CT Abdomen/Pelvis Vi Zhang PA Phone: tel: fax: Referral ID Status Reason Start Date Expiration Date Visits Re quested Visits Authorized [id number] Closed 01/03/2018 02/01/2018 1 1 Encounter Details Date Type Department Care Team (Late st Contact Info) Description 12/30/2017 Ancillary Orders Virtual Department [address] [place] [address] Vi Zhang PA [address] [place] [address] FH: colon polyps; Iron deficiency anemia, unspecified iron deficiency anemia type Social History Tobacco Use Types Packs/Day Years [...] Description 02/17/2025 11:59 PM EDT Anesthesia Event [address] [address] Arturo Balderas MD 30 [place] [address] 04/18/2025 10:30 AM EDT Office Visit [address] [address] Sharonda Caicedo MD [address] [place] [address], [address] [place] [address] [email or web address] documented as of this encounter Results * CT ABDOMEN/PELVIS WITH CONTRAST (01/07/2018 11:33 AM EDT) Anatomical Region Laterality Modality Abdomen, Pelvis Computed Tomogra phy 01/07/2018 11:2 6 AM EDT Impressions 01/07/2018 11:45 AM EDT Prominent amount of stool evident in the rectosigmoid and left colon without circumferential mass lesion noted. This exam does not allow exclusion of significant polyps in the colon. Colonoscopy would be suggested for more definitive assessment. TOTAL CTDIvol: 5.40 mGy S/S: Family history of colonic polyps, iron deficiency anemia, abnormal weight loss, fatigue POS - [id number] Narrative 01/07/2018 11:45 AM EDT COMPARISON: CT abdomen pelvis December 26, 2016 TECHNIQUE: After the administration of oral and intravenous contrast, multidetector CT is obtained from dome of the liver through the inferior pubic rami. Multiplanar reformatted images generated. Automated exposure control utilized. FINDINGS: The lung bases are clear. No significant pleural fluid is seen. The liver is relatively homogeneous. No focal findings concern are noted. No bile duct dilatation is seen. The spleen is unremarkable. The pancreas appears normal. No adrenal masses are seen. The kidneys are unremarkable. No hydronephrosis is seen. No upper urinary tract calculi are identified. No periaortic lymphadenopathy is seen. There is a large amount stool evident in the rectosigmoid colon and left colon which limits assessment for nodules or polyps. No bowel distention or displacement is seen. No small bowel distention or bowel obstruction is suggested. The terminal ileum is unremarkable. I cannot identify definitive appendix. With the history provided, colonoscopy is recommended for further assessment. Urinary bladder is unremarkable. There are negligible degenerative changes in the lumbar spine. Procedure Note Nadeem Andrea MD - 01/07/2018 COMPARISON: CT abdomen pelvis December 26, 2016 TECHNIQUE: After the administration of oral and intravenous contrast,multidetector CT is obtained from dome of the liver through the inferiorpubic rami. Multiplanar reformatted images generated. Automated exposurecontrol utilized. FINDINGS: The lung bases are clear. No significant pleural fluid is seen. The liver is relatively homogeneous. No focal findings concern are noted.No bile duct dilatation is seen. The spleen is unremarkable. The pancreas appears normal. No adrenal masses are seen. The kidneys are unremarkable. No hydronephrosis is seen. No upper urinarytract calculi are identified. No periaortic lymphadenopathy is seen. There is a large amount stool evident in the rectosigmoid colon and leftcolon which limits assessment for nodules or polyps. No bowel distentionor displacement is seen. No small bowel distention or bowel obstruction issuggested. The terminal ileum is unremarkable. I cannot identifydefinitive appendix. With the history provided, colonoscopy is recommendedfor further assessment. Urinary bladder is unremarkable. There are negligible degenerative changes in the lumbar spine. IMPRESSION: Prominent amount of stool evident in the rectosigmoid and left colonwithout circumferential mass lesion noted. This exam does not allowexclusion of significant polyps in the colon. Colonoscopy would besuggested for more definitive assessment. TOTAL CTDIvol: 5.40 mGy S/S: Family history of colonic polyps, iron deficiency anemia, abnormalweight loss, fatigue POS - [id number] Vi COX IMG CT ABD/PELVIS Final Res ult documented in this encounter Visit Diagnoses Diagnosis FH: colon polyps Family history of colonic polyps Iron deficiency anemia, unspecified iron deficiency anemia type FH: colon polyps Family history of colonic polyps Iron deficiency anemia, unspecified iron deficiency anemia type documented in this encounter Additional Health Concerns Infection Onset Date Last Indicated Resolved Time CoV-Exposed Comment:Recent close contact 07/25/2020 07/25/2020 08/08/2020 1:24 AM EST CoV-Risk Comment:Per Ambulatory Triage Form 09/10/2022 09/10/202209/10 2:22 PM EST CoV-Presumed 09/10/2022 09/10/2022 10/01/2022 1:22 AM EDT CoV-Risk Comment:Per Ambulatory Triage Form 03/06/2024 03/06/202403/17 1:22 AM EDT documented as of this encounter Care Teams Metal Box Maker Relationship Specialty Start Date End Date Damir Orlando MD [address] [place] [address] [address] [place] [address] PCP - General 05/20/17 08/10/21 Sharonda Caicedo MD [address] [place] [address] 7 [place] [address] [email or web address] PCP - General Family Medicine 08/11/21 Iker Pierre MD [address] [place] [address] Historical LMR Provider 05/09/17 07/26/21 Damir Orlando MD [address] [place] [address] [address] [place] [address] Historical LMR Provider 05/09/17 Marilyn William LABOR AND DELIVERY NURSE 1 [place] [address] Historical LMR Provider 05/09/17 2 Vipin Madsen DO [address] [place] [address] 7 [place] [address] [email or web address] Historical LMR Provider 05/09/17 Majo Rose NP [address] [place] [address] Historical LMR Provider 05/09/17 2 Esteban Meredith MD [email or web address] Historical LMR Provider 05/09/17 Sunil Monroe MD [address] [place] [address] Historical LMR Provider 05/09/17 Yris Vizcaino FNP [address] [place] [address] 7 [place] [address] [email or web address] Historical LMR Provider 05/09/17 07/26/21 Brent Orlando MD [address] [place] [phone] [email or web address] Historical LMR Provider 05/09/17 07/26/21 Eloina Fernandes, VANESSA [address] [place] [address] Historical LMR Provider 05/09/17 2 Lexy Munguia MD [address] [place] [address] 7 [place] [address] [email or web address] Historical LMR Provider 05/09/17 07/26/21 Damir Orlando MD [address] [place], [place] [address] [place] [address] [email or web address] Insurance Assigned Provider 11/19/18 12/27/21 Iwona Bustamante MD [address] [place] [address] 7 [place] [address] [email or web address] Insurance Assigned Provider 12/27/21 10/24/22 Sharonda Caicedo MD [address] [place] [address] [address] [place] [address] [email or web address] Insurance Assigned Provider 11/21/22 12/26/22 documented as of this encounter Additional Source Comments The information contained in this document represents components of the legal health record. It is not the complete legal health record.[facility]
--- OUTSIDE RECORDS SUMMARY | 2025-03-28 15:26 | XMS_ITS | Encounter Summary ---
Author Organization [facility] Address [address] [place] [address] [place] [address] Phone Care Team Providers Care Outbound Supervisor Name Role Phone Iker Pierre MD Unavailable [phone] Damir Orlando MD Unavailable Marilyn William ROTARY SOIL STABILIZER OPERATOR Unavailable Vipin Madsen DO Unavailable Majo Rose ROTARY SOIL STABILIZER OPERATOR Unavailable Esteban Meredith MD Unavailable [email or web address] Sunil Monroe MD Unavailable Yris Vizcaino HOURLY SIGN LANGUAGE INTERPRETER Unavailable Brent Orlando MD Unavailable [phone] Eloina Fernandes ROTARY SOIL STABILIZER OPERATOR Unavailable Lexy Munguia MD Unavailable [phone] Damir Orlando MD Primary Care Provider [phone] Damir Orlando MD Unavailable Sharonda Caicedo MD Primary Care Provider Iwona Bustamante MD Unavailable Sharonda Caicedo MD Unavailable Encounter Details Date Type Department Care Team (Late st Contact Info) Description 12/30/2017 Procedure Pass [facility], Ct Scan - [facility] [address] [place] [address] Social History Tobacco Use Types Packs/Day Years [...] Description 02/17/2025 11:59 PM EDT Anesthesia Event [facility] [address] [place] [address] Arturo Balderas MD 30 [place] [address] [email or web address] 04/18/2025 10:30 AM EDT Office Visit [facility] [address] [place] [address] Sharonda Caicedo MD [address] [place] [address], [facility] 7 [place] [address] [email or web address] documented as of this encounter Visit Diagnoses [...] documented as of this encounter Care Teams Outbound Supervisor Relationship Specialty Start Date End Date Damir Orlando MD [address] [place] [address] [address] [place] [phone] [email or web address] PCP - General 05/20/17 08/10/21 Sharonda Caicedo MD [address] [place] [address] 7 [place] [address] [email or web address] PCP - General Family Medicine 08/11/21 Iker Pierre MD [address] [place] [address] [email or web address] Historical LMR Provider 05/09/17 07/26/21 Damir Orlando MD [address] [place] [address] [address] [place] [phone] [email or web address] Historical LMR Provider 05/09/17 Marilyn William NP [address] [place] [address] Historical LMR Provider 05/09/17 2 Vipin Madsen DO [address] [place] [address] 7 [place] [address] [email or web address] Historical LMR Provider 05/09/17 Majo Rose NP [address] [place] [address] Historical LMR Provider 05/09/17 2 Esteban Meredith MD [email or web address] Historical LMR Provider 05/09/17 Sunil Monroe MD [address] [place] [address] Historical LMR Provider 05/09/17 Yris Vizcaino FNP [address] [place] [address] 7 [place] [address] [email or web address] Historical LMR Provider 05/09/17 07/26/21 Brent Orlando MD [address] [place] [address] 7 [place] [phone] [email or web address] Historical LMR Provider 05/09/17 07/26/21 Eloina Fernandes, VANESSA [address] [place] [address] Historical LMR Provider 05/09/17 Lexy Correa MD [address] [place] [address] 7 [place] [address] [email or web address] Historical LMR Provider 05/09/17 07/26/21 Damir Orlando MD [address] [place], [place] [address] [place] [address] [email or web address] Insurance Assigned Provider 11/19/18 12/27/21 Iwona Bustamante MD [address] [place] [address] 7 [place] [address] [email or web address] Insurance Assigned Provider 12/27/21 10/24/22 Sharonda Caicedo MD [address] [place] [address], [address] [place] [address] [email or web address] Insurance Assigned Provider 11/21/22 12/26/22 documented as of this encounter Additional Source Comments The information contained in this document represents components of the legal health record. It is not the complete legal health record.[facility]
== END 2025-03-28 12:54 | disposition home or self-care (01) ==
LOC: HO.RHES 12:23
PROVIDERS: PCP Student in an Organized Health Care Education/Training Program; Visit Provider Student in an Organized Health Care Education/Training Program
DX: L40.50 Arthropathic psoriasis, unspecified (principal); R74.01 Elevation of levels of liver transaminase levels; Z79.61 Long term (current) use of immunomodulator
CPT/HCPCS: 99214